=== PATIENT | female | born 1990 | race Caucasian/White ===

== ENCOUNTER → 2016-05-13 | Outpatient (REF) | payer BC ==
[~2016-05-13] MED LIST: CLAR10CA3 PO; CYMB1CAP5 PO; METF500T PO; OMEP20CA3 PO; PLAQUENIL PO; PRENTAB52 PO; TYLE325C PO
== END ==
LOC: M SFHCPLAZ 17:07
PROVIDERS: ATTEND Nurse Practitioner Adult Health
DX: J06.9 Acute upper respiratory infection, unspecified (principal)

== ENCOUNTER 2016-05-17 12:48 | Emergency (ER) | payer BC ==
[2016-05-17] MEDS ORDERED: MECLIZINE 12.5 MG TAB As Ordered ONE (16:52)
[2016-05-17 17:22] LABS: BASO % 0.5 % (0.0-1.0); EOS # 0.2 K/mm3 (0.0-0.50); EOS % 2.6 % (0.0-3.0); LARGE UNSTAINED CELL # 0.3 K/mm3 (0.0-0.4); LARGE UNSTAINED CELL % 3.5 % (0.0-4.0); LYMPH # 2.3 K/mm3 (1.5-6.5); LYMPH % 24.2 % (24.0-44.0); MEAN CORPUSCULAR HEMOGLOBIN 30.5 pg (27.0-33.0); MEAN CORPUSCULAR HGB CONC 34.6 g/dl (32.0-36.5); MEAN CORPUSCULAR VOLUME 88.1 fl (80.0-96.0); MONO # 0.4 K/mm3 (0.0-0.8); MONO % 4.6 % (0.0-5.0); NEUTROPHILS # 6.1 K/mm3 (1.8-7.7); NEUTROPHILS % 64.6 % (36.0-66.0); PLATELET COUNT, AUTOMATED 344 k/mm3 (150-450); RED CELL DISTRIBUTION WIDTH 12.4 % (11.5-14.5); WHITE BLOOD COUNT 9.5 K/mm3 (4.0-10.0)
[2016-05-17 17:26] LABS: CONTROL LINE UCG INT CTR LINE PRESENT
[2016-05-17 17:53] LABS: ALBUMIN 4.1 GM/DL (3.2-5.2); ALBUMIN/GLOBULIN RATIO 0.91 (1.00-1.93); ALKALINE PHOSPHATASE 92 U/L (45-117); ALT/SGPT 76 U/L (12-78); ANION GAP 12 MEQ/L (8-16); AST/SGOT 62 U/L (15-37); BILIRUBIN,DIRECT 0.1 MG/DL (0.0-0.2); BILIRUBIN,TOTAL 0.5 MG/DL (0.2-1.0); BLOOD UREA NITROGEN 8 MG/DL (7-18); CALCIUM LEVEL 9.1 MG/DL (8.5-10.1); CARBON DIOXIDE LEVEL 26 MEQ/L (21-32); CHLORIDE LEVEL 99 MEQ/L (98-107); CREATININE FOR GFR 0.65 MG/DL (0.55-1.02); GLOMERULAR FILTRATION RATE > 60.0 (>60); GLUCOSE, FASTING 113 MG/DL (70-105); POTASSIUM SERUM 3.8 MEQ/L (3.5-5.1); SODIUM LEVEL 137 MEQ/L (136-145); T UPTAKE 31 % (30-39); THYROXINE (T4) 10.3 UG/DL (4.5-12.0); TOTAL PROTEIN 8.6 GM/DL (6.4-8.2)
--- NOTE | 2016-05-17 18:42 | EDDOCDS ---
Nurse's Notes [facility] Name: Leann Roberts Age: 26 yrs Sex: Female : 1990 Arrival Date: 05/17/2016 Time: 12:48 Bed TR8 Private MD: April Corey E. Diagnosis: Dizziness and giddiness;Acute pharyngitis Presentation: 05/17 13:04 Presenting complaint: Patient states: that she has had strep throat approx 3 times in ms18 the last month and is now c/o dizziness. Pt called her doctor and was instructed to come to the ED for further evaluation. Adult Sepsis Screening: The patient does not have new or worsening altered mentation. Patient's respiratory rate is less than 22. Systolic blood pressure is greater than 100. Patient has a qSOFA score of 0- Negative Sepsis Screen. Suicide/Homicide risk assessment- the patient denies having any suicidal and/or homicidal ideations and does not present with any other emotional, behavioral or mental health complaints. Status: Patient is not a extension service advisor or dependent. Transition of care: patient was not received from another setting of care. 13:04 Acuity: RAINA Level 3 ms18 13:04 Method Of Arrival: Walkin/Carried/Asstd ms18 Triage Assessment: 13:09 General: Appears in no apparent distress, comfortable, obese, Behavior is appropriate ms18 for age, cooperative. Pain: Location: "general" body pain Pain currently is 4 out of 10 on a pain scale. HIV screening NA for this visit Offered previously. Neurological: Level of Consciousness is awake, alert, obeys commands, Oriented to person, place, time. Respiratory: Airway is patent Respiratory effort is even, unlabored. Derm: Skin is pink, warm & dry. 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 Claritin 10 mg Oral tab 1 tab once daily 2. Cymbalta 30 mg Oral cpDR 1 cap once daily 3. metformin 500 mg oral tab 1 tab daily 4. multivitamin Oral tab 1 tab daily 5. omeprazole 20 mg Oral cpDR 1 cap once daily 6. Vitamin D Oral 4000 unit 7. Plaquenil 400 mg Oral once daily 8. penicillin V potassium 500 mg Oral tab 1 tab every 12 hours 9. albuterol sulfate 90 mcg/actuation Inhl HFAA 1 puff as needed 10. Singulair Oral new med, hasn't started taking this yet - PMHx: Diabetes - NIDDM: controlled; Endometriosis; Annette's Disease; IBS; Lupus; Migraine Headaches; - PSHx: R kidney biopsy; Adenoidectomy; Skin Graft; Colonoscopy; Endoscopy, Upper; - Social history: Smoking status: Patient states was never smoker of tobacco. No barriers to communication noted, The patient speaks fluent Portuguese. - Family history: Not pertinent. - : The pt / caregiver states he / she is not on anticoagulants. Home medication list is obtained from the patient. - Exposure Risk Screening:: None identified. Screenin:38 Screening information is obtained from the patient. Fall risk: No risks identified. ms18 Assistance ADL's: requires no assistance with activities of daily living. Abuse/DV Screen: The patient / caregiver reports he/she is: not in a situation that causes fear, pain or injury. Nutritional screening: No deficits noted. Advance Directives: There is no living will. home support is adequate. Assessment: 17:05 General: Appears in no apparent distress, comfortable, Behavior is appropriate for age, ms18 cooperative. Neurological: Level of Consciousness is awake, alert, obeys commands, Oriented to person, place, time, Moves all extremities. Gait is steady, Speech is normal, Facial symmetry appears normal. Respiratory: Airway is patent Respiratory effort is even, unlabored. Derm: Skin is pink, warm & dry. 18:38 General: Appears in no apparent distress, comfortable, Behavior is appropriate for age, ms18 cooperative, quiet. Pain: Denies pain. Neurological: Level of Consciousness is awake, alert, obeys commands, Oriented to person, place, time. Respiratory: Airway is patent Respiratory effort is even, unlabored, Respiratory pattern is regular, symmetrical. GI: Abdomen is non- distended. Derm: Skin is pink, warm & dry. Vital Signs: 12:49 BP 154 / 96; Pulse 91; Resp 18 S; Temp 98.5(O); Pulse Ox 99% on R/A; Weight 95.25 kg dd6 (R); Height 5 ft. 5 in. (165.10 cm) (R); 15:32 BP 138 / 93; Pulse 96; Resp 18; Temp 98.2(TE); Pulse Ox 98% on R/A; Pain 4/10; ar3 18:38 BP 136 / 96; Pulse 80; Resp 18; Temp 97; Pulse Ox 98% ; Pain 0/10; ms18 12:49 Body Mass Index 34.95 (95.25 kg, 165.10 cm) dd6 Vitals: 12:49 Log In Time: May 17, 2016 at 12:47. dd6 ED Course: 12:49 Patient visited by Eduardo Myers PCA. dd6 12:49 April Corey is Private Physician. dd6 12:49 Patient moved to Waiting dd6 12:50 Patient moved to Pre RCE dd6 13:05 Triage Initiated ms18 15:35 Patient visited by Kassie Marley PCA. ar3 16:09 Patient moved to Triage 3 ar3 16:34 Cuco Cisneros PA is PHCP. mo1 16:34 Tg Samuel MD is Attending Physician. mo1 16:48 Patient visited by Cuco Cisneros PA. mo1 17:04 [facility] Payment Agreement was scanned into [employer] and attached to record. gjb 17:04 Thyroid Profile Sent. ms18 17:04 Basic Metabolic Profile Sent. ms18 17:04 CBC with Diff Sent. ms18 17:04 Liver Profile Sent. ms18 17:04 Urinalysis Sent. ms18 17:04 Urine Test-In Lab Sent. ms18 17:06 Patient moved to TR2 ms18 18:08 Patient moved to PD ms18 18:17 Patient visited by Fern Hilton RN. ms18 18:29 April Corey is Referral Physician. mo1 18:36 Nicolas Ramos is Referral Physician. mo1 18:38 Patient moved to TR8 ms18 18:38 The patient / caregiver is instructed regarding the plan of care and ED course. Patient ms18 has correct armband on for positive identification. Property sent home with patient. :Personal belongings accompany Pt. 18:38 No IV's were initiated during this patient's visit. No procedures done that require ms18 assistance. Administered Medications: 17:04 Drug: Meclizine 25 mg [meclizine 12.5 mg tablet (2 tabs)] Route: PO; ms18 Order Results: Lab Order: Basic Metabolic Profile; SPEC'M 05/17/16 17:02 Test: GLUCOSE, FASTING; Value: 113; Range: 70-105; Abnormal: Above high normal; Units: MG/DL; Status: F Test: BLOOD UREA NITROGEN; Value: 8; Range: 7-18; Units: MG/DL; Status: F Test: CREATININE FOR GFR; Value: 0.65; Range: 0.55-1.02; Units: MG/DL; Status: F Test: GLOMERULAR FILTRATION RATE; Value: > 60.0; Range: >60; Status: F Test: SODIUM LEVEL; Value: 137; Range: 136-145; Units: MEQ/L; Status: F Test: POTASSIUM SERUM; Value: 3.8; Range: 3.5-5.1; Units: MEQ/L; Status: F Test: CHLORIDE LEVEL; Value: 99; Range: 98-107; Units: MEQ/L; Status: F Test: CARBON DIOXIDE LEVEL; Value: 26; Range: 21-32; Units: MEQ/L; Status: F Test: ANION GAP; Value: 12; Range: 8-16; Units: MEQ/L; Status: F Test: CALCIUM LEVEL; Value: 9.1; Range: 8.5-10.1; Units: MG/DL; Status: F Test Note: ; Units are mL/min/1.73 m2 Chronic Kidney Disease Staging per NKF: Stage I & II GFR >=60 Normal to Mildly Decreased Stage III GFR 30-59 Moderately Decreased Stage IV GFR 15-29 Severely Decreased Stage V GFR <15 Very Little GFR Left ESRD GFR <15 on 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 Lab Order: CBC with Diff; SPEC'M 05/17/16 17:02 Test: WHITE BLOOD COUNT; Value: 9.5; Range: 4.0-10.0; Units: K/mm3; Status: F Test: RED BLOOD COUNT; Value: 4.89; Range: 4.00-5.40; Units: M/mm3; Status: F Test: HEMOGLOBIN; Value: 14.9; Range: 12.0-16.0; Units: g/dl; Status: F Test: HEMATOCRIT; Value: 43.1; Range: 36.0-47.0; Units: %; Status: F Test: MEAN CORPUSCULAR VOLUME; Value: 88.1; Range: 80.0-96.0; Units: fl; Status: F Test: MEAN CORPUSCULAR HEMOGLOBIN; Value: 30.5; Range: 27.0-33.0; Units: pg; Status: F Test: MEAN CORPUSCULAR HGB CONC; Value: 34.6; Range: 32.0-36.5; Units: g/dl; Status: F Test: RED CELL DISTRIBUTION WIDTH; Value: 12.4; Range: 11.5-14.5; Units: %; Status: F Test: PLATELET COUNT, AUTOMATED; Value: 344; Range: 150-450; Units: k/mm3; Status: F Test: NEUTROPHILS %; Value: 64.6; Range: 36.0-66.0; Units: %; Status: F Test: LYMPH %; Value: 24.2; Range: 24.0-44.0; Units: %; Status: F Test: MONO %; Value: 4.6; Range: 0.0-5.0; Units: %; Status: F Test: EOS %; Value: 2.6; Range: 0.0-3.0; Units: %; Status: F Test: BASO %; Value: 0.5; Range: 0.0-1.0; Units: %; Status: F Test: LARGE UNSTAINED CELL %; Value: 3.5; Range: 0.0-4.0; Units: %; Status: F Test: NEUTROPHILS #; Value: 6.1; Range: 1.8-7.7; Units: K/mm3; Status: F Test: LYMPH #; Value: 2.3; Range: 1.5-6.5; Units: K/mm3; Status: F Test: MONO #; Value: 0.4; Range: 0.0-0.8; Units: K/mm3; Status: F Test: EOS #; Value: 0.2; Range: 0.0-0.50; Units: K/mm3; Status: F Test: BASO #; Value: 0.0; Range: 0.0-0.2; Units: K/mm3; Status: F Test: LARGE UNSTAINED CELL #; Value: 0.3; Range: 0.0-0.4; Units: K/mm3; Status: F Lab Order: Liver Profile; SPEC'M 05/17/16 17:02 Test: AST/SGOT; Value: 62; Range: 15-37; Abnormal: Above high normal; Units: U/L; Status: F Test: ALT/SGPT; Value: 76; Range: 12-78; Units: U/L; Status: F Test: ALKALINE PHOSPHATASE; Value: 92; Range: 45-117; Units: U/L; Status: F Test: BILIRUBIN,TOTAL; Value: 0.5; Range: 0.2-1.0; Units: MG/DL; Status: F Test: BILIRUBIN,DIRECT; Value: 0.1; Range: 0.0-0.2; Units: MG/DL; Status: F Test: TOTAL PROTEIN; Value: 8.6; Range: 6.4-8.2; Abnormal: Above high normal; Units: GM/DL; Status: F Test: ALBUMIN; Value: 4.1; Range: 3.2-5.2; Units: GM/DL; Status: F Test: ALBUMIN/GLOBULIN RATIO; Value: 0.91; Range: 1.00-1.93; Abnormal: Below low normal; Status: F Lab Order: Urinalysis; SPEC'M 05/17/16 16:54 Test: APPEARANCE, URINE; Value: HAZY; Range: CLEAR; Status: F Test: COLOR, URINE; Value: YELLOW; Range: YELLOW; Status: F Test: PH,URINE; Value: 5.0; Range: 5.0-9.0; Units: UNITS; Status: F Test: SPECIFIC GRAVITY URINE AUTO; Value: 1.024; Range: 1.002-1.035; Status: F Test: PROTEIN, URINE AUTO; Value: 2+; Range: NEGATIVE; Abnormal: Above high normal; Units: mg/dL; Status: F Test: GLUCOSE, URINE (UA) AUTO; Value: NEGATIVE; Range: NEGATIVE; Units: mg/dL; Status: F Test: KETONE, URINE AUTO; Value: 1+; Range: NEGATIVE; Abnormal: Above high normal; Units: mg/dL; Status: F Test: UROBILINOGEN, URINE AUTO; Value: 0.2; Range: 0.0-2.0; Units: mg/dL; Status: F Test: BILIRUBIN, URINE AUTO; Value: NEGATIVE; Range: NEGATIVE; Status: F Test: NITRITE, URINE AUTO; Value: NEGATIVE; Range: NEGATIVE; Status: F Test: LEUKOCYTE ESTERASE, URINE AUTO; Value: NEGATIVE; Range: NEGATIVE; Status: F Test: BLOOD, URINE BLOOD; Value: NEGATIVE; Range: NEGATIVE; Status: F Test: WBC, URINE AUTO; Value: 0; Range: 0-3; Units: /HPF; Status: F Test: RBC, URINE AUTO; Value: 2; Range: 0-3; Units: /HPF; Status: F Test: BACTERIA, URINE AUTO; Value: NEGATIVE; Range: NEGATIVE; Status: F Test: SQUAMOUS EPITHELIAL CELL UR AU; Value: 2; Range: 0-6; Units: /HPF; Status: F Test: MUCUS, URINE; Value: SMALL; Range: NEGATIVE; Status: F Test: HYALINE CAST, URINE AUTO; Value: 0; Range: 0-1; Units: /LPF; Status: F Lab Order: Urine Test-In Lab; SPEC'M 05/17/16 16:54 Test: URINE PREG TEST; Value: NEGATIVE; Range: NEGATIVE; Status: F Lab Order: Thyroid Profile; SPEC'M 05/17/16 17:02 Test: T UPTAKE; Value: 31; Range: 30-39; Units: %; Status: F Test: THYROXINE (T4); Value: 10.3; Range: 4.5-12.0; Units: UG/DL; Status: F Test: FREE THYROXINE INDEX; Value: 3.2; Range: 1.3-4.8; Units: %; Status: F Test: THYROID STIMULATING HORMONE; Value: 2.240; Range: 0.358-3.740; Units: uIU/ML; Status: F Outcome: 18:29 Discharge ordered by Provider. mo1 18:38 Discharge Assessment: Patient awake, alert and oriented x 3. No cognitive and/or ms18 functional deficits noted. Patient verbalized understanding of disposition instructions. patient administered narcotics - yes. Pt provided with safe discharge. The following High Risk Discharge criteria are identified: None. Discharged to home ambulatory. Condition: good Condition: stable Condition: improved. Discharge instructions given to patient, Instructed on discharge instructions, follow up and referral plans. Demonstrated understanding of instructions, Pt was receptive of discharge instructions/ teaching. No special radiology studies were completed. 18:41 Patient left the ED. ms18 Signatures: Eduardo Myers, HIGH SCHOOL FOREIGN LANGUAGE TUTOR HIGH SCHOOL FOREIGN LANGUAGE TUTOR dd6 Kassie Marley, HIGH SCHOOL FOREIGN LANGUAGE TUTOR HIGH SCHOOL FOREIGN LANGUAGE TUTOR ar3 Cuco iCsneros PA PA mo1 Fern Hilton,RN RN ms18 Deloris Kimble MTDD
--- NOTE | 2016-05-17 18:42 | EDDOCDS ---
Physician Documentation [facility] Name: Leann Roberts Age: 26 yrs Sex: Female : 1990 Arrival Date: 05/17/2016 Time: 12:48 Bed TR8 Private MD: April Corey E. Disposition: 05/17/16 18:29 Discharged to Home/Self Care. Impression: Dizziness and giddiness, Acute pharyngitis. - Condition is Stable. - Discharge Instructions: Dizziness, Pharyngitis, Strep Throat. - Medication Reconciliation, Local Pharmacy Hours form. - Follow up: April Corey; When: Call to arrange an appointment; Reason: Recheck today's complaints, Continuance of care. Follow up: Nicolas Ramos; When: Call to arrange an appointment; Reason: Recheck today's complaints, Continuance of care. - Problem is new. - Symptoms are unchanged. Historical: - Allergies: Bees; SULFA (SULFONAMIDES); - Home Meds: 1. Claritin 10 mg Oral tab 1 tab once daily 2. Cymbalta 30 mg Oral cpDR 1 cap once daily 3. metformin 500 mg oral tab 1 tab daily 4. multivitamin Oral tab 1 tab daily 5. omeprazole 20 mg Oral cpDR 1 cap once daily 6. Vitamin D Oral 4000 unit 7. Plaquenil 400 mg Oral once daily 8. penicillin V potassium 500 mg Oral tab 1 tab every 12 hours 9. albuterol sulfate 90 mcg/actuation Inhl HFAA 1 puff as needed 10. Singulair Oral new med, hasn't started taking this yet - PMHx: Diabetes - NIDDM: controlled; Endometriosis; Annette's Disease; IBS; Lupus; Migraine Headaches; - PSHx: R kidney biopsy; Adenoidectomy; Skin Graft; Colonoscopy; Endoscopy, Upper; - Social history: Smoking status: Patient states was never smoker of tobacco. No barriers to communication noted, The patient speaks fluent Bulgarian. - Family history: Not pertinent. - : The pt / caregiver states he / she is not on anticoagulants. Home medication list is obtained from the patient. - Exposure Risk Screening:: None identified. 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 5 in. (165.10 cm) (R); 15:32 BP 138 / 93; Pulse 96; Resp 18; Temp 98.2(TE); Pulse Ox 98% on R/A; Pain 4/10; ar3 18:38 BP 136 / 96; Pulse 80; Resp 18; Temp 97; Pulse Ox 98% ; Pain 0/10; ms18 12:49 Body Mass Index 34.95 (95.25 kg, 165.10 cm) dd6 MDM: 16:47 Undress patient appropriately for examination ordered. mo1 16:47 Meclizine 25 mg PO once ordered. mo1 16:48 Basic Metabolic Profile Ordered. EDMS 16:48 CBC with Diff Ordered. EDMS 16:48 Liver Profile Ordered. EDMS 16:48 Urinalysis Ordered. EDMS 16:48 Urine Test-In Lab Ordered. EDMS 16:48 Thyroid Profile Ordered. EDMS 16:48 NOTHING BY MOUTH+DIET ordered. EDMS 17:03 Financial registration complete. gjb 17:04 [facility] Payment Agreement was scanned into [employer] and attached to record. gjb 17:55 CBC with Diff Reviewed. mo1 17:55 Urinalysis Reviewed. mo1 17:56 Urine Test-In Lab Reviewed. mo1 18:10 Liver Profile Reviewed. mo1 18:10 Thyroid Profile Reviewed. mo1 18:10 Basic Metabolic Profile Reviewed. mo1 Administered Medications: 17:04 Drug: Meclizine 25 mg [meclizine 12.5 mg tablet (2 tabs)] Route: PO; ms18 Signatures: Dispatcher [employer] EDMS Cuco Cisneros PA PA mo1 Fern Hilton RN RN ms18 Deloris Kimble The chart was reviewed and I authenticate all verbal orders and agree with the evaluation and treatment provided.Attachments: 17:04 [facility] Payment Agreement gjb MTDD
--- NOTE | 2016-05-19 19:42 | EDDOCDS ---
Physician Documentation [facility] Name: Leann Roberts Age: 26 yrs Sex: Female : 1990 Arrival Date: 05/17/2016 Time: 12:48 Bed TR8 Private MD: April Corey E. Disposition: 05/17/16 18:29 Discharged to Home/Self Care. Impression: Dizziness and giddiness, Acute pharyngitis. - Condition is Stable. - Discharge Instructions: Dizziness, Pharyngitis, Strep Throat. - Medication Reconciliation, Local Pharmacy Hours form. - Follow up: April Corey; When: Call to arrange an appointment; Reason: Recheck today's complaints, Continuance of care. Follow up: Nicolas Ramos; When: Call to arrange an appointment; Reason: Recheck today's complaints, Continuance of care. - Problem is new. - Symptoms are unchanged. Historical: - Allergies: Bees; SULFA (SULFONAMIDES); - Home Meds: 1. Claritin 10 mg Oral tab 1 tab once daily 2. Cymbalta 30 mg Oral cpDR 1 cap once daily 3. metformin 500 mg oral tab 1 tab daily 4. multivitamin Oral tab 1 tab daily 5. omeprazole 20 mg Oral cpDR 1 cap once daily 6. Vitamin D Oral 4000 unit 7. Plaquenil 400 mg Oral once daily 8. penicillin V potassium 500 mg Oral tab 1 tab every 12 hours 9. albuterol sulfate 90 mcg/actuation Inhl HFAA 1 puff as needed 10. Singulair Oral new med, hasn't started taking this yet - PMHx: Diabetes - NIDDM: controlled; Endometriosis; Annette's Disease; IBS; Lupus; Migraine Headaches; - PSHx: R kidney biopsy; Adenoidectomy; Skin Graft; Colonoscopy; Endoscopy, Upper; - Social history: Smoking status: Patient states was never smoker of tobacco. No barriers to communication noted, The patient speaks fluent Nepali. - Family history: Not pertinent. - : The pt / caregiver states he / she is not on anticoagulants. Home medication list is obtained from the patient. - Exposure Risk Screening:: None identified. 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 5 in. (165.10 cm) (R); 15:32 BP 138 / 93; Pulse 96; Resp 18; Temp 98.2(TE); Pulse Ox 98% on R/A; Pain 4/10; ar3 18:38 BP 136 / 96; Pulse 80; Resp 18; Temp 97; Pulse Ox 98% ; Pain 0/10; ms18 12:49 Body Mass Index 34.95 (95.25 kg, 165.10 cm) dd6 MDM: 16:47 Undress patient appropriately for examination ordered. mo1 16:47 Meclizine 25 mg PO once ordered. mo1 16:48 Basic Metabolic Profile Ordered. EDMS 16:48 CBC with Diff Ordered. EDMS 16:48 Liver Profile Ordered. EDMS 16:48 Urinalysis Ordered. EDMS 16:48 Urine Test-In Lab Ordered. EDMS 16:48 Thyroid Profile Ordered. EDMS 16:48 NOTHING BY MOUTH+DIET ordered. EDMS 17:03 Financial registration complete. gjb 17:04 [facility] Payment Agreement was scanned into [employer] and attached to record. gjb 17:55 CBC with Diff Reviewed. mo1 17:55 Urinalysis Reviewed. mo1 17:56 Urine Test-In Lab Reviewed. mo1 18:10 Liver Profile Reviewed. mo1 18:10 Thyroid Profile Reviewed. mo1 18:10 Basic Metabolic Profile Reviewed. mo1 05/18 11:03 T-Sheet-- Draft Copy was scanned into [employer] and attached to record. gb Administered Medications: 05/17 17:04 Drug: Meclizine 25 mg [meclizine 12.5 mg tablet (2 tabs)] Route: PO; ms18 Signatures: Dispatcher [employer] EDMS Aleyda Miranda, Cuco Johnston PA PA mo1 Fern Hilton RN RN ms18 Deloris Kimbleb The chart was reviewed and I authenticate all verbal orders and agree with the evaluation and treatment provided.Attachments: 17:04 [facility] Payment Agreement [employer] [facility] 05/18 11:03 T-Sheet-- Draft Copy gb Chart Complete MTDD
--- NOTE | 2016-05-19 19:42 | EDDOCDS ---
Nurse's Notes [facility] Name: Leann Roberts Age: 26 yrs Sex: Female : 1990 Arrival Date: 05/17/2016 Time: 12:48 Bed TR8 Private MD: April Corey E. Diagnosis: Dizziness and giddiness;Acute pharyngitis Presentation: 05/17 13:04 Presenting complaint: Patient states: that she has had strep throat approx 3 times in ms18 the last month and is now c/o dizziness. Pt called her doctor and was instructed to come to the ED for further evaluation. Adult Sepsis Screening: The patient does not have new or worsening altered mentation. Patient's respiratory rate is less than 22. Systolic blood pressure is greater than 100. Patient has a qSOFA score of 0- Negative Sepsis Screen. Suicide/Homicide risk assessment- the patient denies having any suicidal and/or homicidal ideations and does not present with any other emotional, behavioral or mental health complaints. Status: Patient is not a track service person or dependent. Transition of care: patient was not received from another setting of care. 13:04 Acuity: RAINA Level 3 ms18 13:04 Method Of Arrival: Walkin/Carried/Asstd ms18 Triage Assessment: 13:09 General: Appears in no apparent distress, comfortable, obese, Behavior is appropriate ms18 for age, cooperative. Pain: Location: "general" body pain Pain currently is 4 out of 10 on a pain scale. HIV screening NA for this visit Offered previously. Neurological: Level of Consciousness is awake, alert, obeys commands, Oriented to person, place, time. Respiratory: Airway is patent Respiratory effort is even, unlabored. Derm: Skin is pink, warm & dry. 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 Claritin 10 mg Oral tab 1 tab once daily 2. Cymbalta 30 mg Oral cpDR 1 cap once daily 3. metformin 500 mg oral tab 1 tab daily 4. multivitamin Oral tab 1 tab daily 5. omeprazole 20 mg Oral cpDR 1 cap once daily 6. Vitamin D Oral 4000 unit 7. Plaquenil 400 mg Oral once daily 8. penicillin V potassium 500 mg Oral tab 1 tab every 12 hours 9. albuterol sulfate 90 mcg/actuation Inhl HFAA 1 puff as needed 10. Singulair Oral new med, hasn't started taking this yet - PMHx: Diabetes - NIDDM: controlled; Endometriosis; Annette's Disease; IBS; Lupus; Migraine Headaches; - PSHx: R kidney biopsy; Adenoidectomy; Skin Graft; Colonoscopy; Endoscopy, Upper; - Social history: Smoking status: Patient states was never smoker of tobacco. No barriers to communication noted, The patient speaks fluent Setswana. - Family history: Not pertinent. - : The pt / caregiver states he / she is not on anticoagulants. Home medication list is obtained from the patient. - Exposure Risk Screening:: None identified. Screenin:38 Screening information is obtained from the patient. Fall risk: No risks identified. ms18 Assistance ADL's: requires no assistance with activities of daily living. Abuse/DV Screen: The patient / caregiver reports he/she is: not in a situation that causes fear, pain or injury. Nutritional screening: No deficits noted. Advance Directives: There is no living will. home support is adequate. Assessment: 17:05 General: Appears in no apparent distress, comfortable, Behavior is appropriate for age, ms18 cooperative. Neurological: Level of Consciousness is awake, alert, obeys commands, Oriented to person, place, time, Moves all extremities. Gait is steady, Speech is normal, Facial symmetry appears normal. Respiratory: Airway is patent Respiratory effort is even, unlabored. Derm: Skin is pink, warm & dry. 18:38 General: Appears in no apparent distress, comfortable, Behavior is appropriate for age, ms18 cooperative, quiet. Pain: Denies pain. Neurological: Level of Consciousness is awake, alert, obeys commands, Oriented to person, place, time. Respiratory: Airway is patent Respiratory effort is even, unlabored, Respiratory pattern is regular, symmetrical. GI: Abdomen is non- distended. Derm: Skin is pink, warm & dry. Vital Signs: 12:49 BP 154 / 96; Pulse 91; Resp 18 S; Temp 98.5(O); Pulse Ox 99% on R/A; Weight 95.25 kg dd6 (R); Height 5 ft. 5 in. (165.10 cm) (R); 15:32 BP 138 / 93; Pulse 96; Resp 18; Temp 98.2(TE); Pulse Ox 98% on R/A; Pain 4/10; ar3 18:38 BP 136 / 96; Pulse 80; Resp 18; Temp 97; Pulse Ox 98% ; Pain 0/10; ms18 12:49 Body Mass Index 34.95 (95.25 kg, 165.10 cm) dd6 Vitals: 12:49 Log In Time: May 17, 2016 at 12:47. dd6 ED Course: 12:49 Patient visited by Eduardo Myers PCA. dd6 12:49 April Corey is Private Physician. dd6 12:49 Patient moved to Waiting dd6 12:50 Patient moved to Pre RCE dd6 13:05 Triage Initiated ms18 15:35 Patient visited by Kassie Marley PCA. ar3 16:09 Patient moved to Triage 3 ar3 16:34 Cuco Cisneros PA is PHCP. mo1 16:34 Tg Samuel MD is Attending Physician. mo1 16:48 Patient visited by Cuco Cisneros PA. mo1 17:04 [facility] Payment Agreement was scanned into [employer] and attached to record. gjb 17:04 Thyroid Profile Sent. ms18 17:04 Basic Metabolic Profile Sent. ms18 17:04 CBC with Diff Sent. ms18 17:04 Liver Profile Sent. ms18 17:04 Urinalysis Sent. ms18 17:04 Urine Test-In Lab Sent. ms18 17:06 Patient moved to TR2 ms18 18:08 Patient moved to PD ms18 18:17 Patient visited by Fern Hilton RN. ms18 18:29 April Corey is Referral Physician. mo1 18:36 Nicolas Ramos is Referral Physician. mo1 18:38 Patient moved to TR8 ms18 18:38 The patient / caregiver is instructed regarding the plan of care and ED course. Patient ms18 has correct armband on for positive identification. Property sent home with patient. :Personal belongings accompany Pt. 18:38 No IV's were initiated during this patient's visit. No procedures done that require ms18 assistance. 05/18 11:03 T-Sheet-- Draft Copy was scanned into [employer] and attached to record. gb Administered Medications: 05/17 17:04 Drug: Meclizine 25 mg [meclizine 12.5 mg tablet (2 tabs)] Route: PO; ms18 Order Results: Lab Order: Basic Metabolic Profile; SPEC05/17/16 17:02 Test: GLUCOSE, FASTING; Value: 113; Range: 70-105; Abnormal: Above high normal; Units: MG/DL; Status: F Test: BLOOD UREA NITROGEN; Value: 8; Range: 7-18; Units: MG/DL; Status: F Test: CREATININE FOR GFR; Value: 0.65; Range: 0.55-1.02; Units: MG/DL; Status: F Test: GLOMERULAR FILTRATION RATE; Value: > 60.0; Range: >60; Status: F Test: SODIUM LEVEL; Value: 137; Range: 136-145; Units: MEQ/L; Status: F Test: POTASSIUM SERUM; Value: 3.8; Range: 3.5-5.1; Units: MEQ/L; Status: F Test: CHLORIDE LEVEL; Value: 99; Range: 98-107; Units: MEQ/L; Status: F Test: CARBON DIOXIDE LEVEL; Value: 26; Range: 21-32; Units: MEQ/L; Status: F Test: ANION GAP; Value: 12; Range: 8-16; Units: MEQ/L; Status: F Test: CALCIUM LEVEL; Value: 9.1; Range: 8.5-10.1; Units: MG/DL; Status: F Test Note: ; Units are mL/min/1.73 m2 Chronic Kidney Disease Staging per NKF: Stage I & II GFR >=60 Normal to Mildly Decreased Stage III GFR 30-59 Moderately Decreased Stage IV GFR 15-29 Severely Decreased Stage V GFR <15 Very Little GFR Left ESRD GFR <15 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 Lab Order: CBC with Diff; SPEC05/17/16 17:02 Test: WHITE BLOOD COUNT; Value: 9.5; Range: 4.0-10.0; Units: K/mm3; Status: F Test: RED BLOOD COUNT; Value: 4.89; Range: 4.00-5.40; Units: M/mm3; Status: F Test: HEMOGLOBIN; Value: 14.9; Range: 12.0-16.0; Units: g/dl; Status: F Test: HEMATOCRIT; Value: 43.1; Range: 36.0-47.0; Units: %; Status: F Test: MEAN CORPUSCULAR VOLUME; Value: 88.1; Range: 80.0-96.0; Units: fl; Status: F Test: MEAN CORPUSCULAR HEMOGLOBIN; Value: 30.5; Range: 27.0-33.0; Units: pg; Status: F Test: MEAN CORPUSCULAR HGB CONC; Value: 34.6; Range: 32.0-36.5; Units: g/dl; Status: F Test: RED CELL DISTRIBUTION WIDTH; Value: 12.4; Range: 11.5-14.5; Units: %; Status: F Test: PLATELET COUNT, AUTOMATED; Value: 344; Range: 150-450; Units: k/mm3; Status: F Test: NEUTROPHILS %; Value: 64.6; Range: 36.0-66.0; Units: %; Status: F Test: LYMPH %; Value: 24.2; Range: 24.0-44.0; Units: %; Status: F Test: MONO %; Value: 4.6; Range: 0.0-5.0; Units: %; Status: F Test: EOS %; Value: 2.6; Range: 0.0-3.0; Units: %; Status: F Test: BASO %; Value: 0.5; Range: 0.0-1.0; Units: %; Status: F Test: LARGE UNSTAINED CELL %; Value: 3.5; Range: 0.0-4.0; Units: %; Status: F Test: NEUTROPHILS #; Value: 6.1; Range: 1.8-7.7; Units: K/mm3; Status: F Test: LYMPH #; Value: 2.3; Range: 1.5-6.5; Units: K/mm3; Status: F Test: MONO #; Value: 0.4; Range: 0.0-0.8; Units: K/mm3; Status: F Test: EOS #; Value: 0.2; Range: 0.0-0.50; Units: K/mm3; Status: F Test: BASO #; Value: 0.0; Range: 0.0-0.2; Units: K/mm3; Status: F Test: LARGE UNSTAINED CELL #; Value: 0.3; Range: 0.0-0.4; Units: K/mm3; Status: F Lab Order: Liver Profile; SPEC'M 05/17/16 17:02 Test: AST/SGOT; Value: 62; Range: 15-37; Abnormal: Above high normal; Units: U/L; Status: F Test: ALT/SGPT; Value: 76; Range: 12-78; Units: U/L; Status: F Test: ALKALINE PHOSPHATASE; Value: 92; Range: 45-117; Units: U/L; Status: F Test: BILIRUBIN,TOTAL; Value: 0.5; Range: 0.2-1.0; Units: MG/DL; Status: F Test: BILIRUBIN,DIRECT; Value: 0.1; Range: 0.0-0.2; Units: MG/DL; Status: F Test: TOTAL PROTEIN; Value: 8.6; Range: 6.4-8.2; Abnormal: Above high normal; Units: GM/DL; Status: F Test: ALBUMIN; Value: 4.1; Range: 3.2-5.2; Units: GM/DL; Status: F Test: ALBUMIN/GLOBULIN RATIO; Value: 0.91; Range: 1.00-1.93; Abnormal: Below low normal; Status: F Lab Order: Urinalysis; SPEC'M 05/17/16 16:54 Test: APPEARANCE, URINE; Value: HAZY; Range: CLEAR; Status: F Test: COLOR, URINE; Value: YELLOW; Range: YELLOW; Status: F Test: PH,URINE; Value: 5.0; Range: 5.0-9.0; Units: UNITS; Status: F Test: SPECIFIC GRAVITY URINE AUTO; Value: 1.024; Range: 1.002-1.035; Status: F Test: PROTEIN, URINE AUTO; Value: 2+; Range: NEGATIVE; Abnormal: Above high normal; Units: mg/dL; Status: F Test: GLUCOSE, URINE (UA) AUTO; Value: NEGATIVE; Range: NEGATIVE; Units: mg/dL; Status: F Test: KETONE, URINE AUTO; Value: 1+; Range: NEGATIVE; Abnormal: Above high normal; Units: mg/dL; Status: F Test: UROBILINOGEN, URINE AUTO; Value: 0.2; Range: 0.0-2.0; Units: mg/dL; Status: F Test: BILIRUBIN, URINE AUTO; Value: NEGATIVE; Range: NEGATIVE; Status: F Test: NITRITE, URINE AUTO; Value: NEGATIVE; Range: NEGATIVE; Status: F Test: LEUKOCYTE ESTERASE, URINE AUTO; Value: NEGATIVE; Range: NEGATIVE; Status: F Test: BLOOD, URINE BLOOD; Value: NEGATIVE; Range: NEGATIVE; Status: F Test: WBC, URINE AUTO; Value: 0; Range: 0-3; Units: /HPF; Status: F Test: RBC, URINE AUTO; Value: 2; Range: 0-3; Units: /HPF; Status: F Test: BACTERIA, URINE AUTO; Value: NEGATIVE; Range: NEGATIVE; Status: F Test: SQUAMOUS EPITHELIAL CELL UR AU; Value: 2; Range: 0-6; Units: /HPF; Status: F Test: MUCUS, URINE; Value: SMALL; Range: NEGATIVE; Status: F Test: HYALINE CAST, URINE AUTO; Value: 0; Range: 0-1; Units: /LPF; Status: F Lab Order: Urine Test-In Lab; SPEC'M 05/17/16 16:54 Test: URINE PREG TEST; Value: NEGATIVE; Range: NEGATIVE; Status: F Lab Order: Thyroid Profile; SPEC'M 05/17/16 17:02 Test: T UPTAKE; Value: 31; Range: 30-39; Units: %; Status: F Test: THYROXINE (T4); Value: 10.3; Range: 4.5-12.0; Units: UG/DL; Status: F Test: FREE THYROXINE INDEX; Value: 3.2; Range: 1.3-4.8; Units: %; Status: F Test: THYROID STIMULATING HORMONE; Value: 2.240; Range: 0.358-3.740; Units: uIU/ML; Status: F Outcome: 18:29 Discharge ordered by Provider. mo1 18:38 Discharge Assessment: Patient awake, alert and oriented x 3. No cognitive and/or ms18 functional deficits noted. Patient verbalized understanding of disposition instructions. patient administered narcotics - yes. Pt provided with safe discharge. The following High Risk Discharge criteria are identified: None. Discharged to home ambulatory. Condition: good Condition: stable Condition: improved. Discharge instructions given to patient, Instructed on discharge instructions, follow up and referral plans. Demonstrated understanding of instructions, Pt was receptive of discharge instructions/ teaching. No special radiology studies were completed. 18:41 Patient left the ED. ms18 Signatures: Aleyda Miranda, Pablito Reg Eduardo Hewitt, ASSESSMENT ANALYST ASSESSMENT ANALYST dd6 Kassie Marley, ASSESSMENT ANALYST ASSESSMENT ANALYST ar3 Cuco Cisneros PA PA mo1 Fern Hilton,JUANJO RN ms18 Deloris Kimble Chart Complete MTDD
--- NOTE | 2016-05-19 19:42 | EDDOCDS ---
Physician Documentation [facility] Name: Leann Roberts Age: 26 yrs Sex: Female : 1990 Arrival Date: 05/17/2016 Time: 12:48 Bed TR8 Private MD: April Corey E. Disposition: 05/17/16 18:29 Discharged to Home/Self Care. Impression: Dizziness and giddiness, Acute pharyngitis. - Condition is Stable. - Discharge Instructions: Dizziness, Pharyngitis, Strep Throat. - Medication Reconciliation, Local Pharmacy Hours form. - Follow up: April Corey; When: Call to arrange an appointment; Reason: Recheck today's complaints, Continuance of care. Follow up: Nicolas Ramos; When: Call to arrange an appointment; Reason: Recheck today's complaints, Continuance of care. - Problem is new. - Symptoms are unchanged. Historical: - Allergies: Bees; SULFA (SULFONAMIDES); - Home Meds: 1. Claritin 10 mg Oral tab 1 tab once daily 2. Cymbalta 30 mg Oral cpDR 1 cap once daily 3. metformin 500 mg oral tab 1 tab daily 4. multivitamin Oral tab 1 tab daily 5. omeprazole 20 mg Oral cpDR 1 cap once daily 6. Vitamin D Oral 4000 unit 7. Plaquenil 400 mg Oral once daily 8. penicillin V potassium 500 mg Oral tab 1 tab every 12 hours 9. albuterol sulfate 90 mcg/actuation Inhl HFAA 1 puff as needed 10. Singulair Oral new med, hasn't started taking this yet - PMHx: Diabetes - NIDDM: controlled; Endometriosis; Annette's Disease; IBS; Lupus; Migraine Headaches; - PSHx: R kidney biopsy; Adenoidectomy; Skin Graft; Colonoscopy; Endoscopy, Upper; - Social history: Smoking status: Patient states was never smoker of tobacco. No barriers to communication noted, The patient speaks fluent Yakut. - Family history: Not pertinent. - : The pt / caregiver states he / she is not on anticoagulants. Home medication list is obtained from the patient. - Exposure Risk Screening:: None identified. 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 5 in. (165.10 cm) (R); 15:32 BP 138 / 93; Pulse 96; Resp 18; Temp 98.2(TE); Pulse Ox 98% on R/A; Pain 4/10; ar3 18:38 BP 136 / 96; Pulse 80; Resp 18; Temp 97; Pulse Ox 98% ; Pain 0/10; ms18 12:49 Body Mass Index 34.95 (95.25 kg, 165.10 cm) dd6 MDM: 16:47 Undress patient appropriately for examination ordered. mo1 16:47 Meclizine 25 mg PO once ordered. mo1 16:48 Basic Metabolic Profile Ordered. EDMS 16:48 CBC with Diff Ordered. EDMS 16:48 Liver Profile Ordered. EDMS 16:48 Urinalysis Ordered. EDMS 16:48 Urine Test-In Lab Ordered. EDMS 16:48 Thyroid Profile Ordered. EDMS 16:48 NOTHING BY MOUTH+DIET ordered. EDMS 17:03 Financial registration complete. gjb 17:04 [facility] Payment Agreement was scanned into [employer] and attached to record. gjb 17:55 CBC with Diff Reviewed. mo1 17:55 Urinalysis Reviewed. mo1 17:56 Urine Test-In Lab Reviewed. mo1 18:10 Liver Profile Reviewed. mo1 18:10 Thyroid Profile Reviewed. mo1 18:10 Basic Metabolic Profile Reviewed. mo1 05/18 11:03 T-Sheet-- Draft Copy was scanned into [employer] and attached to record. gb Administered Medications: 05/17 17:04 Drug: Meclizine 25 mg [meclizine 12.5 mg tablet (2 tabs)] Route: PO; ms18 Signatures: Dispatcher [employer] EDMS Aleyda Miranda, Cuco Johnston PA PA mo1 Fern Hilton RN RN ms18 Deloris Kimbleb The chart was reviewed and I authenticate all verbal orders and agree with the evaluation and treatment provided.Attachments: 17:04 [facility] Payment Agreement [facility] 05/18 11:03 T-Sheet-- Draft Copy gb Chart Complete MTDD
== END 2016-05-17 18:41 | disposition home or self-care (01) ==
LOC: M ED 12:48
DX: J02.9 Acute pharyngitis, unspecified (principal); R42 Dizziness and giddiness; E11.9 Type 2 diabetes mellitus without complications; N80.9 Endometriosis, unspecified; K58.9 Irritable bowel syndrome, unspecified; M32.9 Systemic lupus erythematosus, unspecified; G43.909 Migraine, unspecified, not intractable, without status migrainosus; E06.3 Autoimmune thyroiditis; Z92.240 Personal history of inhaled steroid therapy; Z79.2 Long term (current) use of antibiotics; Z79.899 Other long term (current) drug therapy; Z88.2 Allergy status to sulfonamides; Z91.030 Bee allergy status

== ENCOUNTER → 2016-06-17 | Outpatient (REF) | payer BC ==
[2016-06-17 14:16] LABS: MEAN CORPUSCULAR HEMOGLOBIN 30.3 pg (27.0-33.0); MEAN CORPUSCULAR HGB CONC 34.1 g/dl (32.0-36.5); MEAN CORPUSCULAR VOLUME 89.1 fl (80.0-96.0); RED CELL DISTRIBUTION WIDTH 12.3 % (11.5-14.5); WHITE BLOOD COUNT 5.9 K/mm3 (4.0-10.0)
[2016-06-17 14:51] LABS: ALBUMIN 3.7 GM/DL (3.2-5.2); ALBUMIN/GLOBULIN RATIO 0.97 (1.00-1.93); ALKALINE PHOSPHATASE 87 U/L (45-117); ALT/SGPT 89 U/L (12-78); ANION GAP 6 MEQ/L (8-16); AST/SGOT 73 U/L (15-37); BILIRUBIN,TOTAL 0.3 MG/DL (0.2-1.0); BLOOD UREA NITROGEN 6 MG/DL (7-18); CALCIUM LEVEL 8.5 MG/DL (8.5-10.1); CARBON DIOXIDE LEVEL 28 MEQ/L (21-32); CHLORIDE LEVEL 106 MEQ/L (98-107); CREATININE FOR GFR 0.52 MG/DL (0.55-1.02); GLOMERULAR FILTRATION RATE > 60.0 (>60); GLUCOSE, FASTING 157 MG/DL (70-105); SODIUM LEVEL 140 MEQ/L (136-145); TOTAL PROTEIN 7.5 GM/DL (6.4-8.2)
== END ==
LOC: M SFHCPLAZ 13:25
PROVIDERS: ATTEND Family Medicine
DX: R10.11 Right upper quadrant pain (principal)

== ENCOUNTER → 2016-06-18 | Outpatient (REF) | payer BC | LOC: M SFHCPLAZ 16:57 | PROVIDERS: ATTEND Family Medicine | DX: R74.8 Abnormal levels of other serum enzymes (principal) ==

== ENCOUNTER → 2016-06-24 | Outpatient (CLI) | payer BC ==
--- NOTE | 2016-06-24 10:48 | REP ---
Clinical: Acute abdominal pain. Technique: Stewart scale ultrasound using curved array transducer. Findings: The liver is increased in echogenicity with poor through transmission suggesting hepatosteatosis. The pancreas is normal in contour, and echogenicity without focal pancreatic lesions identified. The gallbladder is normal without gallstones, wall thickening or pericholecystic fluid. No biliary ductal dilatation is appreciated, and the common bile duct measures 4.8 mm mm diameter. The right kidney is normal in reniform shape without hydronephrosis and measures 11.9 x 5.0 x 4.5 cm. No ascites. Visualized portions of the abdominal aorta normal. Impression: Hepatosteatosis. Signed by Isai Novoa MD 06/24/2016 10:39 A
== END ==
LOC: M RAD 09:52
PROVIDERS: ATTEND Family Medicine
DX: K76.89 Other specified diseases of liver (principal); R10.11 Right upper quadrant pain

== ENCOUNTER → 2016-07-01 | Day surgery (SDC) | payer BC ==
[~2016-07-01] VITALS: Ht 165.1 cm; Wt 95.3 kg
[~2016-07-01] MED LIST changes: +BUPIVACAINE HCL 0.5% 10 ML VIAL XX ONE; +BUPIVACAINE/EPIN 0.5% 30 ML VIAL As Ordered ONE; +DESFLURANE 240 ML INHALANT As Ordered ONE; +LIDOCAINE 2% INJ 100 MG/5 ML SDV (FOR ANES.) As Ordered ONE; +LIDOCAINE W/EPINEPHRINE 1% 20ML VIAL As Ordered ONE; +LIDOCAINE W/EPINEPHRINE 1% 20ML VIAL XX ONE; +LR 1,000 ML IV SCH; +MEPERIDINE 100 MG/ML IV PRN; +METOCLOPRAMIDE INJ 10MG/2ML VIAL (J2765) As Ordered ONE; +METOCLOPRAMIDE INJ 10MG/2ML VIAL (J2765) IV PRN; +MIDAZOLAM INJ 2 MG/2 ML VIAL (J2250) As Ordered ONE; +ONDANSETRON 4MG/2ML VIAL (J2405) As Ordered ONE; +ONDANSETRON 4MG/2ML VIAL (J2405) IV ONE; +ONDANSETRON 4MG/2ML VIAL (J2405) IV PRN; +PERCOCET 5MG/325MG TAB PO PRN; +PROPOFOL 200 MG/20 ML VIAL As Ordered ONE; +SUCCINYLCHOLINE 100 MG/5 ML SYRINGE (J0330) As Ordered ONE; +dexameTHASONE 4 MG/ML 1ML VIAL (J1100) As Ordered ONE; +fentaNYL 100 MCG/2 ML INJECTION (J3010) As Ordered ONE; +fentaNYL 100 MCG/2 ML INJECTION (J3010) IV PRN
[2016-07-01 11:20] LABS: CONTROL LINE UCG INT CTR LINE PRESENT
[2016-07-01 16:00] VITALS: BP 136/81
--- NOTE | 2016-07-02 08:17 | RO ---
DATE OF PROCEDURE: 07/01/2016 PREPROCEDURE DIAGNOSIS: Chronic tonsillitis. POSTPROCEDURE DIAGNOSIS: Chronic tonsillitis. PROCEDURE: Tonsillectomy. 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 The tonsillar area was infiltrated with lidocaine, epinephrine, and Marcaine. Using Coblator at 6 and 4, the tonsil was dissected free from its bed on both sides. The base, apex and other areas were cauterized on setting of 4 on the Coblator. No blood loss. The patient tolerated the procedure well. The patient was extubated and transferred to the recovery room in good condition.
== END | disposition home or self-care (01) ==
LOC: M SDC 10:32
PROVIDERS: ATTEND Otolaryngology
DX: J35.01 Chronic tonsillitis (principal); E11.9 Type 2 diabetes mellitus without complications; G47.30 Sleep apnea, unspecified; E04.1 Nontoxic single thyroid nodule; K21.9 Gastro-esophageal reflux disease without esophagitis; Z88.2 Allergy status to sulfonamides; M32.10 Systemic lupus erythematosus, organ or system involvement unspecified; F41.9 Anxiety disorder, unspecified; F32.9 Major depressive disorder, single episode, unspecified; Z79.899 Other long term (current) drug therapy; K58.8 Other irritable bowel syndrome
CPT/HCPCS: 42826; 84703; 88302; J0330; J1100; J2250; J2405; J2765; J3010

== ENCOUNTER 2016-07-07 11:54 | Emergency (ER) | payer BC ==
[~2016-07-07] VITALS: Ht 165.1 cm; Wt 90.7 kg
[~2016-07-07 11:54] MED LIST changes: -BUPIVACAINE HCL 0.5% 10 ML VIAL XX ONE; -BUPIVACAINE/EPIN 0.5% 30 ML VIAL As Ordered ONE; -DESFLURANE 240 ML INHALANT As Ordered ONE; -LIDOCAINE 2% INJ 100 MG/5 ML SDV (FOR ANES.) As Ordered ONE; -LIDOCAINE W/EPINEPHRINE 1% 20ML VIAL As Ordered ONE; -LIDOCAINE W/EPINEPHRINE 1% 20ML VIAL XX ONE; -LR 1,000 ML IV SCH; -MEPERIDINE 100 MG/ML IV PRN; -METOCLOPRAMIDE INJ 10MG/2ML VIAL (J2765) As Ordered ONE; -METOCLOPRAMIDE INJ 10MG/2ML VIAL (J2765) IV PRN; -MIDAZOLAM INJ 2 MG/2 ML VIAL (J2250) As Ordered ONE; -ONDANSETRON 4MG/2ML VIAL (J2405) As Ordered ONE; -ONDANSETRON 4MG/2ML VIAL (J2405) IV ONE; -ONDANSETRON 4MG/2ML VIAL (J2405) IV PRN; -PERCOCET 5MG/325MG TAB PO PRN; -PROPOFOL 200 MG/20 ML VIAL As Ordered ONE; -SUCCINYLCHOLINE 100 MG/5 ML SYRINGE (J0330) As Ordered ONE; -dexameTHASONE 4 MG/ML 1ML VIAL (J1100) As Ordered ONE; -fentaNYL 100 MCG/2 ML INJECTION (J3010) As Ordered ONE; -fentaNYL 100 MCG/2 ML INJECTION (J3010) IV PRN
[2016-07-07] MEDS ORDERED: PROA1AER INH (12:40)
[2016-07-07] MEDS ORDERED: VITA50003 PO (12:40)
[2016-07-07] MEDS ORDERED: OXAY1TAB PO (12:40)
[2016-07-07] MEDS ORDERED: ACET500C PO (12:40)
[2016-07-07] MEDS ORDERED: MONT10TA2 PO (12:40)
[2016-07-07] MEDS ORDERED: NS 1,000 ML IV ONE (14:30)
[2016-07-07] MEDS ORDERED: methylPREDNISolone INJ 125 MG/2 ML VIAL (J2930) IV ONE (14:30)
[2016-07-07] MEDS ORDERED: ONDANSETRON 4MG/2ML VIAL (J2405) IV ONE (14:30)
[2016-07-07 15:11] LABS: BASO % 0.4 % (0.0-1.0); EOS # 0.3 K/mm3 (0.0-0.50); EOS % 2.4 % (0.0-3.0); LARGE UNSTAINED CELL # 0.1 K/mm3 (0.0-0.4); LYMPH # 2.1 K/mm3 (1.5-6.5); LYMPH % 13.5 % (24.0-44.0); MEAN CORPUSCULAR HEMOGLOBIN 31.7 pg (27.0-33.0); MEAN CORPUSCULAR HGB CONC 35.5 g/dl (32.0-36.5); MEAN CORPUSCULAR VOLUME 89.4 fl (80.0-96.0); MONO # 0.7 K/mm3 (0.0-0.8); MONO % 4.5 % (0.0-5.0); NEUTROPHILS # 11.2 K/mm3 (1.8-7.7); NEUTROPHILS % 78.3 % (36.0-66.0); PLATELET COUNT, AUTOMATED 384 k/mm3 (150-450); RED CELL DISTRIBUTION WIDTH 12.8 % (11.5-14.5); WHITE BLOOD COUNT 14.2 K/mm3 (4.0-10.0)
[2016-07-07 15:57] LABS: ANION GAP 14 MEQ/L (8-16); BLOOD UREA NITROGEN 13 MG/DL (7-18); CARBON DIOXIDE LEVEL 21 MEQ/L (21-32); CHLORIDE LEVEL 102 MEQ/L (98-107); CREATININE FOR GFR 0.59 MG/DL (0.55-1.02); GLOMERULAR FILTRATION RATE > 60.0 (>60); GLUCOSE, FASTING 172 MG/DL (70-105); SODIUM LEVEL 137 MEQ/L (136-145)
[2016-07-07] MEDS ORDERED: MAGIC MOUTHWASH SUSPENSION BTL SS PRN (16:00)
[2016-07-07] MEDS ORDERED: MAGICMW MT (16:04)
[2016-07-07] MEDS ORDERED: PRED20TA PO (16:06)
[2016-07-07 16:35] VITALS: BP 129/78
[2016-07-07] MEDS ORDERED: ZOFR4TAB3 PO (16:42)
--- NOTE | 2016-07-08 20:13 | ECGEPIP ---
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
== END 2016-07-07 17:03 | disposition home or self-care (01) ==
LOC: M ED 13:57
DX: J02.9 Acute pharyngitis, unspecified (principal); R11.2 Nausea with vomiting, unspecified; Z98.890 Other specified postprocedural states; E11.9 Type 2 diabetes mellitus without complications; Z79.899 Other long term (current) drug therapy; Z79.84 Long term (current) use of oral hypoglycemic drugs; Z88.5 Allergy status to narcotic agent; Z88.2 Allergy status to sulfonamides
CPT/HCPCS: 36415; 80048; 85025; 93005; 96374; 96375; 99283; J2405; J2930

== ENCOUNTER → 2016-07-23 | Outpatient (CLI) | payer BC ==
[~2016-07-23] MED LIST changes: +ACET500C PO; +MAGICMW MT; +MONT10TA2 PO; +OXAY1TAB PO; +PRED20TA PO; +PROA1AER INH; +VITA50003 PO; +ZOFR4TAB3 PO
--- NOTE | 2016-07-23 12:27 | REP ---
Clinical: Thyroid nodule. Technique: Real time hayes scale and color evaluation using linear high frequency transducer. Findings: The thyroid gland is normal in contour, size, echogenicity. Right lobe measures 3.9 x 1.4 x 1.0 cm and includes solitary 9 x 4 x 3 mm hypoechoic nodule. Left lobe measures 3.7 x 1.5 x 1.2 cm and includes solitary 9 x 8 x 7 mm hypoechoic nodule. Impression: Solitary bilateral hypoechoic nodules are nonspecific in appearance. Signed by Isai Novoa MD 07/23/2016 12:19 P
== END ==
LOC: M RAD 11:47
PROVIDERS: ATTEND Internal Medicine Endocrinology, Diabetes & Metabolism
DX: E04.1 Nontoxic single thyroid nodule (principal)

== ENCOUNTER → 2016-08-09 | Outpatient (CLI) | payer BC ==
[~2016-08-09] MED LIST changes: +METHACHOLINE KIT (J7674) INH ONE
--- NOTE | 2016-08-09 13:15 | PFTRPT ---
PULMONARY FUNCTION REPORT ORDERING PROVIDER: JANUSZ Hernández DATE OF SERVICE: 08/09/16 SPIROMETRY: Excellent technical quality. The forced vital capacity is normal. The FEV1 is in proportion. The obstructive index is, therefore, normal. FLOW VOLUME LOOP: The expiratory limb of the flow volume loop is normal. LUNG VOLUMES: The total lung capacity is normal. The residual volume is in proportion. DIFFUSION CAPACITY: The diffusion capacity, although minimally reduced, corrects completely for alveolar volume. HEMOGLOBIN: No hemoglobin is available for comparison. AIRWAY MECHANICS: Airways resistance and conductance are normal. IMPRESSION: Probably normal study. MTDD
--- NOTE | 2016-08-09 14:07 | PFTRPT ---
METHACHOLINE CHALLENGE REPORT: ORDERING PROVIDER: JANUSZ Hernández DATE OF SERVICE: 08/09/16 INTERPRETATION: The study was of excellent technical quality. Under protocol, methacholine was administered. Even after a maximal dose of 25 mg (188.875 CDUs) of methacholine , no provocation dose was ever achieved. IMPRESSION: Negative methacholine challenge study. MTDD
== END ==
LOC: M CARPUL 12:20
PROVIDERS: ATTEND Nurse Practitioner Adult Health
DX: J06.9 Acute upper respiratory infection, unspecified (principal)

== ENCOUNTER → 2016-10-05 | Outpatient (REF) | payer BC ==
[~2016-10-05] MED LIST changes: -METHACHOLINE KIT (J7674) INH ONE
[2016-10-05 13:32] LABS: COMPLEMENT C4 37.7 MG/DL (10-40)
[2016-10-08 00:07] LABS: SJOGREN'S ANTI SS-A <0.2 AI (0.0-0.9); SJOGREN'S ANTI SS-B 2.2 AI (0.0-0.9)
== END ==
LOC: M LAB REF 12:45
PROVIDERS: ATTEND Internal Medicine Nephrology
DX: M32.9 Systemic lupus erythematosus, unspecified (principal); R80.9 Proteinuria, unspecified

== ENCOUNTER → 2016-11-18 | Outpatient (CLI) | payer BC ==
[~2016-11-18] MED LIST changes: -METF500T PO; +METF500T13 PO; -PROA1AER INH; +PROAAER10 INH; +RANI15TA PO; +VITA1CAP40 PO; +VITA200016 PO; -VITA50003 PO
[2016-11-18 17:53] LABS: BASO % 0.4 % (0.0-1.0); EOS # 0.1 K/mm3 (0.0-0.50); EOS % 1.8 % (0.0-3.0); LARGE UNSTAINED CELL # 0.1 K/mm3 (0.0-0.4); LARGE UNSTAINED CELL % 1.6 % (0.0-4.0); LYMPH % 24.8 % (24.0-44.0); MEAN CORPUSCULAR HEMOGLOBIN 30.7 pg (27.0-33.0); MEAN CORPUSCULAR HGB CONC 34.5 g/dl (32.0-36.5); MEAN CORPUSCULAR VOLUME 88.9 fl (80.0-96.0); MONO # 0.4 K/mm3 (0.0-0.8); MONO % 5.2 % (0.0-5.0); NEUTROPHILS % 66.2 % (36.0-66.0); PLATELET COUNT, AUTOMATED 316 k/mm3 (150-450); RED CELL DISTRIBUTION WIDTH 12.5 % (11.5-14.5); WHITE BLOOD COUNT 7.5 K/mm3 (4.0-10.0)
[2016-11-19 09:15] LABS: HBsAg Prenatal NEGATIVE (NEGATIVE)
== END ==
LOC: M LAB 15:57
PROVIDERS: ATTEND Specialist
DX: Z34.81 Encounter for supervision of other normal pregnancy, first trimester (principal)

== ENCOUNTER → 2016-11-30 | Outpatient (REF) | payer BC | LOC: M SFHCPLAZ 16:48 | PROVIDERS: ATTEND Physician Assistant Medical | DX: J02.9 Acute pharyngitis, unspecified (principal) ==

== ENCOUNTER 2016-12-03 12:51 | Emergency (ER) | payer BC ==
[~2016-12-03] VITALS: Ht 165.1 cm; Wt 89.5 kg
[~2016-12-03 12:51] MED LIST changes: -RANI15TA PO; -VITA200016 PO
[2016-12-03] MEDS ORDERED: RANI15TA PO (13:19)
[2016-12-03 15:55] VITALS: BP 140/102
--- NOTE | 2016-12-04 09:47 | ECGEPIP ---
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
== END 2016-12-03 16:20 | disposition home or self-care (01) ==
LOC: M ED 12:51
DX: O26.891 Other specified pregnancy related conditions, first trimester (principal); R07.89 Other chest pain; O24.425 Gestational diabetes mellitus in childbirth, controlled by oral hypoglycemic drugs; O99.341 Other mental disorders complicating pregnancy, first trimester; F99 Mental disorder, not otherwise specified; Z3A.11 11 weeks gestation of pregnancy

== ENCOUNTER → 2016-12-23 | Outpatient (REF) | payer BC ==
[~2016-12-23] MED LIST changes: +RANI15TA PO; +VITA200016 PO
== END ==
LOC: M LABDRAWP 16:00
PROVIDERS: ATTEND Specialist
DX: O24.111 Pre-existing type 2 diabetes mellitus, in pregnancy, first trimester (principal); Z3A.00 Weeks of gestation of pregnancy not specified

== ENCOUNTER → 2017-01-10 | Outpatient (REF) | payer BC | LOC: M LAB REF 17:07 | PROVIDERS: ATTEND Specialist | DX: Z34.82 Encounter for supervision of other normal pregnancy, second trimester (principal) ==

== ENCOUNTER 2017-01-17 17:13 | Emergency (ER) | payer BC ==
[~2017-01-17] VITALS: Ht 165.1 cm; Wt 86.4 kg
[~2017-01-17 17:13] MED LIST changes: -VITA200016 PO
[2017-01-17] MEDS ORDERED: VITA200016 PO (17:32)
[2017-01-17] MEDS ORDERED: NS 500 ML IV ONE (18:45)
[2017-01-17 19:47] LABS: BASO % 0.3 % (0.0-1.0); EOS # 0.1 K/mm3 (0.0-0.50); EOS % 1.4 % (0.0-3.0); LARGE UNSTAINED CELL # 0.2 K/mm3 (0.0-0.4); LARGE UNSTAINED CELL % 2.5 % (0.0-4.0); LYMPH % 22.3 % (24.0-44.0); MEAN CORPUSCULAR HEMOGLOBIN 31.9 pg (27.0-33.0); MEAN CORPUSCULAR HGB CONC 35.9 g/dl (32.0-36.5); MEAN CORPUSCULAR VOLUME 88.8 fl (80.0-96.0); MONO # 0.5 K/mm3 (0.0-0.8); MONO % 5.4 % (0.0-5.0); NEUTROPHILS # 6.2 K/mm3 (1.8-7.7); PLATELET COUNT, AUTOMATED 273 k/mm3 (150-450); RED CELL DISTRIBUTION WIDTH 12.8 % (11.5-14.5); WHITE BLOOD COUNT 9.1 K/mm3 (4.0-10.0)
[2017-01-17 19:52] LABS: INR 0.96
[2017-01-17 19:52] LABS: CONTROL LINE HCG INT CTR LINE PRESENT
--- NOTE | 2017-01-17 20:01 | REP ---
Obstetric sonography: History: Supervision of . Vaginal spotting. Findings: Scanning through the gravid uterus demonstrates a viable single intrauterine gestation in a cephalic lie. motion is observed. heart rate is recorded at 147 beats per minute. An anterior grade 0 placenta is seen without evidence of previa. Amniotic fluid is subjectively normal. Closed cervical length is 2.8 cm. No extrauterine abnormalities observed. Exam quality is inhibited by early gestational age. No anomaly is seen. lungs, diaphragm, left-sided stomach, abdominal wall cord insertion, urinary bladder, and upper and lower extremities are seen and are unremarkable. Biometry chart: BPD 3.5 cm = 16 weeks 5 days HC 12.7 cm = 16 weeks 3 days AC 10.2 cm = 16 weeks 2 days FL 2.2 cm = 16 weeks 3 days HL 2.0 cm = 16 weeks 0 days HC/AC ratio normal 1.25. Cephalic index normal 0.77. Estimated weight 153 grams, 0 pounds 5 ounces, 18th percentile for 17 weeks 1 day. Impression: Viable single intrauterine gestation at 16 weeks 3 days by today's composite criteria. COLE by today's sonography July 01, 2017. No complication is identified. Signed by Tomas Chaudhry MD 01/17/2017 08:07 P
[2017-01-17 20:12] LABS: ANION GAP 8 MEQ/L (8-16); BLOOD UREA NITROGEN 7 MG/DL (7-18); CALCIUM LEVEL 9.5 MG/DL (8.5-10.1); CARBON DIOXIDE LEVEL 27 MEQ/L (21-32); CHLORIDE LEVEL 104 MEQ/L (98-107); CREATININE FOR GFR 0.46 MG/DL (0.55-1.02); GLOMERULAR FILTRATION RATE > 60.0 (>60); GLUCOSE, FASTING 87 MG/DL (70-105); HCG, SERUM QUANTITATIVE 23268 MIU/ML; POTASSIUM SERUM 3.8 MEQ/L (3.5-5.1); SODIUM LEVEL 139 MEQ/L (136-145)
[2017-01-17 20:50] VITALS: BP 156/89
[2017-01-17] MEDS ORDERED: RHOGAM 300 MCG (1500 IU) INJ (J2790) IM SCH (21:00)
== END 2017-01-17 21:16 | disposition home or self-care (01) ==
LOC: M ED 17:31
DX: O20.0 Threatened abortion (principal); O99.612 Diseases of the digestive system complicating pregnancy, second trimester; K58.9 Irritable bowel syndrome, unspecified; K21.9 Gastro-esophageal reflux disease without esophagitis; O99.342 Other mental disorders complicating pregnancy, second trimester; F41.9 Anxiety disorder, unspecified; Z3A.17 17 weeks gestation of pregnancy; Z79.899 Other long term (current) drug therapy; Z88.0 Allergy status to penicillin; Z88.2 Allergy status to sulfonamides; Z88.5 Allergy status to narcotic agent; Z88.1 Allergy status to other antibiotic agents; O99.712 Diseases of the skin and subcutaneous tissue complicating pregnancy, second trimester; L23.1 Allergic contact dermatitis due to adhesives

== ENCOUNTER → 2017-01-25 | Outpatient (CLI) | payer BC ==
[~2017-01-25] MED LIST changes: +VITA200016 PO
--- NOTE | 2017-01-26 05:52 | REP ---
Clinical: History of lupus and diabetic nephropathy. Technique: Real time hayes scale ultrasound examination using curved array transducer. Findings: The bilateral kidneys are essentially normal in contour, size, echogenicity and reniform shape without hydronephrosis, nephrolithiasis, cystic or renal mass lesion. No perinephric fluid collections are identified. Suggestions for partial duplication of the bilateral collecting systems noted without hydronephrosis of either moiety. Bladder is normal in appearance and bilateral ureteral jets noted. Intrauterine noted (FHR equals 153 beats per minute). Right kidney measures 13.5 x 5.4 x 5.0 cm. Left kidney measures 13.6 x 5.2 x 5.9 cm. Prevoid bladder equals 295 ml. Postvoid bladder equals 23 ml. Postvoid residual equals 8%. Impression: Essentially normal appearance of the bilateral kidneys and bladder. Duplicated collecting system without hydronephrosis cannot be excluded. noted. Signed by Isai Novoa MD 01/26/2017 05:45 A
== END ==
LOC: M RAD 13:51
PROVIDERS: ATTEND Internal Medicine Nephrology
DX: N18.2 Chronic kidney disease, stage 2 (mild) (principal); E11.9 Type 2 diabetes mellitus without complications

== ENCOUNTER → 2017-02-01 | Outpatient (CLI) | payer BC ==
--- NOTE | 2017-02-01 19:46 | REP ---
Obstetric ultrasound for anatomy: There is a single intrauterine gestation in a breech presentation. There is motion and cardiac activity, the heart rate is 136 beats per minute. The placenta is anterior. There is no placenta previa or abruptio. The placenta is grade zero. The amniotic fluid volume subjectively is normal. The cervix measures 1.3 cm. The maternal adnexa and cul-de-sac are unremarkable. By the ultrasound today gestational age is 18-week 6 days with an COLE of 06/29/2017. By the first ultrasound gestational age is 18 weeks 4 days with an COEL of 07/01/2017. By LMP gestational age is 19 weeks 2 days with an COLE of 06/26/2017. weight is 268 grams (0 pounds, 9 ounces). This is the 36 percentile for 19 weeks 2 days. Following anatomic structures are identified and are unremarkable: Cranium, cavum septum pellucidum, cerebellum, lungs, diaphragm, stomach, cord insertion, three-vessel cord, kidneys, bladder, spine and upper lower extremities. Suboptimally demonstrated because of position are the upper lip and facial profile, four-chamber view of the heart and cardiac right and left ventricular outflow tracts. A followup study dedicated to these structures might be considered. Additionally, there are bilateral choroid plexus cysts. Signed by Miguel Dunbar MD 02/01/2017 07:37 P
== END ==
LOC: M RAD 16:00
PROVIDERS: ATTEND Specialist
DX: Z36.2 Encounter for other antenatal screening follow-up (principal)

== ENCOUNTER → 2017-03-21 | Outpatient (REF) | payer BC ==
[2017-03-21 18:34] LABS: COMPLEMENT C4 38.2 MG/DL (10-40)
== END ==
LOC: M LAB REF 17:07
PROVIDERS: ATTEND Internal Medicine Nephrology
DX: M32.10 Systemic lupus erythematosus, organ or system involvement unspecified (principal)

== ENCOUNTER → 2017-03-30 | Outpatient (CLI) | payer BC ==
[2017-03-30 19:35] LABS: BASO % 0.4 % (0.0-1.0); EOS # 0.2 10^3/uL (0.0-0.50); EOS % 1.7 % (0.0-3.0); IMMATURE GRANULOCYTE % 0.8 % (0-0); LYMPH # 2.2 10^3/uL (1.5-6.5); LYMPH % 21.3 % (24.0-44.0); MEAN CORPUSCULAR HEMOGLOBIN 32.1 pg (27.0-33.0); MEAN CORPUSCULAR HGB CONC 34.4 g/dl (32.0-36.5); MEAN CORPUSCULAR VOLUME 93.1 fl (80.0-96.0); MONO % 9.4 % (0.0-5.0); NEUTROPHILS # 6.9 10^3/uL (1.8-7.7); NEUTROPHILS % 66.4 % (36.0-66.0); PLATELET COUNT, AUTOMATED 341 10^3/uL (150-450); RED CELL DISTRIBUTION WIDTH 12.1 % (11.5-14.5); WHITE BLOOD COUNT 10.3 10^3/uL (4.0-10.0)
== END ==
LOC: M LAB 18:01
PROVIDERS: ATTEND Specialist
DX: Z34.82 Encounter for supervision of other normal pregnancy, second trimester (principal)

== ENCOUNTER → 2017-03-30 | Outpatient (CLI) | payer BC ==
--- NOTE | 2017-03-30 18:28 | REP ---
Clinical: Anatomical evaluation. Comparison: 03/02/2017 . Findings: Examination demonstrates a single live intrauterine in breech presentation. motion is identified by technologist. Placenta is noted anteriorly and grade one without evidence for placenta previa or abruption. Amniotic fluid volume index equals 6.6 cm. Cervix measures 3.7 cm in length and appears closed. N nuchal cord cannot be excluded. Gestational age by LMP 27 weeks 3 days with COLE 06/26/2017 . Gestational age by current measurements 27 weeks 2 days with COLE 06/27/2017 . FHR equals 153 beats per minute. Estimated weight 1063 grams ( 41st percentile). Anatomical assessment demonstrates normal cranium, cavum, lungs, four-chamber heart, diaphragm, stomach, three-vessel cord and bladder. Impression: 1. Single live intrauterine demonstrating appropriate interval growth. 2. Mild oligohydramnios (BATSHEVA equals 6.6 cm). 3. In conjunction with prior examination anatomical assessment is complete and normal. 4. Nuchal cord cannot be excluded. Signed by Isai Novoa MD 03/30/2017 06:21 P
== END ==
LOC: M RAD 17:23
PROVIDERS: ATTEND Specialist
DX: Z34.82 Encounter for supervision of other normal pregnancy, second trimester (principal)

== ENCOUNTER → 2017-04-08 | Outpatient (CLI) | payer BC ==
--- NOTE | 2017-04-08 08:46 | REP ---
Obstetric ultrasound for borderline oligohydramnios : Comparison is 03/30/2017. There is a single intrauterine gestation in a vertex presentation. The placenta is anterior. There is no placenta previa. Subjectively there is oligohydramnios. The amniotic fluid index is 8.3 (9.3 - 23.0). heart rate is 171 beats per minute. Cervix is 2.8 centimeters length. Umbilical artery Doppler assessment: SD ratio 2.85 (2.53 - 3.65) Resistive index 0.65 (0.59 - 0.75) Diastolic flow velocity 10.6 cm/sec. This is borderline low). Impression: Oligohydramnios. Borderline low umbilical artery diastolic flow velocity . Signed by Miguel Dunbar MD 04/08/2017 08:37 A
== END ==
LOC: M RAD 07:32
PROVIDERS: ATTEND Specialist
DX: O24.112 Pre-existing type 2 diabetes mellitus, in pregnancy, second trimester (principal); O41.02 Oligohydramnios, second trimester; Z3A.00 Weeks of gestation of pregnancy not specified

== ENCOUNTER → 2017-04-27 | Outpatient (CLI) | payer BC | LOC: M RAD 08:35 | DX: O24.112 Pre-existing type 2 diabetes mellitus, in pregnancy, second trimester (principal); Z3A.32 32 weeks gestation of pregnancy | CPT/HCPCS: 76819 ==

== ENCOUNTER 2017-05-05 09:27 | Outpatient (CLI) | payer BC ==
[2017-05-05 10:38] LABS: BASO # 0.1 10^3/uL (0.0-0.2); BASO % 0.5 % (0.0-1.0); EOS # 0.2 10^3/uL (0.0-0.50); EOS % 1.6 % (0.0-3.0); HEMATOCRIT 34.8 % (36.0-47.0); HEMOGLOBIN 12.2 g/dl (12.0-16.0); IMMATURE GRANULOCYTE # 0.1 10^3/uL (0-0); IMMATURE GRANULOCYTE % 0.6 % (0-0); LYMPH # 1.7 10^3/uL (1.5-6.5); LYMPH % 16.6 % (24.0-44.0); MEAN CORPUSCULAR HEMOGLOBIN 31.8 pg (27.0-33.0); MEAN CORPUSCULAR HGB CONC 35.1 g/dl (32.0-36.5); MEAN CORPUSCULAR VOLUME 90.6 fl (80.0-96.0); MONO # 0.8 10^3/uL (0.0-0.8); MONO % 7.3 % (0.0-5.0); NEUTROPHILS # 7.6 10^3/uL (1.8-7.7); NEUTROPHILS % 73.4 % (36.0-66.0); PLATELET COUNT, AUTOMATED 273 10^3/uL (150-450); RED BLOOD COUNT 3.84 10^6/uL (4.00-5.40); RED CELL DISTRIBUTION WIDTH 12.4 % (11.5-14.5); WHITE BLOOD COUNT 10.3 10^3/uL (4.0-10.0)
[2017-05-05 11:01] LABS: ALBUMIN 2.8 GM/DL (3.2-5.2); ALBUMIN/GLOBULIN RATIO 0.64 (1.00-1.93); ALKALINE PHOSPHATASE 89 U/L (45-117); ALT/SGPT 10 U/L (12-78); ANION GAP 10 MEQ/L (8-16); AST/SGOT 13 U/L (7-37); BILIRUBIN,TOTAL 0.4 MG/DL (0.2-1.0); BLOOD UREA NITROGEN 5 MG/DL (7-18); CALCIUM LEVEL 8.6 MG/DL (8.5-10.1); CARBON DIOXIDE LEVEL 23 MEQ/L (21-32); CHLORIDE LEVEL 105 MEQ/L (98-107); CREATININE FOR GFR 0.35 MG/DL (0.55-1.02); GLOMERULAR FILTRATION RATE > 60.0 (>60); GLUCOSE, FASTING 111 MG/DL (70-105); POTASSIUM SERUM 3.6 MEQ/L (3.5-5.1); SODIUM LEVEL 138 MEQ/L (136-145); TOTAL PROTEIN 7.2 GM/DL (6.4-8.2)
== END 2017-05-05 13:53 | disposition home or self-care (01) ==
LOC: M LDO 09:27
DX: O26.893 Other specified pregnancy related conditions, third trimester (principal); R05 Cough; R03.0 Elevated blood-pressure reading, without diagnosis of hypertension; Z3A.32 32 weeks gestation of pregnancy
CPT/HCPCS: 71045

== ENCOUNTER → 2017-05-18 | Outpatient (CLI) | payer BC | LOC: M RAD 13:04 | DX: O24.113 Pre-existing type 2 diabetes mellitus, in pregnancy, third trimester (principal); O10.013 Pre-existing essential hypertension complicating pregnancy, third trimester; Z3A.33 33 weeks gestation of pregnancy | CPT/HCPCS: 76819 ==

== ENCOUNTER 2017-05-20 16:09 | Inpatient (IN) | payer BC ==
[2017-05-20] MEDS ORDERED: GLUCOSE 4 GM CHEW TABLET PO (19:30)
[2017-05-20] MEDS ORDERED: DEXTROSE 50% 50 ML SYRINGE IV (19:30)
[2017-05-20] MEDS ORDERED: GLUCAGON FOR INJ 1 MG VIAL (J1610) SC (19:30)
[2017-05-20 20:53] LABS: HEMATOCRIT 35.4 % (36.0-47.0); HEMOGLOBIN 12.1 g/dl (12.0-16.0); MEAN CORPUSCULAR HEMOGLOBIN 31.2 pg (27.0-33.0); MEAN CORPUSCULAR HGB CONC 34.2 g/dl (32.0-36.5); MEAN CORPUSCULAR VOLUME 91.2 fl (80.0-96.0); PLATELET COUNT, AUTOMATED 279 10^3/uL (150-450); RED BLOOD COUNT 3.88 10^6/uL (4.00-5.40); RED CELL DISTRIBUTION WIDTH 12.3 % (11.5-14.5)
[2017-05-20] MEDS: LR 1,000 ML IV (20:59)
[2017-05-20] MEDS: BETAMETHASONE SOLUSPAN 6MG/ML INJ 5ML (J0702) IM (21:00)
[2017-05-20 21:10] LABS: INR 0.96; PROTHROMBIN TIME 12.9 SECONDS (12.4-14.5)
[2017-05-20 21:11] LABS: PARTIAL THROMBOPLASTIN TIME 29.2 SECONDS (26.8-37.9)
[2017-05-20 21:15] LABS: FIBRINOGEN 491 MG/DL (221-452)
[2017-05-20 21:32] LABS: TOTAL PROTEIN,RANDOM URINE 65.3 MG/DL (0.0-12.0)
[2017-05-20 21:35] LABS: ALT/SGPT 12 U/L (12-78); AMPHETAMINES URINE REFLEX NEGATIVE (NEGATIVE); AST/SGOT 12 U/L (7-37); BARBITURATES URINE REFLEX NEGATIVE (NEGATIVE); BENZODIAZEPINES URINE REFLEX NEGATIVE (NEGATIVE); BILIRUBIN,TOTAL 0.3 MG/DL (0.2-1.0); CANNABINOIDS URINE REFLEX NEGATIVE (NEGATIVE); COCAINE METABOLITE URINE REFLE NEGATIVE (NEGATIVE); CREATININE FOR GFR 0.45 MG/DL (0.55-1.02); GLOMERULAR FILTRATION RATE > 60.0 (>60); LDH LACTATE DEHYDROGENASE 153 U/L (84-246); METHADONE URINE REFLEX NEGATIVE (NEGATIVE); OPIATES URINE REFLEX NEGATIVE (NEGATIVE); PHENCYCLIDINE URINE REFLEX NEGATIVE (NEGATIVE); URIC ACID 2.1 MG/DL (2.6-6.0)
[2017-05-20] MEDS: FAMOTIDINE 20 MG TAB PO (21:49)
[2017-05-20] MEDS: metFORMIN (GLUCOPHAGE) 500 MG TAB PO (21:49)
[2017-05-20] MEDS: HumaLOG INSULIN (NovoLOG) PER UNIT SC (23:15)
[2017-05-20 23:16] LABS: BEDSIDE GLUCOSE 97 MG/DL (70-105)
[2017-05-20 23:16] LABS: BEDSIDE GLUCOSE 164 MG/DL (70-105)
[2017-05-21 01:07] LABS: BEDSIDE GLUCOSE 192 MG/DL (70-105)
[2017-05-21] MEDS: HumaLOG INSULIN (NovoLOG) PER UNIT SC ×8 (01:08→22:35)
[2017-05-21 05:26] LABS: BEDSIDE GLUCOSE 155 MG/DL (70-105)
[2017-05-21] MEDS: PRENATAL VITAMINS CHEWABLE TABLET PO (09:59)
[2017-05-21] MEDS: FAMOTIDINE 20 MG TAB PO ×2 (10:00→21:00)
[2017-05-21] MEDS: metFORMIN (GLUCOPHAGE) 500 MG TAB PO ×2 (10:00→21:00)
[2017-05-21] MEDS: VITAMIN D 50,000 UNITS CAPSULE (ERGOCALCIFEROL 1.25MG) PO (10:00)
[2017-05-21] MEDS: DULoxetine 30 MG CAP (CYMBALTA) PO (10:01)
[2017-05-21] MEDS: LORATADINE 10 MG TAB PO (10:01)
[2017-05-21] MEDS: HYDROXYCHLOROQUINE 200 MG TAB PO (10:02)
[2017-05-21 10:15] LABS: BEDSIDE GLUCOSE 112 MG/DL (70-105)
[2017-05-21 10:15] LABS: BEDSIDE GLUCOSE 142 MG/DL (70-105)
[2017-05-21] MEDS: LR 1,000 ML IV ×3 (10:32→19:19)
[2017-05-21 12:33] LABS: APPEARANCE, URINE CLEAR (CLEAR); BACTERIA, URINE AUTO NEGATIVE (NEGATIVE); BILIRUBIN, URINE AUTO NEGATIVE (NEGATIVE); BLOOD, URINE BLOOD 1+ (NEGATIVE); COLOR, URINE YELLOW (YELLOW); GLUCOSE, URINE (UA) AUTO 2+ mg/dL (NEGATIVE); KETONE, URINE AUTO TRACE mg/dL (NEGATIVE); LEUKOCYTE ESTERASE, URINE AUTO NEGATIVE (NEGATIVE); NITRITE, URINE AUTO NEGATIVE (NEGATIVE); PROTEIN, URINE AUTO 1+ mg/dL (NEGATIVE); RBC, URINE AUTO 0 /HPF (0-3); SPECIFIC GRAVITY URINE AUTO 1.005 (1.002-1.035); SQUAMOUS EPITHELIAL CELL UR AU 1 /HPF (0-6); UROBILINOGEN, URINE AUTO 0.2 mg/dL (0.0-2.0); WBC, URINE AUTO 1 /HPF (0-3)
[2017-05-21 14:32] LABS: BEDSIDE GLUCOSE 78 MG/DL (70-105)
[2017-05-21 14:32] LABS: BEDSIDE GLUCOSE 94 MG/DL (70-105)
[2017-05-21 16:45] LABS: BEDSIDE GLUCOSE 100 MG/DL (70-105)
[2017-05-21 18:32] LABS: BEDSIDE GLUCOSE 138 MG/DL (70-105)
[2017-05-21] MEDS: BETAMETHASONE SOLUSPAN 6MG/ML INJ 5ML (J0702) IM (21:00)
[2017-05-21] MEDS ORDERED: OXYTOCIN DRIP 30 UNITS in APPROPRIATE DILUENT 1 EA IV (21:00)
[2017-05-21 22:37] LABS: BEDSIDE GLUCOSE 120 MG/DL (70-105)
[2017-05-21 22:37] LABS: BEDSIDE GLUCOSE 99 MG/DL (70-105)
[2017-05-22] MEDS: HumaLOG INSULIN (NovoLOG) PER UNIT SC ×5 (00:35→20:51)
[2017-05-22 00:37] LABS: BEDSIDE GLUCOSE 134 MG/DL (70-105)
[2017-05-22] MEDS: LR 1,000 ML IV ×2 (03:19→11:19)
[2017-05-22 04:31] LABS: BEDSIDE GLUCOSE 133 MG/DL (70-105)
[2017-05-22 08:23] LABS: BEDSIDE GLUCOSE 107 MG/DL (70-105)
[2017-05-22] MEDS: LORATADINE 10 MG TAB PO (08:28)
[2017-05-22] MEDS: DULoxetine 30 MG CAP (CYMBALTA) PO (08:28)
[2017-05-22] MEDS: HYDROXYCHLOROQUINE 200 MG TAB PO (08:28)
[2017-05-22] MEDS: metFORMIN (GLUCOPHAGE) 500 MG TAB PO ×2 (08:28→20:50)
[2017-05-22] MEDS: PRENATAL VITAMINS CHEWABLE TABLET PO (08:28)
[2017-05-22] MEDS: FAMOTIDINE 20 MG TAB PO ×2 (09:00→20:50)
[2017-05-22] MEDS: PROMETHAZINE INJ 25 MG/ML VIAL (J2550) IV (09:15)
[2017-05-22] MEDS: BUTORPHANOL 2 MG/ML INJ (J0595) IV (09:27)
[2017-05-22] MEDS: LACTATED RINGER'S 1000 ML IV (09:37)
[2017-05-22 11:50] LABS: BEDSIDE GLUCOSE 81 MG/DL (70-105)
[2017-05-22 11:50] LABS: BEDSIDE GLUCOSE 46 MG/DL (70-105)
[2017-05-22 14:34] LABS: BEDSIDE GLUCOSE 67 MG/DL (70-105)
[2017-05-22 14:34] LABS: BEDSIDE GLUCOSE 54 MG/DL (70-105)
[2017-05-22 16:33] LABS: BEDSIDE GLUCOSE 69 MG/DL (70-105)
[2017-05-22] MEDS: PENICILLIN G POTASSIUM IV 5 MU in D5W MINI-BAG PLUS 100 ML IV (17:23)
[2017-05-22 18:30] LABS: BEDSIDE GLUCOSE 93 MG/DL (70-105)
[2017-05-22 21:27] LABS: BEDSIDE GLUCOSE 124 MG/DL (70-105)
[2017-05-22] MEDS: PENICILLIN G POTASSIUM IV 2.5 MU in APPROPRIATE DILUENT 1 EA IV (22:22)
[2017-05-22 22:36] LABS: BEDSIDE GLUCOSE 89 MG/DL (70-105)
[2017-05-23] MEDS: BUTORPHANOL 2 MG/ML INJ (J0595) IV (01:15)
[2017-05-23] MEDS: PROMETHAZINE INJ 25 MG/ML VIAL (J2550) IV (01:15)
[2017-05-23 01:35] LABS: HEMATOCRIT 35.4 % (36.0-47.0); HEMOGLOBIN 12.2 g/dl (12.0-16.0); MEAN CORPUSCULAR HEMOGLOBIN 31.5 pg (27.0-33.0); MEAN CORPUSCULAR HGB CONC 34.5 g/dl (32.0-36.5); MEAN CORPUSCULAR VOLUME 91.5 fl (80.0-96.0); PLATELET COUNT, AUTOMATED 299 10^3/uL (150-450); RED BLOOD COUNT 3.87 10^6/uL (4.00-5.40); RED CELL DISTRIBUTION WIDTH 12.5 % (11.5-14.5); WHITE BLOOD COUNT 13.2 10^3/uL (4.0-10.0)
[2017-05-23] MEDS ORDERED: FENTANYL 2MCG/ML ROPIVACAINE 0.2% IN 0.9% NACL 200ML IVBAG As Ordered (01:46)
[2017-05-23] MEDS: PENICILLIN G POTASSIUM IV 2.5 MU in APPROPRIATE DILUENT 1 EA IV ×2 (03:16→07:34)
[2017-05-23] MEDS: HumaLOG INSULIN (NovoLOG) PER UNIT SC (03:32)
[2017-05-23 03:36] LABS: BEDSIDE GLUCOSE 98 MG/DL (70-105)
[2017-05-23] MEDS ORDERED: ePHEDrine INJ 50 MG/ML VIAL IV (04:00)
[2017-05-23] MEDS ORDERED: REFRIGERATOR IV KEYS XX (04:00)
[2017-05-23] MEDS ORDERED: FENTANYL/ROPIVACAINE/NACL BAG 200 ML EPIDURAL (04:00)
[2017-05-23] MEDS ORDERED: diphenhydrAMINE INJ 50MG/ML VIAL (J1200) IV (04:00)
[2017-05-23] MEDS ORDERED: NALOXONE INJ 0.4 MG/1 ML VIAL (J2310) IV (04:00)
[2017-05-23] MEDS ORDERED: LACTATED RINGER'S 1000 ML IV (04:00)
[2017-05-23] MEDS ORDERED: EPIDURAL COMMENT XX (04:00)
[2017-05-23] MEDS ORDERED: ONDANSETRON 4MG/2ML VIAL (J2405) IV ×2 (04:00→10:45)
[2017-05-23] MEDS ORDERED: EPIDURAL/PCA KEYS XX (04:00)
[2017-05-23] MEDS ORDERED: OXYTOCIN 30 UNITS IN 0.9% NaCl 500ML IV BAG (J2590) As Ordered (07:15)
[2017-05-23] MEDS: LR 1,000 ML IV ×2 (09:10→12:17)
[2017-05-23 10:38] LABS: CORD GAS HCO3 V 24.8 MEQ/L; CORD GAS O2 SAT V 60.7 %; CORD GAS PCO2 V 60.4 mmHg; CORD GAS PH V 7.232 UNITS; CORD GAS PO2 V 28.5 mmHg; CORD GAS SBC V 20.2 MEQ/L; CORD GAS TCO2 V 26.7 MEQ/L
[2017-05-23 10:45] LABS: CORD GAS ABE A -8.6; CORD GAS HCO3 A 19.7 MEQ/L; CORD GAS O2 SAT A 85.6 %; CORD GAS PCO2 A 51.2 mmHg; CORD GAS PH A 7.204 UNITS; CORD GAS PO2 A 45.1 mmHg; CORD GAS SBC A 17.4 MEQ/L; CORD GAS TCO2 A 21.3 MEQ/L
[2017-05-23] MEDS ORDERED: PROMETHAZINE 25 MG TAB PO (10:45)
[2017-05-23] MEDS ORDERED: IBUPROFEN 800 MG TAB PO (10:45)
[2017-05-23] MEDS ORDERED: ACETAMINOPHEN 500 MG TAB PO (10:45)
[2017-05-23] MEDS ORDERED: DOCUSATE SODIUM 100 MG CAP PO (10:45)
[2017-05-23] MEDS ORDERED: MEASLES,MUMPS,RUBELLA VACCINE INJ (MMR-II) (90707) SC (10:45)
[2017-05-23] MEDS ORDERED: DIBUCAINE 1% OINTMENT 30GM TOP (10:45)
[2017-05-23] MEDS ORDERED: RHOGAM 300 MCG (1500 IU) INJ (J2790) IM (10:45)
[2017-05-23] MEDS: FAMOTIDINE 20 MG TAB PO ×2 (11:41→21:12)
[2017-05-23] MEDS: DULoxetine 30 MG CAP (CYMBALTA) PO (11:41)
[2017-05-23] MEDS: metFORMIN (GLUCOPHAGE) 500 MG TAB PO ×2 (11:43→21:12)
[2017-05-23] MEDS: LORATADINE 10 MG TAB PO (11:44)
[2017-05-23] MEDS: HYDROXYCHLOROQUINE 200 MG TAB PO (11:46)
[2017-05-23] MEDS: OXYTOCIN DRIP 30 UNITS in APPROPRIATE DILUENT 1 EA IV (12:17)
[2017-05-23] MEDS: PRENATAL VITAMINS CHEWABLE TABLET PO (12:17)
[2017-05-23] MEDS: ADACEL/BOOSTRIX VACCINE (DIPHTH/PERTUSS/ACELL/TETANUS)0.5ML SYR (90715) IM (14:00)
[2017-05-24] MEDS: PRENATAL VITAMINS CHEWABLE TABLET PO (09:50)
[2017-05-24] MEDS: metFORMIN (GLUCOPHAGE) 500 MG TAB PO ×2 (09:51→22:03)
[2017-05-24] MEDS: DULoxetine 30 MG CAP (CYMBALTA) PO (09:51)
[2017-05-24] MEDS: LORATADINE 10 MG TAB PO (09:51)
[2017-05-24] MEDS: HYDROXYCHLOROQUINE 200 MG TAB PO (09:52)
[2017-05-24] MEDS: FAMOTIDINE 20 MG TAB PO ×2 (09:52→22:04)
[2017-05-25] MEDS: FAMOTIDINE 20 MG TAB PO (09:31)
[2017-05-25] MEDS: HYDROXYCHLOROQUINE 200 MG TAB PO (09:31)
[2017-05-25] MEDS: DULoxetine 30 MG CAP (CYMBALTA) PO (09:31)
[2017-05-25] MEDS: LORATADINE 10 MG TAB PO (09:32)
[2017-05-25] MEDS: metFORMIN (GLUCOPHAGE) 500 MG TAB PO (09:32)
[2017-05-25] MEDS: PRENATAL VITAMINS CHEWABLE TABLET PO (09:32)
== END 2017-05-25 13:30 | disposition home or self-care (01) | DRG 560 ==
LOC: M LDO 16:09 → M LDI 20:06 → M OBS 05-23 12:40
PROC: 3E033VJ Introduction of Other Hormone into Peripheral Vein, Percutaneous Approach (ICD-10-PCS; 2017-05-20)
PROC: 10E0XZZ Delivery of Products of Conception, External Approach (ICD-10-PCS; principal; 2017-05-23)
PROC: 0HQ9XZZ Repair Perineum Skin, External Approach (ICD-10-PCS; 2017-05-23)
DX: O45.8X3 Other premature separation of placenta, third trimester (principal); O13.4 Gestational [pregnancy-induced] hypertension without significant proteinuria, complicating childbirth; O41.03X0 Oligohydramnios, third trimester, not applicable or unspecified; O99.344 Other mental disorders complicating childbirth; O24.425 Gestational diabetes mellitus in childbirth, controlled by oral hypoglycemic drugs; Z37.0 Single live birth; Z3A.34 34 weeks gestation of pregnancy; F32.9 Major depressive disorder, single episode, unspecified; Z91.19 Patient's noncompliance with other medical treatment and regimen; O70.0 First degree perineal laceration during delivery

== ENCOUNTER → 2017-07-14 | Outpatient (REF) | payer BC ==
[2017-07-14 19:56] LABS: TOTAL PROTEIN,RANDOM URINE 149.9 MG/DL (0.0-12.0)
== END ==
LOC: M LAB REF 16:54
DX: M32.10 Systemic lupus erythematosus, organ or system involvement unspecified (principal)
CPT/HCPCS: 84156

== ENCOUNTER → 2017-08-12 | Outpatient (REF) | payer BC ==
[2017-08-12 13:57] LABS: COMPLEMENT C3 175 MG/DL (90-180)
[2017-08-12 13:57] LABS: COMPLEMENT C4 34.8 MG/DL (10-40)
[2017-08-12 14:35] LABS: ERYTHROCYTE SEDIMENTATION RATE 43 mm/hr (0-20)
== END ==
LOC: M LAB REF 13:12
DX: M32.10 Systemic lupus erythematosus, organ or system involvement unspecified (principal)
CPT/HCPCS: 86160

== ENCOUNTER → 2017-12-13 | Outpatient (REF) | payer BC | LOC: M LAB REF 13:06 | DX: M32.10 Systemic lupus erythematosus, organ or system involvement unspecified (principal) | CPT/HCPCS: 82570 ==

== ENCOUNTER → 2018-01-26 | Outpatient (REF) | payer BC | LOC: M LAB REF 14:09 | DX: Z12.4 Encounter for screening for malignant neoplasm of cervix (principal) | CPT/HCPCS: G0123 ==

== ENCOUNTER → 2018-01-27 | Outpatient (CLI) | payer BC | LOC: M RAD 16:10 | DX: R10.2 Pelvic and perineal pain (principal) | CPT/HCPCS: 76856 ==

== ENCOUNTER → 2018-01-31 | Outpatient (REF) | payer BC ==
[2018-01-31 22:09] LABS: APPEARANCE, URINE CLOUDY (CLEAR); BACTERIA, URINE AUTO 3+ (NEGATIVE); BILIRUBIN, URINE AUTO NEGATIVE (NEGATIVE); BLOOD, URINE BLOOD NEGATIVE (NEGATIVE); COLOR, URINE AMBER (YELLOW); GLUCOSE, URINE (UA) AUTO 2+ mg/dL (NEGATIVE); KETONE, URINE AUTO TRACE mg/dL (NEGATIVE); LEUKOCYTE ESTERASE, URINE AUTO 2+ (NEGATIVE); NITRITE, URINE AUTO NEGATIVE (NEGATIVE); PROTEIN, URINE AUTO 3+ mg/dL (NEGATIVE); RBC, URINE AUTO 2 /HPF (0-3); SPECIFIC GRAVITY URINE AUTO 1.023 (1.002-1.035); SQUAMOUS EPITHELIAL CELL UR AU 6 /HPF (0-6); UROBILINOGEN, URINE AUTO 0.2 mg/dL (0.0-2.0); WBC, URINE AUTO 8 /HPF (0-3)
== END ==
LOC: M LAB REF 12:54
DX: N39.0 Urinary tract infection, site not specified (principal)
CPT/HCPCS: 81001

== ENCOUNTER 2018-02-24 12:42 | Emergency (ER) | payer OTHER, BC ==
[2018-02-24] MEDS: NORCO, ANEXSIA 5/325MG TABLET (HYDROcodone/ACETAMINOPHEN) PO (13:44)
== END 2018-02-24 13:54 | disposition home or self-care (01) ==
LOC: M ED 12:42
DX: S61.111A Laceration without foreign body of right thumb with damage to nail, initial encounter (principal); W23.0XXA Caught, crushed, jammed, or pinched between moving objects, initial encounter; Y92.098 Other place in other non-institutional residence as the place of occurrence of the external cause; J45.909 Unspecified asthma, uncomplicated; K21.9 Gastro-esophageal reflux disease without esophagitis; G47.33 Obstructive sleep apnea (adult) (pediatric); K58.9 Irritable bowel syndrome, unspecified; F32.9 Major depressive disorder, single episode, unspecified; N28.9 Disorder of kidney and ureter, unspecified; E11.9 Type 2 diabetes mellitus without complications; Z88.1 Allergy status to other antibiotic agents; Z88.5 Allergy status to narcotic agent; Z88.2 Allergy status to sulfonamides; Z91.048 Other nonmedicinal substance allergy status; Z79.899 Other long term (current) drug therapy; Z79.84 Long term (current) use of oral hypoglycemic drugs
CPT/HCPCS: 73140

== ENCOUNTER → 2018-04-27 | Outpatient (CLI) | payer BC ==
[~2018-04-27] MED LIST changes: +AUGM500T34 PO; +DULO30CA PO; +IBUP-1114 PO; +KEFL500C17 PO; +MAPA500T2 PO; +PRENTAB9 PO; +RANI75TA15 PO; +VITA100067 PO; -VITA1CAP40 PO; +VITA50005 PO; +ZOFR4TAB14 PO; -ZOFR4TAB3 PO
--- NOTE | 2018-04-27 10:34 | REP ---
HIDA SCAN WITH GALLBLADDER EJECTION FRACTION: Following the intravenous administration of 6.6 millicuries technetium 99m mebrofenin, multiple images of the right upper quadrant performed every 5 minutes for a period of 1 hour. Gallbladder is visualized at 10 minutes post injection. There is biliary to bowel transit at 15 minutes post injection. There is no evidence of cholecystitis. At the one-hour igor, 8 ounces of Ensure Enlive was ingested and further imaging performed for 1 hour. Gallbladder activity is measured and the gallbladder ejection is calculated to be 70%, which is normal. IMPRESSION: Normal gallbladder ejection fraction of 70%. Electronically Signed by Miguel Stewart MD 04/27/2018 11:47 A
== END ==
LOC: M RAD 07:34
PROVIDERS: ATTEND Nurse Practitioner Family
DX: R10.9 Unspecified abdominal pain (principal)
CPT/HCPCS: 78227; A9537; J2805

== ENCOUNTER → 2018-06-12 | Outpatient (REF) | payer BC ==
[2018-06-12 14:23] LABS: CHOLESTEROL RISK RATIO 2.942 (<5)
[2018-06-12 14:31] LABS: CREATININE 24 HOUR, URINE 1409.4 MG/24HR (600-1800); TOTAL PROTEIN 24 HOUR URINE 1436.1 MG/24HR (50-150); URINE TOTAL PROTEIN 177.3 MG/DL (0-12)
== END ==
LOC: M LAB REF 13:17
PROVIDERS: ATTEND Internal Medicine Nephrology
DX: M32.10 Systemic lupus erythematosus, organ or system involvement unspecified (principal); R80.9 Proteinuria, unspecified

== ENCOUNTER → 2018-06-14 | Outpatient (REF) | payer BC ==
[2018-06-14 13:28] LABS: PROTHROMBIN TIME 13.3 SECONDS (12.1-14.4)
[2018-06-17 00:08] LABS: ANCA-ATYPICAL <1:20 titer (Neg:<1:20); ANTI DOUBLE STRAND-DNA AB 2 IU/mL (0-9); ANTINUCLEAR ANTIBODIES DIRECT Positive (Negative); CYTOPLASMIC NEUTROP AB ANCA-C <1:20 titer (Neg:<1:20); PERINUCLEAR AB ANCA-P <1:20 titer (Neg:<1:20); RNP ANTIBODIES <0.2 AI (0.0-0.9); SJOGREN'S ANTI SS-A <0.2 AI (0.0-0.9); SJOGREN'S ANTI SS-B 1.4 AI (0.0-0.9); SMITH ANTIBODIES <0.2 AI (0.0-0.9)
== END ==
LOC: M LAB REF 12:45
PROVIDERS: ATTEND Internal Medicine Nephrology
DX: R80.9 Proteinuria, unspecified (principal)

== ENCOUNTER → 2018-06-29 | Outpatient (CLI) | payer BC ==
[~2018-06-29] MED LIST changes: +LIDOCAINE 1% MDV 20ML VIAL As Ordered ONE
--- NOTE | 2018-06-29 13:55 | RO ---
DATE OF PROCEDURE: 06/29/2018 NAME OF THE PROCEDURE: Ultrasound-guided left renal biopsy. INDICATION OF THE PROCEDURE: Persistent proteinuria, history of SLE and diabetes mellitus type 2 with morbid obesity. PREPROCEDURE DIAGNOSIS: Proteinuria. POSTPROCEDURE DIAGNOSIS: Proteinuria. ANESTHESIA: 1% lidocaine local anesthesia was used. CONSENT: Informed and written consent was obtained and placed in the chart before the biopsy was done. SURGEON: Mehrdad Wallis MD BOAT ASSEMBLER: DESCRIPTION OF PROCEDURE: The patient was lying down on the table on prone position comfortably, and the procedure had already been explained to her. Both kidneys were localized, and left kidney was marked for biopsy. The patient was prepped and draped in sterile fashion. Proper infection control precautions were taken. 10 mL of 1% lidocaine was injected initially with a 25-gauge needle and later on with a long spinal needle all the way up to the renal capsule. Later on, 17-gauge introducer needle was inserted under ultrasound guidance all the way up to the renal capsule and through the introducer needed, an 18-gauge kidney biopsy needle was inserted. Three core biopsy specimens were obtained. Introducer needle was removed. Pressure was applied at the area. Specimens were placed in three different containers and sent to pathology laboratory. Postprocedure kidney was looked up with ultrasound. No hematoma was noted. COMPLICATIONS OF THE PROCEDURE: None. BLOOD LOSS: None. POSTBIOPSY ORDERS: The patient was sent to recovery room. VITAL SIGNS: Will be checked every 15 minutes for 2 hours and then every 30 minutes for next 2 hours. Complete bedrest for 4 hours with bedside commode privileges. MD to be called for hematuria or systolic blood pressure less than 100. The patient to be discharged home if stable in the next 4 hours. ANA
== END ==
LOC: M RADPRO 11:16
PROVIDERS: ATTEND Internal Medicine Nephrology
DX: R80.9 Proteinuria, unspecified (principal); M32.10 Systemic lupus erythematosus, organ or system involvement unspecified; E11.22 Type 2 diabetes mellitus with diabetic chronic kidney disease; N18.1 Chronic kidney disease, stage 1; N28.81 Hypertrophy of kidney; N26.9 Renal sclerosis, unspecified; Z79.899 Other long term (current) drug therapy

== ENCOUNTER → 2018-07-11 | Outpatient (CLI) | payer BC ==
[~2018-07-11] MED LIST changes: -LIDOCAINE 1% MDV 20ML VIAL As Ordered ONE
--- NOTE | 2018-07-12 04:06 | REP ---
Clinical: Pneumonia . Comparison: 05/05/2017 . Technique: PA and lateral. Findings: The mediastinum and cardiac silhouette are normal. The lung davis are clear and without acute consolidation, effusion, or pneumothorax. The skeletal structures are intact and normal. Impression: 1. No acute cardiopulmonary process. Electronically Signed by Isai Novoa MD 07/12/2018 03:58 A
== END ==
LOC: M RAD 14:07
PROVIDERS: ATTEND Family Medicine
DX: J18.9 Pneumonia, unspecified organism (principal)

== ENCOUNTER → 2018-07-14 | Outpatient (REF) | payer BC ==
[2018-07-14 17:36] LABS: FREE T4 1.07 NG/DL (0.76-1.46); THYROID STIMULATING HORMONE 1.22 uIU/ML (0.358-3.740)
[2018-07-14 18:15] LABS: HEMOGLOBIN A1c 6.4 %
== END ==
LOC: M SFHCPLAZ 15:31
PROVIDERS: ATTEND Family Medicine
DX: E04.1 Nontoxic single thyroid nodule (principal); E11.65 Type 2 diabetes mellitus with hyperglycemia

== ENCOUNTER → 2018-07-25 | Outpatient (CLI) | payer BC ==
--- NOTE | 2018-07-25 15:02 | REP ---
THYROID ULTRASOUND: Real-time sonographic evaluation of the thyroid performed. Comparison is made with a prior study 07/23/2016. Right lobe measures 4.4 x 1.6 x 1.1 cm and left lobe 3.7 x 1.7 x 1.3 cm. Previously solid-appearing nodule in the right lobe is no longer visualized. There is a tiny 2 mm cyst in the right lobe. In the left lobe, there is a solid-appearing isoechoic nodule measuring 1.1 x 0.9 x 0.9 cm. This has minimally increased in size when compared to a prior study when it measured 9 x 8 x 7 mm. No other cystis or solid nodule is seen. IMPRESSION: Solid-appearing isoechoic nodule in the left lobe of the thyroid has only minimally increased in size since the prior study of 2016 by approximately 2 mm. Recommend followup study in 1 year. Electronically Signed by Miguel Stewart MD 07/26/2018 11:01 A
== END ==
LOC: M RAD 10:52
PROVIDERS: ATTEND Family Medicine
DX: E11.65 Type 2 diabetes mellitus with hyperglycemia (principal); E04.1 Nontoxic single thyroid nodule

== ENCOUNTER 2019-01-10 06:23 | Day surgery (SDC) | payer BC ==
[~2019-01-10] VITALS: Ht 165.1 cm; Wt 90.7 kg
[~2019-01-10 06:23] MED LIST changes: +ATOR1TAB19 PO; +CHOL100029 PO; +DULO1CAP5 PO; -DULO30CA PO; +DULO30CA9 PO; +L-LY500T9 PO; +LIDOCAINE 1% MDV 20ML VIAL SQ PRN; +LISI-542 PO; +LORA-674 PO; -OMEP20CA3 PO; +OMEP20CA4 PO; +VITA500045 PO
[2019-01-10 06:59] LABS: HEMATOCRIT 41.3 % (36.0-47.0); HEMOGLOBIN 14.1 g/dl (12.0-15.5); MEAN CORPUSCULAR HEMOGLOBIN 31.5 pg (27.0-33.0); MEAN CORPUSCULAR HGB CONC 34.1 g/dl (32.0-36.5); MEAN CORPUSCULAR VOLUME 92.4 fl (80.0-96.0); PLATELET COUNT, AUTOMATED 275 10^3/uL (150-450); RED BLOOD COUNT 4.47 10^6/uL (4.00-5.40); WHITE BLOOD COUNT 7.2 10^3/uL (4.0-10.0)
[2019-01-10] MEDS ORDERED: LR 1,000 ML IV ONE (07:00)
[2019-01-10] MEDS ORDERED: METF500T13 (07:17)
[2019-01-10] MEDS ORDERED: VITA1MIS PO (07:19)
[2019-01-10 07:31] LABS: HCG, SERUM QUALITATIVE NEGATIVE (NEGATIVE)
[2019-01-10] MEDS ORDERED: BUPIVACAINE HCL 0.25% 30 ML VIAL As Ordered ONE (08:12)
[2019-01-10] MEDS ORDERED: LIDOCAINE 2% INJ 100 MG/5 ML SDV (FOR ANES.) As Ordered ONE (09:00)
[2019-01-10] MEDS ORDERED: HYDROmorphone HCL 2 MG/ML 1ML VIAL (J1170) As Ordered ONE (09:00)
[2019-01-10] MEDS ORDERED: ACETAMINOPHEN 1000MG 100ML IV BTL (OFIRMEV) (J0131 PER 10MG) As Ordered ONE (09:00)
[2019-01-10] MEDS ORDERED: PROPOFOL 200 MG/20 ML VIAL As Ordered ONE (09:00)
[2019-01-10] MEDS ORDERED: MIDAZOLAM INJ 2 MG/2 ML VIAL (J2250) As Ordered ONE (09:00)
[2019-01-10] MEDS ORDERED: fentaNYL 100 MCG/2 ML INJECTION (J3010) As Ordered ONE (09:00)
[2019-01-10] MEDS ORDERED: dexameTHASONE 4 MG/ML 1ML VIAL (J1100) As Ordered ONE (09:00)
[2019-01-10] MEDS ORDERED: ROCURONIUM BROMIDE 50 MG/5 ML VIAL As Ordered ONE ×2 (09:00→09:10)
[2019-01-10] MEDS ORDERED: ONDANSETRON 4MG/2ML VIAL (J2405) As Ordered ONE (09:00)
[2019-01-10] MEDS ORDERED: SUGAMMADEX SODIUM 500 MG/5 ML VIAL (BRIDION) As Ordered ONE (09:01)
[2019-01-10] MEDS ORDERED: VASOPRESSIN INJ 20 UNITS/ML VIAL As Ordered ONE (09:17)
[2019-01-10] MEDS ORDERED: GLYCOPYRROLATE INJ 0.2 MG/ML 2 ML VIAL As Ordered ONE (09:18)
[2019-01-10] MEDS ORDERED: ONDA4TAB5 PO (10:26)
[2019-01-10] MEDS ORDERED: OXYC1TAB23 PO (10:28)
[2019-01-10] MEDS ORDERED: fentaNYL 100 MCG/2 ML INJECTION (J3010) IV PRN (10:45)
[2019-01-10] MEDS ORDERED: LR 1,000 ML IV SCH ×2 (10:45)
[2019-01-10] MEDS ORDERED: oxyCODONE 5MG TAB PO PRN (10:45)
[2019-01-10] MEDS ORDERED: ONDANSETRON 4MG/2ML VIAL (J2405) IV PRN (10:45)
--- NOTE | 2019-01-10 11:31 | RO ---
DATE OF PROCEDURE: 01/10/2019 PREOPERATIVE DIAGNOSES: 1. Satisfied parity. 2. Chronic pelvic pain, endometriosis. POSTPROCEDURE DIAGNOSES: 1. Satisfied parity. 2. Chronic pelvic pain, endometriosis (stage 2 endometriosis). PROCEDURES PERFORMED: 1. Laparoscopic lysis of adhesion and fulguration of endometriosis, peritoneal biopsy. 2. Bilateral salpingectomy. SURGEON: Chito Kat DO INDUSTRIAL TRUCK DRIVER: None. ANESTHESIA: General endotracheal. SPECIMENS SENT TO PATHOLOGY: 1. Bilateral fallopian tubes. 2. Peritoneal biopsy (right uterosacral ligament). ESTIMATED BLOOD LOSS: 10 mL fluids. FLUIDS REPLACED: 1200 mL lactated Ringer's. DRAINS: Mary catheter. URINE OUTPUT: 1000 mL. COMPLICATIONS: None. PREOPERATIVE ANTIBIOTICS: None indicated. INDICATION: The patient is a 28-year-old . She has a history of chronic pelvic pain and endometriosis. She also has a history of a complicated obstetric course during her last . She is of 100% satisfied parity. She is requesting a laparoscopy for both evaluation and possible treatment of endometriosis as well as a bilateral salpingectomy for her desired permanent sterilization. PROCEDURE: The patient was counseled and consented on risks, benefits, indications, and alternatives procedure. Informed consent was obtained. She was taken to the operating room with an IV running and placed on operating table in dorsal supine position. General anesthesia was administered and the airway was secured without any difficulty. She was then placed in low lithotomy position. She was prepared and draped in normal sterile fashion. A time-out was performed per protocol. Attention was first turned to the pelvis. Mary catheter was placed under sterile conditions. A sterile speculum was placed with good visualization of the cervix. The anterior lip of the cervix was grasped with single-tooth tenaculum, downward traction was applied. The uterus sounded to 8 cm. The Zumi uterine manipulator was placed into the uterus without any difficulty. The single-tooth tenaculum was removed. Tenaculum sites were noted be hemostatic. The sterile speculum was removed. A glove switch was performed. Attention was turned to the abdomen. 0.25 percent Marcaine was injected into the umbilicus. 5 mm umbilical incision was made with 11 blade. A Veress needle was placed into the intraperitoneal cavity. Intraperitoneal placement was confirmed. The abdomen was insufflated with 2 liters of gas. The Veress needle was removed. The size 5 mm XL laparoscopic trocar was placed through this incision into the intraperitoneal cavity. Intraperitoneal placement was confirmed. No incidental bleeding or injury was noted. The patient was then placed in steep Trendelenburg. Two additional laparoscopic port sites were made through 5 mm incision on the left side of her abdomen. The XL trocars were placed under direct visualization without any difficulty. Attention was first turned to the left fallopian tube. The left fallopian tube was followed out to the fimbriated end and grasped. The underlying mesosalpinx was sequentially clamped, coagulated and transected with the 5 mm LigaSure device until the level of the cornu was reached. At the level of cornu, the fallopian tube was clamped, coagulated and transected thus amputating fallopian tube and the fallopian tube was removed through the cannula without any difficulty. Attention was then turned to the right fallopian tube. The right fallopian tube was followed out to the fimbriated end and grasped and elevated. The underlying mesosalpinx / broad ligament was sequentially clamped, coagulated and transected to the level of cornu. At the level of cornu, the right fallopian tube was clamped, coagulated, and transected thus amputating the right fallopian tube. The right fallopian tube was brought through the cannula without any difficulty. Both of the specimens were sent to pathology for permanent section. After removal of the fallopian tubes, attention was turned to the endometriotic implants that were identified on the right uterosacral ligament. This area was biopsied with a laparoscopic biopsy forceps and then fulgurated with a spatula. This area was noted to be well away from the right ureter. The right ureter could be seen during this entire process and was noted to not be part of the biopsy or fulguration. The amy ovarian adhesions were reduced with the LigaSure device, thus freeing the ovaries from the omentum / bowel. There were no other adhesions noted but this does confirm her diagnosis of chronic pelvic pain due to endometriosis. Excellent hemostasis was noted throughout the pelvis. The peritoneal biopsy was sent separately for permanent section. The patient was taken out of Trendelenburg as the gas was released from the abdomen. Once the gas was released from the abdomen, the cannulas were removed. The skin incisions were then closed with 4-0 Monocryl in subcuticular fashion and reinforced with Dermabond. I turned my attention back to the pelvis. Mary catheter was removed. The Zumi uterine manipulator was removed. The cervix was noted to be hemostatic. Sponge, lap, needle and sponge counts were all correct per protocol. The patient was taken to the postanesthesia care unit (PACU) in good and stable condition. She tolerated the entire procedure very well. ANA
[2019-01-10 12:20] VITALS: BP 120/68
== END 2019-01-10 13:18 | disposition home or self-care (01) ==
LOC: M SDC 06:23
PROVIDERS: ATTEND Obstetrics & Gynecology
DX: Z30.2 Encounter for sterilization (principal); N80.0 Endometriosis of uterus; E11.9 Type 2 diabetes mellitus without complications; G47.30 Sleep apnea, unspecified; K58.8 Other irritable bowel syndrome; M32.10 Systemic lupus erythematosus, organ or system involvement unspecified; E78.5 Hyperlipidemia, unspecified; E06.3 Autoimmune thyroiditis; Z88.5 Allergy status to narcotic agent; Z88.2 Allergy status to sulfonamides; Z79.899 Other long term (current) drug therapy; F32.9 Major depressive disorder, single episode, unspecified; Z88.1 Allergy status to other antibiotic agents; F41.9 Anxiety disorder, unspecified; K21.9 Gastro-esophageal reflux disease without esophagitis; Z79.84 Long term (current) use of oral hypoglycemic drugs
CPT/HCPCS: 36415; 58661; 84703; 85027; 86850; 86900; 86901; 88302; 88305; J0131; J1100; J1170; J2250; J2405; J3010

== ENCOUNTER → 2019-06-12 | Outpatient (REF) | payer BC ==
[~2019-06-12] MED LIST changes: -LIDOCAINE 1% MDV 20ML VIAL SQ PRN; +METF500T13; -MONT10TA2 PO; +MONT10TA4 PO; +OMEP1CAP73 PO; -OMEP20CA4 PO; +ONDA-83 PO; +OXYC1TAB23 PO; +VITA1MIS PO
[2019-06-12 11:17] LABS: HEMATOCRIT 39.1 % (36.0-47.0); HEMOGLOBIN 13.3 g/dl (12.0-15.5); MEAN CORPUSCULAR HEMOGLOBIN 31.6 pg (27.0-33.0); MEAN CORPUSCULAR VOLUME 92.9 fl (80.0-96.0); PLATELET COUNT, AUTOMATED 318 10^3/uL (150-450); RED BLOOD COUNT 4.21 10^6/uL (4.00-5.40); WHITE BLOOD COUNT 8.3 10^3/uL (4.0-10.0)
[2019-06-12 11:40] LABS: CHOLESTEROL RISK RATIO 2.444 (<5); FREE T4 1.03 NG/DL (0.76-1.46); THYROID STIMULATING HORMONE 2.19 uIU/ML (0.358-3.740)
[2019-06-12 11:42] LABS: HEMOGLOBIN A1c 6.5 %
[2019-06-12 12:02] LABS: TOTAL 25(OH) VITAMIN D 87.4 NG/ML (30.0-100.0)
== END ==
LOC: M SFHCPLAZ 08:57
PROVIDERS: ATTEND Family Medicine
DX: K62.5 Hemorrhage of anus and rectum (principal); E04.1 Nontoxic single thyroid nodule; E11.65 Type 2 diabetes mellitus with hyperglycemia; E78.2 Mixed hyperlipidemia; E55.9 Vitamin D deficiency, unspecified

== ENCOUNTER 2019-11-10 12:48 | Emergency (ER) | payer BC ==
[~2019-11-10] VITALS: Ht 165.1 cm; Wt 97.9 kg
[~2019-11-10 12:48] MED LIST changes: -METF500T13
[2019-11-10] MEDS ORDERED: NS 1,000 ML IV ONE (13:45)
[2019-11-10 14:45] LABS: BASO % 0.3 % (0.0-1.0); EOS # 0.2 10^3/uL (0.0-0.5); EOS % 2.1 % (0.0-3.0); HEMATOCRIT 42.4 % (36.0-47.0); HEMOGLOBIN 14.4 g/dl (12.0-15.5); LYMPH # 2.4 10^3/uL (1.5-5.0); LYMPH % 27.3 % (24.0-44.0); MEAN CORPUSCULAR HEMOGLOBIN 31.1 pg (27.0-33.0); MEAN CORPUSCULAR VOLUME 91.6 fl (80.0-96.0); MONO # 0.7 10^3/uL (0.0-0.8); MONO % 8.1 % (0.0-5.0); NEUTROPHILS # 5.4 10^3/uL (1.5-8.5); NEUTROPHILS % 61.5 % (36.0-66.0); PLATELET COUNT, AUTOMATED 321 10^3/uL (150-450); RED BLOOD COUNT 4.63 10^6/uL (4.00-5.40); WHITE BLOOD COUNT 8.8 10^3/uL (4.0-10.0)
[2019-11-10 14:56] LABS: ALT/SGPT 52 U/L (12-78); BILIRUBIN,DIRECT 0.2 MG/DL (0.0-0.2); BILIRUBIN,TOTAL 0.4 MG/DL (0.2-1.0); LIPASE 135 U/L (73-393); TOTAL PROTEIN 8.3 GM/DL (6.4-8.2)
[2019-11-10 15:26] LABS: BLOOD UREA NITROGEN 9 MG/DL (7-18); CALCIUM LEVEL 9.1 MG/DL (8.5-10.1); CARBON DIOXIDE LEVEL 26 MEQ/L (21-32); CHLORIDE LEVEL 102 MEQ/L (98-107); CREATININE FOR GFR 0.61 MG/DL (0.55-1.30); GLOMERULAR FILTRATION RATE > 60.0 (>60); GLUCOSE, FASTING 141 MG/DL (70-100); POTASSIUM SERUM 4.1 MEQ/L (3.5-5.1); SODIUM LEVEL 135 MEQ/L (136-145)
[2019-11-10] MEDS ORDERED: ISOVUE-370 76% 100ML VIAL As Ordered ONE (15:39)
[2019-11-10] MEDS ORDERED: KETOROLAC 30 MG/ML 1ML VIAL IV ONE (15:45)
[2019-11-10 16:57] VITALS: BP 117/58
--- NOTE | 2019-11-11 12:19 | REP ---
CT ABDOMEN/PELVIS WITH IV CONTRAST ONLY: 11/10/2019. CLINICAL HISTORY: Right flank pain radiating to right lower quadrant. TECHNIQUE: Bolus of 100 mL Isovue 370, scanning through the abdomen/pelvis with both coronal and sagittal reconstructions provided. COMPARISON: 02/03/2016 FINDINGS: CT ABDOMEN: Lung bases are clear. Heart not enlarged. There is no pericardial thickening or effusion. No hiatal hernia. Fatty infiltration of the liver is noted diffusely. Liver is enlarged with an 18 cm vertical diameter in the right hepatic lobe. No mass or biliary dilatation. Borderline splenomegaly at 12.9 cm length for the spleen. No focal lesion. Adrenal glands are normal. Pancreas unremarkable. The aorta intact. No periaortic, retroperitoneal, or mesenteric pathologic sized lymphadenopathy. No generalized ascites, and no perforation or free air evident. The bilateral kidneys are symmetric in appearance and enhancement. There is no evidence for hydronephrosis, mass, cyst, or stone. No patchy enhancement to suggest pyelonephritis nor perinephric edema. There is a retrocecal appendix which is normal and unchanged. No ventral hernia. Bone windows are unremarkable for the spine and visualized ribs. CT PELVIS: The bony sacrum, SI joints, pelvis, and hips are unremarkable. Small bowel loops in the abdomen pelvis are mostly fluid filled without dilatation or mesenteric inflammatory change. Colon shows stool and gas scattered throughout without colitis or diverticulitis. There is no pelvic free fluid. Uterus is anteverted, not enlarged. No adnexal mass, pelvic adenopathy, nor any evidence for ventral/inguinal hernia. No inguinal adenopathy or pelvic adenopathy. IMPRESSION: 1. Fatty infiltration of the liver but the liver, spleen, adrenal glands, pancreas, and stomach unremarkable. 2. Kidneys symmetric in enhancement without signs for pyelonephritis, hydronephrosis, stone, mass, or hydroureter. 3. Small bowel loops mostly fluid-filled without dilatation or inflammatory change. No mesenteric edema, abdominal pelvic adenopathy, colitis or diverticulitis. 4. Appendix well seen and it is retrocecal without inflammatory change. 5. No pelvic abnormalities, and the bones unremarkable. Electronically Signed by Nick Montanez MD 11/11/2019 06:54 P
[2019-12-27] MEDS ORDERED: LORA-243 PO (15:44)
[2019-12-27] MEDS ORDERED: FAMO20TA PO (15:44)
[2019-12-27] MEDS ORDERED: OMEG12004 PO (15:44)
[2019-12-27] MEDS ORDERED: D31000TA2 PO (15:44)
[2019-12-27] MEDS ORDERED: ACET500T15 PO (15:44)
[2019-12-27] MEDS ORDERED: MULTCAP PO (15:44)
[2019-12-27] MEDS ORDERED: VITA50005 PO (15:44)
== END 2019-11-10 17:11 | disposition home or self-care (01) ==
LOC: M ED 12:48
DX: R10.9 Unspecified abdominal pain (principal); K21.9 Gastro-esophageal reflux disease without esophagitis; K76.0 Fatty (change of) liver, not elsewhere classified; E11.9 Type 2 diabetes mellitus without complications; Z79.899 Other long term (current) drug therapy; Z79.84 Long term (current) use of oral hypoglycemic drugs; Z88.1 Allergy status to other antibiotic agents; Z88.6 Allergy status to analgesic agent; Z88.8 Allergy status to other drugs, medicaments and biological substances
CPT/HCPCS: 74177; 80048; 80076; 81001; 83690; 84702; 85025; 99284; Q9967

== ENCOUNTER → 2019-12-23 | Outpatient (CLI) | payer BC ==
[~2019-12-23] MED LIST changes: +ACET500T15 PO; +COLA100C5 PO; +D31000TA2 PO; +DOXY100C37 PO; +FAMO20TA PO; +LORA-243 PO; +MACR100C43 PO; +MULTCAP PO; +OMEG12004 PO; +ONDA4TAB6 PO
== END ==
LOC: M LABSMTC 10:44
PROVIDERS: ATTEND Anesthesiology
DX: Z11.59 Encounter for screening for other viral diseases (principal)

== ENCOUNTER 2019-12-28 08:16 | Day surgery (SDC) | payer BC ==
[~2019-12-28] VITALS: Ht 165.1 cm; Wt 98.5 kg
[2019-12-28] VITALS (9 sets, daily range): BP systolic 109–119; BP diastolic 62–72
[~2019-12-28 08:16] MED LIST changes: -COLA100C5 PO; -DOXY100C37 PO; -MACR100C43 PO; -ONDA4TAB6 PO
[2019-12-28] MEDS ORDERED: propofoL 200 MG/20 ML VIAL As Ordered ONE (08:48)
[2019-12-28] MEDS ORDERED: SUGAMMADEX SODIUM 500 MG/5 ML VIAL (BRIDION) As Ordered ONE (08:48)
[2019-12-28] MEDS ORDERED: ROCURONIUM BROMIDE 50 MG/5 ML VIAL As Ordered ONE ×2 (08:48→11:25)
[2019-12-28] MEDS ORDERED: fentaNYL 100 MCG/2 ML INJECTION (J3010) As Ordered ONE (08:48)
[2019-12-28] MEDS ORDERED: LIDOCAINE 2% 100MG/5ML SDV (FOR ANES.) As Ordered ONE (08:48)
[2019-12-28] MEDS ORDERED: dexameTHASONE 4 MG/ML 1ML VIAL (J1100 PER 1MG) As Ordered ONE (08:48)
[2019-12-28] MEDS ORDERED: HYDROmorphone HCL 2 MG/ML 1ML VIAL (J1170) As Ordered ONE (08:48)
[2019-12-28] MEDS ORDERED: ONDANSETRON 4MG/2ML VIAL As Ordered ONE (08:48)
[2019-12-28] MEDS ORDERED: ACETAMINOPHEN 1000MG 100ML IV BTL (OFIRMEV) (J0131 PER 10MG) As Ordered ONE ×2 (08:48→11:27)
[2019-12-28] MEDS ORDERED: MIDAZOLAM INJ 2MG/2ML VIAL (J2250 PER 1MG) As Ordered ONE (08:49)
[2019-12-28] MEDS ORDERED: KETOROLAC 60MG 2ML VIAL As Ordered ONE (08:58)
[2019-12-28] MEDS ORDERED: ATORVASTATIN 10 MG TAB PO SCH ×2 (09:00→21:00)
[2019-12-28] MEDS ORDERED: ceFAZolin 1GM VIAL (J0690 PER 500MG) As Ordered ONE ×2 (09:08→10:50)
[2019-12-28] MEDS ORDERED: ceFAZolin SOD 2 GM in IV 1 EA IV ONE (09:30)
[2019-12-28] MEDS ORDERED: SCOPOLAMINE 1MG TRANSDERMAL PATCH As Ordered ONE (09:38)
[2019-12-28 09:45] LABS: HEMATOCRIT 39.7 % (36.0-47.0); HEMOGLOBIN 13.4 g/dl (12.0-15.5); MEAN CORPUSCULAR HEMOGLOBIN 31.3 pg (27.0-33.0); MEAN CORPUSCULAR HGB CONC 33.8 g/dl (32.0-36.5); MEAN CORPUSCULAR VOLUME 92.8 fl (80.0-96.0); PLATELET COUNT, AUTOMATED 299 10^3/uL (150-450); RED BLOOD COUNT 4.28 10^6/uL (4.00-5.40); WHITE BLOOD COUNT 6.8 10^3/uL (4.0-10.0)
[2019-12-28] MEDS ORDERED: LR 1,000 ML IV ONE (09:45)
[2019-12-28] MEDS ORDERED: SCOPOLAMINE 1MG TRANSDERMAL PATCH TOP ONE (09:45)
[2019-12-28] MEDS ORDERED: METHYLENE BLUE 0.5% (5MG/ML) 10 ML AMP (PROVAYBLUE) As Ordered ONE (10:11)
[2019-12-28] MEDS ORDERED: BUPIVACAINE HCL 0.25% 30ML VIAL As Ordered ONE (10:11)
[2019-12-28] MEDS ORDERED: MEPERIDINE INJ 25 MG/ML VIAL (J2175) IV PRN (13:00)
[2019-12-28] MEDS ORDERED: PROMETHAZINE INJ 25 MG/ML VIAL (J2550) IV PRN (13:00)
[2019-12-28] MEDS ORDERED: fentaNYL 100 MCG/2 ML INJECTION (J3010) IV PRN (13:00)
[2019-12-28] MEDS ORDERED: METOCLOPRAMIDE INJ 10MG/2ML VIAL (J2765 PER 1) IV PRN (13:00)
[2019-12-28] MEDS ORDERED: LR 1,000 ML IV SCH ×2 (13:00)
[2019-12-28] MEDS ORDERED: ONDANSETRON 4MG/2ML VIAL IV PRN ×2 (13:00)
[2019-12-28] MEDS ORDERED: oxyCODONE 5MG TAB PO PRN (13:00)
[2019-12-28] MEDS: PERCOCET 5MG/325MG TAB PO PRN (17:59)
[2019-12-28] MEDS ORDERED: metFORMIN (GLUCOPHAGE) 500 MG TAB PO SCH (18:00)
[2019-12-28] MEDS ORDERED: LORATADINE 10 MG TAB PO SCH (21:00)
[2019-12-28] MEDS ORDERED: FAMOTIDINE 20 MG TAB PO SCH (21:00)
[2019-12-28] MEDS ORDERED: HYDROXYCHLOROQUINE 200 MG TAB PO SCH (21:00)
[2019-12-28] MEDS ORDERED: lisinopriL 5 MG TAB PO SCH (21:00)
[2019-12-28] MEDS ORDERED: DULoxetine 30 MG CAP (CYMBALTA) PO SCH (21:00)
[2019-12-29] VITALS: BP 116/61
[2019-12-29] MEDS: PERCOCET 5MG/325MG TAB PO PRN ×2 (00:04→09:35)
[2019-12-29 04:00] VITALS: BP 114/71
[2019-12-29 11:45] VITALS: BP 110/76
== END 2019-12-29 10:50 | disposition home or self-care (01) ==
LOC: M SDC 08:16 → M PED 13:20 → M SDC 12-29 10:50
PROVIDERS: ATTEND Obstetrics & Gynecology
DX: N93.9 Abnormal uterine and vaginal bleeding, unspecified (principal); R10.2 Pelvic and perineal pain; G89.29 Other chronic pain; N80.9 Endometriosis, unspecified; Z88.1 Allergy status to other antibiotic agents; Z88.2 Allergy status to sulfonamides; Z88.5 Allergy status to narcotic agent; Z88.6 Allergy status to analgesic agent; Z91.048 Other nonmedicinal substance allergy status
CPT/HCPCS: 36415; 58571; 81025; 85027; 86850; 86900; 86901; 88307; J0131; J0690; J1100; J1170; J1885; J2250; J2405; J3010; Q9968

== ENCOUNTER → 2020-01-22 | Outpatient (REF) | payer BC ==
[~2020-01-22] MED LIST changes: +COLA100C5 PO; +DOXY100C37 PO; +MACR100C43 PO; +ONDA4TAB6 PO
== END ==
LOC: M LAB REF 21:33
PROVIDERS: ATTEND Physician Assistant Medical
DX: J33.9 Nasal polyp, unspecified (principal)

== ENCOUNTER 2020-01-25 21:06 | Emergency (ER) | payer BC ==
[~2020-01-25] VITALS: Ht 165.1 cm; Wt 95.5 kg
[~2020-01-25 21:06] MED LIST changes: -COLA100C5 PO; -DOXY100C37 PO; -MACR100C43 PO; -ONDA4TAB6 PO
[2020-01-25] MEDS ORDERED: DOXY100C37 PO (21:14)
[2020-01-25 23:13] LABS: BASO % 0.4 % (0.0-1.0); EOS # 0.4 10^3/uL (0.0-0.5); EOS % 4.1 % (0.0-3.0); HEMATOCRIT 39.4 % (36.0-47.0); HEMOGLOBIN 13.3 g/dl (12.0-15.5); LYMPH # 3.7 10^3/uL (1.5-5.0); LYMPH % 40.3 % (24.0-44.0); MEAN CORPUSCULAR HEMOGLOBIN 30.9 pg (27.0-33.0); MEAN CORPUSCULAR HGB CONC 33.8 g/dl (32.0-36.5); MEAN CORPUSCULAR VOLUME 91.6 fl (80.0-96.0); MONO # 0.8 10^3/uL (0.0-0.8); MONO % 8.3 % (0.0-5.0); NEUTROPHILS # 4.3 10^3/uL (1.5-8.5); NEUTROPHILS % 46.6 % (36.0-66.0); PLATELET COUNT, AUTOMATED 304 10^3/uL (150-450); WHITE BLOOD COUNT 9.2 10^3/uL (4.0-10.0)
--- NOTE | 2020-01-25 23:40 | REPVR ---
PROCEDURE INFORMATION: Exam: US Pelvis Complete, Transabdominal and US Pelvis, Transvaginal Exam date and time: 01/25/2020 11:23 PM Age: 30 years old Clinical indication: Other: Vaginal bleeding with clots; Prior surgery; Surgery date: 1-6 months; Surgery type: Patient had partial hysterectomy 4 weeks ago; Additional info: Hyster 4 days ago, poss hematoma, vag bleed c clots TECHNIQUE: Imaging protocol: Real-time transabdominal and transvaginal pelvic ultrasound (complete) with image documentation. Transvaginal imaging was used for better evaluation of the endometrium and adnexa. COMPARISON: US PELVIC NON-OB COMPLETE 01/27/2018 4:28 PM FINDINGS: Uterus/cervix: Status post hysterectomy. Right adnexa: Right ovary is not visualized because of overlying bowel gas. Left adnexa: Left ovary is not visualized because of overlying bowel gas. Intraperitoneal space: None. Urinary bladder: Normal. IMPRESSION: Uterus and ovaries not seen. Electronically signed by: Jackson Walter On 01/25/2020 23:39:54 PM
[2020-01-25 23:45] LABS: BLOOD UREA NITROGEN 14 MG/DL (7-18); CARBON DIOXIDE LEVEL 26 MEQ/L (21-32); CHLORIDE LEVEL 103 MEQ/L (98-107); CREATININE FOR GFR 0.68 MG/DL (0.55-1.30); GLOMERULAR FILTRATION RATE > 60.0 (>60); GLUCOSE, FASTING 136 MG/DL (70-100); POTASSIUM SERUM 4.1 MEQ/L (3.5-5.1); SODIUM LEVEL 139 MEQ/L (136-145)
[2020-01-26] MEDS ORDERED: ISOVUE-370 76% 100ML VIAL As Ordered ONE (00:08)
[2020-01-26] MEDS ORDERED: NS 1,000 ML IV ONE (00:15)
--- NOTE | 2020-01-26 00:42 | REPVR ---
PROCEDURE INFORMATION: Exam: CT Abdomen And Pelvis With Contrast Exam date and time: 01/26/2020 12:04 AM Age: 30 years old Clinical indication: Other: Vaginal bleeding; Prior surgery; Surgery date: <1 month; Surgery type: Hysterectomy; Additional info: Vaginal bleeding, S/P hyster 4 wks ago TECHNIQUE: Imaging protocol: Computed tomography of the abdomen and pelvis with intravenous contrast. Radiation optimization: All CT scans at this facility use at least one of these dose optimization techniques: automated exposure control; mA and/or kV adjustment per patient size (includes targeted exams where dose is matched to clinical indication); or iterative reconstruction. Contrast material: ISO; Contrast volume: 100 ml; Contrast route: INTRAVENOUS (IV); COMPARISON: CT ABD/PEL W/IV CONTRAST ONLY 11/10/2019 3:44 PM FINDINGS: Liver: Subtle hypervascular lesion in the medial left hepatic lobe measuring 8 mm. (Series 201, image 14, hepatic segment 4A). Hypervascular lesion in the right hepatic lobe. (Series 201, image 23, of the attic segment 8). Hypervascular lesion in the anterior right hepatic lobe measuring 1.5 x 1.5 cm. (Series 201. Image 26. Hepatic segment 8). Fatty infiltration of the liver. Gallbladder and bile ducts: Normal. No calcified stones. No ductal dilation. Pancreas: Normal. No ductal dilation. Spleen: Normal. No splenomegaly. Adrenals: Normal. No mass. Kidneys and ureters: Normal. No hydronephrosis. Stomach and bowel: Severe stool in the colon. No abnormal bowel dilatation. No abnormal bowel wall thickening. Negative for colonic diverticulitis. Appendix: Appendix is normal. Intraperitoneal space: Unremarkable. No free air. No significant fluid collection. Vasculature: Unremarkable. No abdominal aortic aneurysm. Lymph nodes: Unremarkable. No enlarged lymph nodes. Urinary bladder: Unremarkable as visualized. Reproductive: Status post hysterectomy. Thick-walled lesion in the right ovary measuring 1.9 x 1.3 x 1.7 cm suspicious for corpus luteum. Bones/joints: Unremarkable. No acute fracture. Soft tissues: Unremarkable. IMPRESSION: 1. Status post hysterectomy. 2. Thick-walled lesion in the right ovary suspicious for corpus luteum. No follow-up is necessary. 3. Fatty infiltration of the liver. 4. Multiple hypervascular lesions in the liver. In a low-risk patient, this lesion is most likely to be benign and no further follow-up is recommended. In a high-risk patient, recommend further evaluation with liver MRI. Electronically signed by: Jackson Walter On 01/26/2020 00:41:45 AM
[2020-01-26 00:56] VITALS: BP 133/67
--- NOTE | 2020-01-28 07:52 | ED PDOC ---
Post-Departure Follow-Up ct abd/p faxed to dr gtz for fu Nyla Castellanos MD Jan 28, 2020 07:52
--- NOTE | 2020-02-12 14:39 | ED PDOC ---
Post-Departure Follow-Up dr gtz faxed formal report of ct abd/p for fu Nyla Castellanos MD Feb 12, 2020 14:39
== END 2020-01-26 01:06 | disposition home or self-care (01) ==
LOC: M ED 21:06
DX: N93.9 Abnormal uterine and vaginal bleeding, unspecified (principal); Z90.710 Acquired absence of both cervix and uterus; N83.11 Corpus luteum cyst of right ovary; K76.0 Fatty (change of) liver, not elsewhere classified; K76.89 Other specified diseases of liver; E11.9 Type 2 diabetes mellitus without complications; M32.9 Systemic lupus erythematosus, unspecified; Z88.2 Allergy status to sulfonamides; Z88.6 Allergy status to analgesic agent; Z88.8 Allergy status to other drugs, medicaments and biological substances; Z79.899 Other long term (current) drug therapy
CPT/HCPCS: 36415; 74177; 76830; 76856; 80048; 81001; 85025; 86850; 86900; 86901; 87210; 96360; 99284; Q9967

== ENCOUNTER → 2020-02-08 | Outpatient (REF) | payer BC ==
[~2020-02-08] MED LIST changes: +COLA100C5 PO; +DOXY100C37 PO; +MACR100C43 PO; +ONDA4TAB6 PO
[2020-02-11 15:11] LABS: ANTI DOUBLE STRAND-DNA AB 2 IU/mL (0-9); ANTINUCLEAR ANTIBODIES DIRECT Positive (Negative); RNP ANTIBODIES <0.2 AI (0.0-0.9); SJOGREN'S ANTI SS-A <0.2 AI (0.0-0.9); SJOGREN'S ANTI SS-B 1.3 AI (0.0-0.9); SMITH ANTIBODIES <0.2 AI (0.0-0.9)
== END ==
LOC: M LAB REF 14:10
PROVIDERS: ATTEND Internal Medicine Rheumatology
DX: M32.9 Systemic lupus erythematosus, unspecified (principal); R76.8 Other specified abnormal immunological findings in serum

== ENCOUNTER 2020-02-13 15:31 | Emergency (ER) | payer BC ==
[~2020-02-13] VITALS: Ht 165.1 cm; Wt 100.0 kg
[~2020-02-13 15:31] MED LIST changes: -COLA100C5 PO; -MACR100C43 PO; -ONDA4TAB6 PO
[2020-02-13] MEDS ORDERED: NS 1,000 ML IV ONE (16:45)
[2020-02-13] MEDS ORDERED: ONDANSETRON 4MG/2ML VIAL IV ONE (16:45)
[2020-02-13 17:38] LABS: BASO % 0.2 % (0.0-1.0); EOS # 0.1 10^3/uL (0.0-0.5); EOS % 0.3 % (0.0-3.0); HEMATOCRIT 38.9 % (36.0-47.0); HEMOGLOBIN 13.2 g/dl (12.0-15.5); LYMPH # 1.8 10^3/uL (1.5-5.0); LYMPH % 12.2 % (24.0-44.0); MEAN CORPUSCULAR HEMOGLOBIN 31.1 pg (27.0-33.0); MEAN CORPUSCULAR HGB CONC 33.9 g/dl (32.0-36.5); MEAN CORPUSCULAR VOLUME 91.7 fl (80.0-96.0); MONO # 1.2 10^3/uL (0.0-0.8); MONO % 7.9 % (0.0-5.0); NEUTROPHILS # 11.8 10^3/uL (1.5-8.5); NEUTROPHILS % 78.9 % (36.0-66.0); PLATELET COUNT, AUTOMATED 305 10^3/uL (150-450); RED BLOOD COUNT 4.24 10^6/uL (4.00-5.40); WHITE BLOOD COUNT 14.9 10^3/uL (4.0-10.0)
--- NOTE | 2020-02-13 17:52 | REPVR ---
PROCEDURE INFORMATION: Exam: US Nonobstetric Pelvis; Complete Exam date and time: 02/13/2020 5:28 PM Age: 30 years old Clinical indication: Pelvic pain; Prior surgery; Surgery date: 6+ months; Surgery type: Hysterectomy; Additional info: 7-8wk S/P hyster, pelvic pain after intercourse TECHNIQUE: Imaging protocol: Transabdominal pelvic nonobstetric ultrasound. Complete exam. Real time ultrasound with image documentation. COMPARISON: US PELVIC NON-OB COMPLETE 01/25/2020 11:06 PM FINDINGS: Uterus/cervix: Status post hysterectomy. Right adnexa: Right ovary measures 3.7 x 2.1 x 2.6 cm. Hypoechoic echo filled cystic lesion measures 1.8 x 1.5 x 1.6 cm likely represents a hemorrhagic cyst. Normal flow. Left adnexa: Left ovary measures 2 x 1.2 x 1.6 cm. Normal flow. Intraperitoneal space: None. Bladder: Visualized bladder unremarkable. IMPRESSION: 1. Status post hysterectomy. 2. Probable hemorrhagic cyst right ovary. No follow-up suggested based on lesion size and appearance. Electronically signed by: Miguelito Parker On 02/13/2020 17:52:21 PM
[2020-02-13 18:02] LABS: ALBUMIN 3.6 GM/DL (3.2-5.2); ALT/SGPT 47 U/L (12-78); BILIRUBIN,DIRECT 0.3 MG/DL (0.0-0.2); BILIRUBIN,TOTAL 1.1 MG/DL (0.2-1.0); BLOOD UREA NITROGEN 5 MG/DL (7-18); CALCIUM LEVEL 9.3 MG/DL (8.5-10.1); CARBON DIOXIDE LEVEL 27 MEQ/L (21-32); CHLORIDE LEVEL 101 MEQ/L (98-107); GLOMERULAR FILTRATION RATE > 60.0 (>60); GLUCOSE, FASTING 145 MG/DL (70-100); LIPASE 87 U/L (73-393); POTASSIUM SERUM 3.6 MEQ/L (3.5-5.1); SODIUM LEVEL 136 MEQ/L (136-145); TOTAL PROTEIN 7.6 GM/DL (6.4-8.2)
[2020-02-13] MEDS ORDERED: MACR100C43 PO (18:22)
[2020-02-13 18:32] VITALS: BP 131/75
== END 2020-02-13 18:34 | disposition home or self-care (01) ==
LOC: M ED 15:31
DX: N39.0 Urinary tract infection, site not specified (principal); N83.201 Unspecified ovarian cyst, right side; E11.9 Type 2 diabetes mellitus without complications; M32.9 Systemic lupus erythematosus, unspecified; N02.2 Recurrent and persistent hematuria with diffuse membranous glomerulonephritis; E06.3 Autoimmune thyroiditis; Z90.710 Acquired absence of both cervix and uterus; Z88.2 Allergy status to sulfonamides; Z88.1 Allergy status to other antibiotic agents; Z88.6 Allergy status to analgesic agent; Z88.8 Allergy status to other drugs, medicaments and biological substances; Z79.899 Other long term (current) drug therapy
CPT/HCPCS: 36415; 76830; 76856; 80048; 80076; 81001; 83690; 85025; 87088; 87186; 93976; 96361; 96374; 99284; J2405

== ENCOUNTER → 2020-02-20 | Outpatient (CLI) | payer BC ==
[~2020-02-20] MED LIST changes: +COLA100C5 PO; +MACR100C43 PO; +ONDA4TAB6 PO
--- NOTE | 2020-02-20 17:47 | REP ---
INDICATION: N89.8 VAGINAL MASS. COMPARISON: 02/13/2020 and 01/25/2020 TECHNIQUE: Transabdominal and transvaginal scanning were performed. FINDINGS: The patient has had a hysterectomy. No free fluid is seen in the cul-de-sac. The bladder measures 4.6 x 4.1 x 6.1 cm. The right ovary has dimensions of 3.5 x 2.3 x 2.2 cm. Blood flow is seen in the right ovary with Doppler evaluation. Complex follicle in the right ovary has a maximum diameter of 1.6 cm. The left ovary dimensions are normal as well at 2.2 x 1.8 x 1.1 cm. Blood flow is seen in the left ovary with Doppler evaluation. In the anterior vaginal canal is a hyperechoic mass with internal blood flow with Doppler evaluation. It measures 3.9 x 1.4 x 2.5 cm. There is also a small cystic structure in the vaginal wall measuring 7 x 5 x 9 mm. IMPRESSION: Status post hysterectomy. In the anterior vaginal canal is a solid hyperechoic mass with internal blood flow with Doppler evaluation. It measures 3.9 x 1.4 x 2.5 cm. There is also a small cystic structure in the vaginal wall measuring 7 x 5 x 9 mm. <Electronically signed by Miguel Stewart > 02/20/20 1742
== END ==
LOC: M WHC 15:24
PROVIDERS: ATTEND Obstetrics & Gynecology
DX: N89.8 Other specified noninflammatory disorders of vagina (principal); Z90.710 Acquired absence of both cervix and uterus

== ENCOUNTER → 2020-02-27 | Outpatient (CLI) | payer BC | LOC: M LABSMTC 09:42 | PROVIDERS: ATTEND Anesthesiology | DX: Z11.59 Encounter for screening for other viral diseases (principal) ==

== ENCOUNTER 2020-02-29 09:27 | Day surgery (SDC) | payer BC ==
[~2020-02-29] VITALS: Ht 165.1 cm; Wt 96.2 kg
[~2020-02-29 09:27] MED LIST changes: -COLA100C5 PO; +LIDOCAINE 1% MDV 20ML VIAL SQ PRN; +LR 1,000 ML IV ONE; -ONDA4TAB6 PO; +ceFAZolin SOD 2 GM in IV 1 EA IV ONE
[2020-02-29 09:58] LABS: HEMOGLOBIN 13.5 g/dl (12.0-15.5); MEAN CORPUSCULAR HEMOGLOBIN 30.2 pg (27.0-33.0); MEAN CORPUSCULAR HGB CONC 32.9 g/dl (32.0-36.5); MEAN CORPUSCULAR VOLUME 91.7 fl (80.0-96.0); PLATELET COUNT, AUTOMATED 328 10^3/uL (150-450); RED BLOOD COUNT 4.47 10^6/uL (4.00-5.40); WHITE BLOOD COUNT 6.8 10^3/uL (4.0-10.0)
[2020-02-29] MEDS ORDERED: MIDAZOLAM INJ 2MG/2ML VIAL (J2250 PER 1MG) As Ordered ONE (10:11)
[2020-02-29] MEDS ORDERED: BUPIVACAINE HCL 0.25% 30ML VIAL As Ordered ONE (10:12)
[2020-02-29] MEDS ORDERED: fentaNYL 100 MCG/2 ML INJECTION (J3010) As Ordered ONE (10:13)
[2020-02-29] MEDS ORDERED: ONDANSETRON 4MG/2ML VIAL As Ordered ONE ×2 (11:28→13:21)
[2020-02-29] MEDS ORDERED: METOCLOPRAMIDE INJ 10MG/2ML VIAL (J2765 PER 1) As Ordered ONE (11:28)
[2020-02-29] MEDS ORDERED: SUGAMMADEX SODIUM 500 MG/5 ML VIAL (BRIDION) As Ordered ONE (11:31)
[2020-02-29] MEDS ORDERED: LIDOCAINE 2% 100MG/5ML SDV (FOR ANES.) As Ordered ONE (11:31)
[2020-02-29] MEDS ORDERED: propofoL 200 MG/20 ML VIAL As Ordered ONE ×2 (11:31→12:58)
[2020-02-29] MEDS ORDERED: ROCURONIUM BROMIDE 50 MG/5 ML VIAL As Ordered ONE ×2 (11:31→11:36)
[2020-02-29] MEDS ORDERED: ACETAMINOPHEN 1000MG 100ML IV BTL (OFIRMEV) (J0131 PER 10MG) As Ordered ONE (11:32)
[2020-02-29] MEDS ORDERED: KETOROLAC 60MG 2ML VIAL As Ordered ONE (11:43)
[2020-02-29] MEDS ORDERED: GLYCOPYRROLATE INJ 0.2 MG/ML 2 ML VIAL As Ordered ONE (11:52)
[2020-02-29] MEDS ORDERED: HYDROmorphone HCL 2 MG/ML 1ML VIAL (J1170) As Ordered ONE (12:35)
[2020-02-29] MEDS ORDERED: ONDANSETRON 4MG/2ML VIAL IV PRN (13:45)
[2020-02-29] MEDS ORDERED: LR 1,000 ML IV SCH (13:45)
[2020-02-29] MEDS ORDERED: oxyCODONE 5MG TAB PO PRN (13:45)
[2020-02-29] MEDS ORDERED: METOCLOPRAMIDE INJ 10MG/2ML VIAL (J2765 PER 1) IV PRN (13:45)
[2020-02-29] MEDS ORDERED: fentaNYL 100 MCG/2 ML INJECTION (J3010) IV PRN (13:45)
--- NOTE | 2020-02-29 14:05 | ROOPDOC ---
[facility] Report Of Operation Report of Operation DATE OF PROCEDURE: 02/29/20 PREOPERATIVE DIAGNOSIS: Vaginal cuff dehiscence, status post hysterectomy POSTOPERATIVE DIAGNOSIS: Same SURGERY: Robotic-assisted lysis of adhesions and vaginal cuff closure and cystoscopy SURGEON: Chito Kat DO FACOG COSMETOLOGY EDUCATOR: Kelly Phelps (essential for tissue site exposure and manipulation of the vaginal cuff) EBL: 20mL FLUID REPLACED: 800 mL URINE OUTPUT: 100 mL SPECIMENS: None COMPLICATIONS: None PREOPERATIVE ANTIBIOTICS: Ancef 2g IV x 1 INDICATION: Vaginal cuff dehiscence noted in the office during postoperative follow up. Pt reported bleeding and pain shortly after having intercourse. INTRAOPERATIVE FINDINGS: Vaginal cuff opening approximately 2-3 cm with greater omentum herniating through this opening. No small or large bowel coming through the vaginal opening. Thick omental adhesions to the vaginal cuff. PROCEDURE: The patient was counseled and consented on the risks, benefits, indications and alternatives of procedure. Informed consent was obtained. She was taken to the operating room with an IV running. She was placed on the operating table in the dorsal supine position. General anesthesia was administered and the airway secured without any difficulty. She was placed in the low lithotomy position. She was prepared and draped in normal sterile fashion. A timeout was performed per protocol. A Mary catheter was placed under sterile conditions. Attention was first turned to the vagina. A speculum was placed with good visualization of the vaginal cuff and the opening/dehiscence. Tissue was noted to be protruding through this opening, but it was difficult to tell what this tissue was at the start of the case. A sponge stick was placed into the vagina. A sterile glove switch was performed, and attention was turned to the abdomen. A Veress needle was placed through the umbilicus. Intraperitoneal placement was confirmed with ease of flow of normal saline, a positive drop test and negative return on aspiration. The opening pressure was 6 mmHg. The abdomen was insufflated with 2 L of gas. A horizontal 8mm midline supraumbilical incision was made with the 11 blade and a da Yoni cannula/trocar was placed into the intraperitoneal cavity without difficulty. The patient was placed in steep Trendelenburg. 3 more 8 mm abdominal incisions were made across the abdomen, and through these incisions da Yoni cannula/trochars were placed under direct visualization without difficulty. The robot was then docked and the instruments inserted into the abdomen in typical fashion. Attention was turned to the robotic console. The greater omentum was densely adherent to the vaginal cuff and protruding through the vaginal cuff dehiscence. With careful blunt and electrocautery dissection using the monopolar padma and force bipolar instruments, the omentum was eventually fully mobilized and lifted out of the vagina. I did not recognize any small bowel or large intestine within the omental adhesions or protruding through the vaginal cuff. Once the omentum was mobilized and moved away, close the vaginal cuff with the lock suture in 2 layers. Excellent hemostasis was noted. The abdomen and pelvis were irrigated and the fluid suctioned. No bleeding was noted throughout the abdomen and pelvis. Edith was placed over the omental dissection area and the vaginal cuff. Attention was turned back to the pelvis. The Mary catheter was removed. The cystoscope was placed transurethrally into the bladder and normal saline was instilled. , No suture material within the bladder wall was noted. No bladder injury/defect was noted. Bilateral ureteral jets were visualized. The cystoscope was removed. A speculum was placed into the vagina. Along the central portion of the vaginal cuff, an additional 0 Vicryl suture was placed. Excellent hemostasis was noted. The vagina was copiously irrigated. The patient was taken out of Trendelenburg. The gas was released from the abdomen. The cannulas were removed. The skin incisions were closed with 4-0 Monocryl in subcuticular fashion and reinforced with Dermabond. Sponge, needle and instrument counts were correct per protocol. Patient tolerated the entire procedure very well. She was transferred to the PACU in good and stable condition. DO MANI Child JONATHAN R. DO Feb 29, 2020 14:05
[2020-02-29] MEDS ORDERED: OXYC1TAB23 PO (16:36)
[2020-02-29] MEDS ORDERED: COLA100C5 PO (16:39)
[2020-02-29] MEDS ORDERED: ONDA4TAB6 PO (16:40)
[2020-02-29 16:45] VITALS: BP 120/78
== END 2020-02-29 16:45 | disposition home or self-care (01) ==
LOC: M SDC 09:27
PROVIDERS: ATTEND Obstetrics & Gynecology
DX: T81.31XA Disruption of external operation (surgical) wound, not elsewhere classified, initial encounter (principal); N73.6 Female pelvic peritoneal adhesions (postinfective); K21.9 Gastro-esophageal reflux disease without esophagitis; K58.8 Other irritable bowel syndrome; E11.9 Type 2 diabetes mellitus without complications; N18.2 Chronic kidney disease, stage 2 (mild); Z79.84 Long term (current) use of oral hypoglycemic drugs; Z79.899 Other long term (current) drug therapy; F41.9 Anxiety disorder, unspecified; F32.9 Major depressive disorder, single episode, unspecified; Z88.8 Allergy status to other drugs, medicaments and biological substances; Z88.2 Allergy status to sulfonamides; Z88.5 Allergy status to narcotic agent; Z88.1 Allergy status to other antibiotic agents
CPT/HCPCS: 36415; 49329; 85027; 86850; 86900; 86901; J0131; J0690; J1170; J2250; J2405; J2765; J3010; S2900

== ENCOUNTER → 2020-04-17 | Outpatient (CLI) | payer BC ==
[~2020-04-17] MED LIST changes: +COLA100C5 PO; -LIDOCAINE 1% MDV 20ML VIAL SQ PRN; -LR 1,000 ML IV ONE; -MONT10TA4 PO; +MONT5TAB2 PO; +ONDA4TAB6 PO; -ceFAZolin SOD 2 GM in IV 1 EA IV ONE
--- NOTE | 2020-04-17 17:07 | REP ---
INDICATION: N18.2 CHRONIC KIDNEY DX/R80.9/PROTEINURIA/LUPUS/M32.10. COMPARISON: Comparison CT study January 26, 2020.. TECHNIQUE: Urinary tract sonography. FINDINGS: Scanning at the level of the urinary bladder shows no abnormality. Prevoid bladder volume is calculated at 112 mL. Postvoid volume is calculated at 27 mL. Emptying ureteral jets are confirmed bilaterally on color Doppler interrogation of the bladder lumen. Exam quality is inhibited some degree by patient body habitus and bowel gas. Renal cortical echogenicity pattern is normal bilaterally and contours are smooth. There is no evidence of hydronephrosis, cyst, mass, or calculus in either kidney. The right kidney measures 12.4 x 3.5 x 3.9 cm. Left renal dimensions are 12.7 x 3.9 x 5.5 cm. Doppler resistive indices in the intralobar arteries are 0.55 on the right and 0.56 on the left. These values are normal. IMPRESSION: Normal urinary tract sonography. <Electronically signed by Amado Chaudhry > 04/17/20 [id number]
== END ==
LOC: M WHC 14:28
PROVIDERS: ATTEND Internal Medicine Nephrology
DX: N18.2 Chronic kidney disease, stage 2 (mild) (principal); R80.9 Proteinuria, unspecified; M32.10 Systemic lupus erythematosus, organ or system involvement unspecified; E11.22 Type 2 diabetes mellitus with diabetic chronic kidney disease

== ENCOUNTER → 2020-06-13 | Outpatient (REF) | payer BC ==
[~2020-06-13] MED LIST changes: -LISI-542 PO; +LISI-898 PO; +MONT10TA10 PO; -MONT5TAB2 PO
[2020-06-13 14:16] LABS: HEMOGLOBIN A1c 6.5 %
[2020-06-13 14:34] LABS: FREE T4 0.97 NG/DL (0.76-1.46); THYROID STIMULATING HORMONE 1.42 uIU/ML (0.358-3.740)
[2020-06-13 14:41] LABS: TOTAL 25(OH) VITAMIN D 97.6 NG/ML (30.0-100.0)
== END ==
LOC: M SFHCPLAZ 10:11
PROVIDERS: ATTEND Family Medicine
DX: E04.1 Nontoxic single thyroid nodule (principal); E11.65 Type 2 diabetes mellitus with hyperglycemia; E55.9 Vitamin D deficiency, unspecified

== ENCOUNTER → 2020-07-03 | Outpatient (CLI) | payer BC ==
[2020-07-03 16:10] LABS: FREE T4 0.86 NG/DL (0.76-1.46); RHEUMATOID FACTOR QUANT < 10.0 IU/ML (<15.0); TOTAL PROTEIN 7.7 GM/DL (6.4-8.2)
[2020-07-03 16:11] LABS: VITAMIN B12 LEVEL 1332 PG/ML
[2020-07-03 16:12] LABS: FOLATE 19.5 NG/ML
[2020-07-04 09:04] LABS: ALBUMIN 4.32 GM/DL (3.29-5.55); ALBUMIN % 56.1 % (55.8-66.1); ALPHA-1-GLOBULIN % 4.5 % (2.9-4.9); ALPHA-1-GLOBULINS 0.35 GM/DL (0.17-0.41); ALPHA-2-GLOBULINS 0.88 GM/DL (0.42-0.99); ALPHA-2-GLOBULINS % 11.4 % (7.1-11.8); BETA-1-GLOBULINS 0.44 GM/DL (0.28-0.60); BETA-1-GLOBULINS % 5.7 % (4.7-7.2); BETA-2-GLOBULINS 0.45 GM/DL (0.19-0.55); BETA-2-GLOBULINS % 5.8 % (3.2-6.5); GAMMA GLOBULIN % 16.5 % (11.1-18.8); GAMMA GLOBULINS 1.27 GM/DL (0.65-1.58)
== END ==
LOC: M PLALAB 13:08
PROVIDERS: ATTEND Psychiatry & Neurology Neurology
DX: M54.2 Cervicalgia (principal); M54.5 Low back pain

== ENCOUNTER → 2020-07-14 | Outpatient (REF) | payer BC ==
[2020-07-14 16:39] LABS: AMORPHOUS SEDIMENT SMALL (NEGATIVE); APPEARANCE, URINE HAZY (CLEAR); BACTERIA, URINE AUTO NEGATIVE (NEGATIVE); BILIRUBIN, URINE AUTO NEGATIVE (NEGATIVE); BLOOD, URINE BLOOD 1+ (NEGATIVE); COLOR, URINE STRAW (YELLOW); GLUCOSE, URINE (UA) AUTO NEGATIVE (NEGATIVE); KETONE, URINE AUTO NEGATIVE (NEGATIVE); LEUKOCYTE ESTERASE, URINE AUTO TRACE (NEGATIVE); NITRITE, URINE AUTO NEGATIVE (NEGATIVE); PROTEIN, URINE AUTO NEGATIVE (NEGATIVE); RBC, URINE AUTO 2 /HPF (0-3); SPECIFIC GRAVITY URINE AUTO 1.003 (1.002-1.035); SQUAMOUS EPITHELIAL CELL UR AU 5 /HPF (0-6); UROBILINOGEN, URINE AUTO 0.2 mg/dL (0.0-2.0); WBC, URINE AUTO 1 /HPF (0-3)
== END ==
LOC: M LAB REF 16:17
PROVIDERS: ATTEND Physician Assistant Medical
DX: N39.0 Urinary tract infection, site not specified (principal)

== ENCOUNTER 2020-12-04 12:48 | Emergency (ER) | payer BC ==
[~2020-12-04] VITALS: Ht 165.1 cm; Wt 97.1 kg
[~2020-12-04 12:48] MED LIST changes: -DOXY100C37 PO; +DOXY1CAP62 PO; +ERGO500029 PO
[2020-12-04] MEDS ORDERED: AMIT10TA7 PO (15:56)
[2020-12-04] MEDS ORDERED: ACETAMINOPHEN 500 MG TAB PO ONE (17:05)
[2020-12-04] MEDS ORDERED: methocarbamoL 750 MG TAB PO ONE (17:05)
[2020-12-04] MEDS ORDERED: LIDOCAINE 5% (LIDODERM) PATCH TD ONE (17:05)
--- NOTE | 2020-12-04 18:17 | REP ---
INDICATION: FELL OFF HORSE, pt tender. COMPARISON: None. TECHNIQUE: Five views FINDINGS: Five views of the lumbosacral spine show no acute fracture, dislocation or subluxation. The intervertebral disc spaces are symmetric and well maintained. There is no spondylolysis or spondylolisthesis. The pedicles are intact bilaterally and there is no destructive osseous lesion. IMPRESSION: Unremarkable lumbosacral spine series. <Electronically signed by Ra Bowie > 12/04/20 [id number]
[2020-12-04] MEDS ORDERED: PRED20TA PO (18:31)
[2020-12-04] MEDS ORDERED: ASPE4PAD TOP (18:31)
[2020-12-04] MEDS ORDERED: METH-1165 PO (18:31)
[2020-12-04 18:35] VITALS: BP 133/89
[2020-12-04] MEDS ORDERED: predniSONE 20 MG TAB PO ONE (18:35)
[2020-12-04] MEDS ORDERED: **NOTE PATIENT COMMENT** MISC XX SCH (21:00)
== END 2020-12-04 18:42 | disposition home or self-care (01) ==
LOC: M ED 12:48
DX: S39.92XA Unspecified injury of lower back, initial encounter (principal); V80.010A Animal-rider injured by fall from or being thrown from horse in noncollision accident, initial encounter; Z88.1 Allergy status to other antibiotic agents; Z88.2 Allergy status to sulfonamides; Z88.6 Allergy status to analgesic agent; E11.9 Type 2 diabetes mellitus without complications; I12.9 Hypertensive chronic kidney disease with stage 1 through stage 4 chronic kidney disease, or unspecified chronic kidney disease; M32.9 Systemic lupus erythematosus, unspecified; Z79.899 Other long term (current) drug therapy
CPT/HCPCS: 72110; 99283; J7512

== ENCOUNTER → 2021-01-26 | Outpatient (CLI) | payer BC ==
[~2021-01-26] MED LIST changes: +AMIT10TA7 PO; +ASPE4PAD TOP; +METH-1165 PO
[2021-01-26 18:01] LABS: HEMOGLOBIN A1c 7.1 %
== END ==
LOC: M LAB 16:21
PROVIDERS: ATTEND Family Medicine
DX: E11.65 Type 2 diabetes mellitus with hyperglycemia (principal)

== ENCOUNTER → 2021-01-26 | Outpatient (CLI) | payer BC ==
[2021-01-26 17:28] LABS: FREE T4 0.88 NG/DL (0.76-1.46); THYROID STIMULATING HORMONE 1.62 uIU/ML (0.358-3.740)
--- NOTE | 2021-01-28 09:16 | REP ---
INDICATION: THYROID NODULE/LABS 1ST, US 2ND COMPARISON: 07/25/2018 TECHNIQUE: Stewart scale and color evaluation of the thyroid gland using the linear high frequency transducer. FINDINGS: Right thyroid lobe measures 3.7 x 1.5 x 1.1 cm without obvious cyst or mass lesion/nodule. Isthmus measures 2 mm in width. Left thyroid lobe measures 3.1 x 1.6 x 1.3 cm and includes solid vascular isoechoic nodule measuring 1.3 x 1.0 x 1.0 cm minimally increased in size from prior examination IMPRESSION: 1. Mildly increased left thyroid nodule TI-RADS 4. Consider FNA for confirmation and definitive diagnosis. <Electronically signed by Isai Novoa > 01/28/21 [id number]
== END ==
LOC: M RAD 16:13
PROVIDERS: ATTEND Internal Medicine Endocrinology, Diabetes & Metabolism
DX: E04.1 Nontoxic single thyroid nodule (principal)

== ENCOUNTER → 2021-02-02 | Outpatient (REF) | payer BC | LOC: M LAB REF 21:15 | PROVIDERS: ATTEND Physician Assistant Medical | DX: R05.9 Cough, unspecified (principal); R50.9 Fever, unspecified ==

== ENCOUNTER 2021-02-07 11:50 | Emergency (ER) | payer BC ==
[~2021-02-07] VITALS: Ht 165.1 cm; Wt 100.1 kg
[2021-02-07] MEDS ORDERED: COMBIVENT RESPIMAT 100-20MCG INHALER 4GM INH ONE (13:45)
[2021-02-07 13:46] LABS: BASO % 0.5 % (0.0-1.0); EOS # 0.2 10^3/uL (0.0-0.5); EOS % 2.2 % (0.0-3.0); HEMATOCRIT 41.2 % (36.0-47.0); LYMPH # 2.2 10^3/uL (1.5-5.0); LYMPH % 27.6 % (24.0-44.0); MEAN CORPUSCULAR HEMOGLOBIN 31.3 pg (27.0-33.0); MONO # 0.6 10^3/uL (0.0-0.8); PLATELET COUNT, AUTOMATED 237 10^3/uL (150-450); RED BLOOD COUNT 4.48 10^6/uL (4.00-5.40); WHITE BLOOD COUNT 8.1 10^3/uL (4.0-10.0)
[2021-02-07 14:16] LABS: ALBUMIN 3.4 GM/DL (3.2-5.2); ALT/SGPT 41 U/L (12-78); BILIRUBIN,DIRECT < 0.1 MG/DL (0.0-0.2); BILIRUBIN,TOTAL 0.3 MG/DL (0.2-1.0); BLOOD UREA NITROGEN 7 MG/DL (7-18); CALCIUM LEVEL 9.2 MG/DL (8.5-10.1); CARBON DIOXIDE LEVEL 26 MEQ/L (21-32); CHLORIDE LEVEL 103 MEQ/L (98-107); CK-MB VALUE MASS < 1.0 NG/ML (<3.6); CPK CREATINE PHOSPHOKINASE 97 U/L (26-192); CREATININE FOR GFR 0.64 MG/DL (0.55-1.30); FREE T4 0.82 NG/DL (0.76-1.46); GLOMERULAR FILTRATION RATE > 60.0 (>60); GLUCOSE, FASTING 203 MG/DL (70-100); MB/CK RELATIVE INDEX 1.03 (< OR =4); NT-PRO BNP 22 PG/ML (<125); SODIUM LEVEL 136 MEQ/L (136-145); TOTAL PROTEIN 7.8 GM/DL (6.4-8.2); TROPONIN I < 0.02 NG/ML (< 0.10)
[2021-02-07] MEDS ORDERED: ISOVUE-370 76% 100ML VIAL As Ordered ONE (14:37)
[2021-02-07] MEDS ORDERED: IPRATROPIUM 0.5MG/ALBUTEROL 2.5MG INH SOL UD 3ML (DUONEB) NEB ONE (14:55)
--- NOTE | 2021-02-07 14:56 | REP ---
INDICATION: chest pain sob COMPARISON: 08/12/2014 TECHNIQUE: Axial contrast enhanced images from the thoracic inlet to the upper abdomen using pulmonary embolus technique with multiplanar re-formations. 75 ml Isovue 370 intravenous contrast material administered without complication. This CT examination was performed using the following dose reduction techniques: Automated exposure control, adjustment of mA and/or kv according to the patient's size, and use of iterative reconstruction technique. FINDINGS: Satisfactory enhancement of the pulmonary vasculature is achieved and no filling defects are identified to suggest pulmonary embolus. Further evaluation of the mediastinum demonstrates normal thoracic aorta, heart and pericardium. The bilateral lung davis are well aerated and clear without consolidation pleural effusion or pneumothorax. Tracheobronchial tree is patent. No nodule or mass lesion is identified. No adenopathy noted. Surrounding musculoskeletal structures intact Upper abdomen demonstrates normal bilateral adrenal glands and hepatosteatosis with presumed hepatomegaly. IMPRESSION: No evidence for pulmonary embolus. No acute mediastinal or pleural parenchymal process. <Electronically signed by Isai Novoa > 02/07/21 [id number]
[2021-02-07] MEDS ORDERED: PRED20TA PO (16:05)
[2021-02-07] MEDS ORDERED: predniSONE 20 MG TAB PO ONE (16:05)
[2021-02-07] MEDS ORDERED: VENTAER INH (16:06)
[2021-02-07 16:38] VITALS: BP 123/96
--- NOTE | 2021-02-07 19:41 | ECGEPIP ---
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
== END 2021-02-07 16:30 | disposition home or self-care (01) ==
LOC: M ED 11:50
DX: B34.8 Other viral infections of unspecified site (principal); R06.02 Shortness of breath; R05.9 Cough, unspecified; M79.10 Myalgia, unspecified site; J45.909 Unspecified asthma, uncomplicated; K58.8 Other irritable bowel syndrome; K21.9 Gastro-esophageal reflux disease without esophagitis; E78.5 Hyperlipidemia, unspecified; E55.9 Vitamin D deficiency, unspecified; M32.9 Systemic lupus erythematosus, unspecified; R09.1 Pleurisy; Z88.1 Allergy status to other antibiotic agents; Z88.2 Allergy status to sulfonamides; Z88.6 Allergy status to analgesic agent; Z88.8 Allergy status to other drugs, medicaments and biological substances; Z79.899 Other long term (current) drug therapy
CPT/HCPCS: 36415; 71275; 80048; 80076; 82550; 82553; 83880; 84439; 84443; 84484; 85025; 93005; 93041; 94640; 99284; J7512; Q9967

== ENCOUNTER 2021-03-30 06:45 | Outpatient (RCR) ==
[~2021-03-30 06:45] MED LIST changes: +DOXY-443 PO; -DOXY1CAP62 PO; +VENTAER INH
== END 2021-03-30 15:00 | disposition home or self-care (01) ==
LOC: M EMPSHH 06:45
PROVIDERS: ATTEND Pediatrics
DX: Z11.52 Encounter for screening for COVID-19 (principal)

== ENCOUNTER → 2021-07-30 | Outpatient (REF) | payer BC ==
[~2021-07-30] MED LIST changes: -D31000TA2 PO; +L-LY500T23 PO; -L-LY500T9 PO; -LISI-898 PO; +LISI5TAB11 PO; -MONT10TA10 PO; +MONT10TA97 PO; +VITA100093 PO
[2021-07-30 17:58] LABS: URINE TOTAL PROTEIN 188.5 MG/DL (0-12)
[2021-07-30 18:59] LABS: TOTAL PROTEIN 24 HOUR URINE 2073.5 MG/24HR (50-150)
== END ==
LOC: M LAB REF 17:10
PROVIDERS: ATTEND Internal Medicine Nephrology
DX: R80.9 Proteinuria, unspecified (principal)

== ENCOUNTER → 2021-09-09 | Outpatient (CLI) | payer BC ==
[2021-09-09 17:54] LABS: HEMATOCRIT 37.2 % (36.0-47.0); MEAN CORPUSCULAR HEMOGLOBIN 31.7 pg (27.0-33.0); MEAN CORPUSCULAR HGB CONC 34.9 g/dl (32.0-36.5); MEAN CORPUSCULAR VOLUME 90.7 fl (80.0-96.0); PLATELET COUNT, AUTOMATED 280 10^3/uL (150-450); WHITE BLOOD COUNT 8.6 10^3/uL (4.0-10.0)
[2021-09-09 17:55] LABS: APPEARANCE, URINE CLEAR (CLEAR); BACTERIA, URINE AUTO NEGATIVE (NEGATIVE); BILIRUBIN, URINE AUTO NEGATIVE (NEGATIVE); BLOOD, URINE BLOOD NEGATIVE (NEGATIVE); COLOR, URINE YELLOW (YELLOW); GLUCOSE, URINE (UA) AUTO 3+ mg/dL (NEGATIVE); KETONE, URINE AUTO NEGATIVE (NEGATIVE); LEUKOCYTE ESTERASE, URINE AUTO NEGATIVE (NEGATIVE); NITRITE, URINE AUTO NEGATIVE (NEGATIVE); PROTEIN, URINE AUTO 2+ mg/dL (NEGATIVE); RBC, URINE AUTO 0 /HPF (0-3); SPECIFIC GRAVITY URINE AUTO 1.016 (1.002-1.035); SQUAMOUS EPITHELIAL CELL UR AU 2 /HPF (0-6); UROBILINOGEN, URINE AUTO 0.2 mg/dL (0.0-2.0); WBC, URINE AUTO 3 /HPF (0-3)
[2021-09-09 18:16] LABS: BLOOD UREA NITROGEN 10 MG/DL (7-18); CALCIUM LEVEL 9.2 MG/DL (8.5-10.1); CARBON DIOXIDE LEVEL 29 MEQ/L (21-32); CHLORIDE LEVEL 101 MEQ/L (98-107); CREATININE FOR GFR 0.64 MG/DL (0.55-1.30); GLOMERULAR FILTRATION RATE > 60.0 (>60); GLUCOSE, FASTING 180 MG/DL (70-100); POTASSIUM SERUM 3.7 MEQ/L (3.5-5.1); SODIUM LEVEL 136 MEQ/L (136-145)
== END ==
LOC: M LAB 16:56
PROVIDERS: ATTEND Specialist
DX: N39.3 Stress incontinence (female) (male) (principal)

== ENCOUNTER → 2021-09-09 | Outpatient (CLI) | payer BC ==
[~2021-09-09] MED LIST changes: +ACET-683 PO; +CRAN1CAP11 PO; +DIPH50CA PO; +HYDR200T3 PO; +LISI10TA22 PO; +MULT-40 PO; +NORT10CA2 PO
[2021-09-11 12:09] LABS: ANTINUCLEAR ANTIBODIES DIRECT Negative (Negative); SJOGREN'S ANTI SS-A <0.2 AI (0.0-0.9); SJOGREN'S ANTI SS-B 0.7 AI (0.0-0.9)
== END ==
LOC: M LAB 16:54
PROVIDERS: ATTEND Internal Medicine Rheumatology
DX: M32.9 Systemic lupus erythematosus, unspecified (principal)

== ENCOUNTER → 2021-09-14 | Outpatient (CLI) | payer BC | LOC: M LABSMTC 10:30 | PROVIDERS: ATTEND Anesthesiology | DX: Z01.812 Encounter for preprocedural laboratory examination (principal); Z20.822 Contact with and (suspected) exposure to COVID-19 ==

== ENCOUNTER 2021-09-18 05:58 | Day surgery (SDC) | payer BC ==
[~2021-09-18] VITALS: Ht 165.1 cm; Wt 95.3 kg
[2021-09-18] VITALS (8 sets, daily range): BP systolic 96–122; BP diastolic 57–79
[2021-09-18] MEDS ORDERED: LIDOCAINE 1% MDV 20ML VIAL SQ PRN (06:00)
[2021-09-18] MEDS ORDERED: LR 1,000 ML IV ONE (06:00)
[2021-09-18] MEDS ORDERED: BUPIVACAINE/EPIN 0.25% 30 ML VIAL As Ordered ONE (07:10)
[2021-09-18] MEDS ORDERED: ESTROGENS VAGINAL CREAM 30GM As Ordered ONE (07:11)
[2021-09-18] MEDS ORDERED: INDOCYANINE GREEN 25MG VIAL (IC-GREEN) As Ordered ONE (07:11)
[2021-09-18] MEDS ORDERED: METHYLENE BLUE 0.5% (5MG/ML) 10 ML AMP (PROVAYBLUE) As Ordered ONE (07:13)
[2021-09-18] MEDS ORDERED: GENTAMICIN SULF 80MG/2ML VIAL As Ordered ONE (07:14)
[2021-09-18] MEDS ORDERED: LIDOCAINE 1% SDV 30ML VIAL As Ordered ONE (07:19)
[2021-09-18] MEDS ORDERED: BUPIVACAINE HCL 0.25% 30ML VIAL As Ordered ONE (07:20)
[2021-09-18] MEDS ORDERED: SCOPOLAMINE 1MG TRANSDERMAL PATCH TOP ONE (07:30)
[2021-09-18] MEDS ORDERED: ceFAZolin 1GM VIAL (J0690 PER 500MG) As Ordered ONE ×2 (07:54→07:56)
[2021-09-18] MEDS ORDERED: MIDAZOLAM INJ 2MG/2ML VIAL (J2250 PER 1MG) As Ordered ONE (08:03)
[2021-09-18] MEDS ORDERED: ROCURONIUM BROMIDE 50 MG/5 ML VIAL As Ordered ONE ×2 (08:03→09:04)
[2021-09-18] MEDS ORDERED: fentaNYL 250 MCG/5 ML INJECTION As Ordered ONE (08:03)
[2021-09-18] MEDS ORDERED: ONDANSETRON 4MG/2ML VIAL As Ordered ONE (08:03)
[2021-09-18] MEDS ORDERED: LIDOCAINE 2% 100MG/5ML SDV (FOR ANES.) As Ordered ONE (08:03)
[2021-09-18] MEDS ORDERED: propofoL 200 MG/20 ML VIAL As Ordered ONE (08:03)
[2021-09-18] MEDS ORDERED: dexameTHASONE 4 MG/ML 1ML VIAL (J1100 PER 1MG) As Ordered ONE (08:03)
[2021-09-18] MEDS ORDERED: SUGAMMADEX SODIUM 500 MG/5 ML VIAL (BRIDION) As Ordered ONE (09:06)
[2021-09-18] MEDS ORDERED: zolPIDEM TARTRATE 5 MG TAB PO PRN (11:05)
[2021-09-18] MEDS ORDERED: ONDA-83 PO (11:22)
[2021-09-18] MEDS ORDERED: PERCOCET PO (11:22)
[2021-09-18] MEDS ORDERED: fentaNYL 100 MCG/2 ML INJECTION IV PRN (11:25)
[2021-09-18] MEDS ORDERED: LR 1,000 ML IV SCH (11:25)
[2021-09-18] MEDS ORDERED: ONDANSETRON 4MG/2ML VIAL IV PRN (11:25)
[2021-09-18] MEDS ORDERED: oxyCODONE 5MG TAB PO PRN (11:25)
[2021-09-18] MEDS: ONDANSETRON 4MG TAB PO PRN ×2 (14:44→20:25)
[2021-09-18] MEDS: PERCOCET 5MG/325MG TAB PO PRN ×2 (14:45→20:26)
[2021-09-19] MEDS: ONDANSETRON 4MG TAB PO PRN ×3 (01:47→13:49)
[2021-09-19] MEDS: PERCOCET 5MG/325MG TAB PO PRN ×3 (01:48→13:50)
[2021-09-19 02:00] VITALS: BP 106/62
[2021-09-19 06:00] VITALS: BP 106/62
[2021-09-19 07:01] LABS: HEMATOCRIT 31.4 % (36.0-47.0); HEMOGLOBIN 10.9 g/dl (12.0-15.5); MEAN CORPUSCULAR HEMOGLOBIN 32.2 pg (27.0-33.0); MEAN CORPUSCULAR HGB CONC 34.7 g/dl (32.0-36.5); MEAN CORPUSCULAR VOLUME 92.6 fl (80.0-96.0); PLATELET COUNT, AUTOMATED 293 10^3/uL (150-450); RED BLOOD COUNT 3.39 10^6/uL (4.00-5.40); WHITE BLOOD COUNT 13.7 10^3/uL (4.0-10.0)
[2021-09-19 07:12] LABS: BLOOD UREA NITROGEN 9 MG/DL (7-18); CALCIUM LEVEL 9.5 MG/DL (8.5-10.1); CARBON DIOXIDE LEVEL 27 MEQ/L (21-32); CHLORIDE LEVEL 104 MEQ/L (98-107); CREATININE FOR GFR 0.59 MG/DL (0.55-1.30); GLOMERULAR FILTRATION RATE > 60.0 (>60); GLUCOSE, FASTING 210 MG/DL (70-100); POTASSIUM SERUM 4.3 MEQ/L (3.5-5.1); SODIUM LEVEL 140 MEQ/L (136-145)
[2021-09-19 10:00] VITALS: BP 106/61
== END 2021-09-19 14:45 | disposition home or self-care (01) ==
LOC: M SDC 05:58 → M MS5PR 12:00 → M SDC 09-19 14:45
PROVIDERS: ATTEND Specialist
DX: N81.9 Female genital prolapse, unspecified (principal); N39.3 Stress incontinence (female) (male); E11.9 Type 2 diabetes mellitus without complications; G47.33 Obstructive sleep apnea (adult) (pediatric); E78.5 Hyperlipidemia, unspecified; E05.90 Thyrotoxicosis, unspecified without thyrotoxic crisis or storm; E04.9 Nontoxic goiter, unspecified; K58.8 Other irritable bowel syndrome; K76.0 Fatty (change of) liver, not elsewhere classified; K21.9 Gastro-esophageal reflux disease without esophagitis; M32.9 Systemic lupus erythematosus, unspecified; G43.909 Migraine, unspecified, not intractable, without status migrainosus; Z79.899 Other long term (current) drug therapy; Z79.84 Long term (current) use of oral hypoglycemic drugs; Z79.51 Long term (current) use of inhaled steroids; F32.A Depression, unspecified; F41.9 Anxiety disorder, unspecified; Z88.5 Allergy status to narcotic agent; Z88.2 Allergy status to sulfonamides; Z88.1 Allergy status to other antibiotic agents; Z88.8 Allergy status to other drugs, medicaments and biological substances
CPT/HCPCS: 36415; 57260; 57283; 57288; 80048; 85027; C1762; C1771; J0690; J1100; J1580; J2250; J2405; J3010; Q9968

== ENCOUNTER → 2021-10-02 | Outpatient (CLI) | payer BC ==
[~2021-10-02] MED LIST changes: +PERCOCET PO
[2021-10-02 11:52] LABS: CHOLESTEROL RISK RATIO 3.093 (<5)
== END ==
LOC: M PLALAB 09:11
PROVIDERS: ATTEND Family Medicine
DX: E78.2 Mixed hyperlipidemia (principal)

== ENCOUNTER → 2021-10-08 | Outpatient (REF) | payer BC ==
[2021-10-08 19:37] LABS: APPEARANCE, URINE HAZY (CLEAR); BACTERIA, URINE AUTO 1+ (NEGATIVE); BILIRUBIN, URINE AUTO NEGATIVE (NEGATIVE); BLOOD, URINE BLOOD NEGATIVE (NEGATIVE); COLOR, URINE YELLOW (YELLOW); GLUCOSE, URINE (UA) AUTO 1+ mg/dL (NEGATIVE); KETONE, URINE AUTO 1+ mg/dL (NEGATIVE); LEUKOCYTE ESTERASE, URINE AUTO 1+ (NEGATIVE); MUCUS, URINE SMALL (NEGATIVE); NITRITE, URINE AUTO NEGATIVE (NEGATIVE); PROTEIN, URINE AUTO 3+ mg/dL (NEGATIVE); RBC, URINE AUTO 2 /HPF (0-3); SPECIFIC GRAVITY URINE AUTO 1.029 (1.002-1.035); SQUAMOUS EPITHELIAL CELL UR AU 2 /HPF (0-6); UROBILINOGEN, URINE AUTO 0.2 mg/dL (0.0-2.0); WBC, URINE AUTO 31 /HPF (0-3)
== END ==
LOC: M SMT 19:13
PROVIDERS: ATTEND Nurse Practitioner Women's Health
DX: R30.0 Dysuria (principal)

== ENCOUNTER → 2022-01-05 | Outpatient (REF) | payer BC | LOC: M LAB REF 20:17 | PROVIDERS: ATTEND Physician Assistant Medical | DX: A04.72 Enterocolitis due to Clostridium difficile, not specified as recurrent (principal); R10.9 Unspecified abdominal pain ==

== ENCOUNTER → 2022-01-05 | Outpatient (REF) | LOC: M LABSMTC 11:38 | PROVIDERS: ATTEND Family Medicine | DX: Z20.822 Contact with and (suspected) exposure to COVID-19 (principal) ==

== ENCOUNTER → 2022-02-05 | Outpatient (REF) | payer BC ==
[2022-02-05 17:58] LABS: ALBUMIN 3.7 GM/DL (3.2-5.2); ALT/SGPT 35 U/L (12-78); BILIRUBIN,TOTAL 0.4 MG/DL (0.2-1.0); BLOOD UREA NITROGEN 12 MG/DL (7-18); CALCIUM LEVEL 9.7 MG/DL (8.5-10.1); CARBON DIOXIDE LEVEL 28 MEQ/L (21-32); CHLORIDE LEVEL 95 MEQ/L (98-107); CREATININE FOR GFR 0.75 MG/DL (0.55-1.30); FREE T3 3.2 PG/ML (2.2-4.0); FREE T4 0.85 NG/DL (0.76-1.46); GLOMERULAR FILTRATION RATE > 60.0 (>60); GLUCOSE, FASTING 276 MG/DL (70-100); POTASSIUM SERUM 3.9 MEQ/L (3.5-5.1); SODIUM LEVEL 132 MEQ/L (136-145); TOTAL PROTEIN 7.8 GM/DL (6.4-8.2)
[2022-02-05 18:19] LABS: TESTOSTERONE 19 NG/DL (14-76)
[2022-02-05 18:21] LABS: PROGESTERONE 0.21 NG/ML
[2022-02-05 18:22] LABS: THYROID PEROXIDASE ANTIBODY 43.2 U/ML (<60.0)
== END ==
LOC: M PLALAB 16:45
PROVIDERS: ATTEND Physician Assistant
DX: M32.9 Systemic lupus erythematosus, unspecified (principal); R63.5 Abnormal weight gain; E11.65 Type 2 diabetes mellitus with hyperglycemia

== ENCOUNTER → 2022-02-15 | Outpatient (CLI) | payer BC | LOC: M WHC 08:25 | PROVIDERS: ATTEND Physician Assistant | DX: E04.1 Nontoxic single thyroid nodule (principal) ==

== ENCOUNTER → 2022-04-30 | Outpatient (REF) ==
[2022-04-30 10:05] LABS: RSV AMPLIFICATION NEGATIVE (NEGATIVE)
== END ==
LOC: M EMP 09:02
PROVIDERS: ATTEND Family Medicine
DX: Z20.818 Contact with and (suspected) exposure to other bacterial communicable diseases (principal)

== ENCOUNTER → 2022-05-27 | Outpatient (REF) | LOC: M EMP 08:10 | PROVIDERS: ATTEND Family Medicine | DX: Z11.52 Encounter for screening for COVID-19 (principal) ==

== ENCOUNTER → 2022-06-01 | Outpatient (REF) | LOC: M EMP 08:19 | PROVIDERS: ATTEND Family Medicine | DX: Z11.52 Encounter for screening for COVID-19 (principal) ==

== ENCOUNTER → 2022-06-25 | Outpatient (REF) | payer BC | LOC: M SFHCDERM 16:58 | PROVIDERS: ATTEND Nurse Practitioner Family | DX: D22.5 Melanocytic nevi of trunk (principal) ==

== ENCOUNTER → 2022-07-07 | Outpatient (REF) | payer BC ==
[2022-07-08 11:08] LABS: APPEARANCE, URINE CLOUDY (CLEAR); BACTERIA, URINE AUTO NEGATIVE (NEGATIVE); BILIRUBIN, URINE AUTO NEGATIVE (NEGATIVE); BLOOD, URINE BLOOD NEGATIVE (NEGATIVE); COLOR, URINE YELLOW (YELLOW); GLUCOSE, URINE (UA) AUTO 2+ mg/dL (NEGATIVE); KETONE, URINE AUTO TRACE mg/dL (NEGATIVE); LEUKOCYTE ESTERASE, URINE AUTO 2+ (NEGATIVE); MUCUS, URINE SMALL (NEGATIVE); NITRITE, URINE AUTO NEGATIVE (NEGATIVE); PROTEIN, URINE AUTO 3+ mg/dL (NEGATIVE); RBC, URINE AUTO 6 /HPF (0-3); SPECIFIC GRAVITY URINE AUTO 1.022 (1.002-1.035); SQUAMOUS EPITHELIAL CELL UR AU 18 /HPF (0-6); UROBILINOGEN, URINE AUTO 0.2 mg/dL (0.0-2.0); WBC, URINE AUTO 42 /HPF (0-3)
== END ==
LOC: M SMT 10:39
PROVIDERS: ATTEND Specialist
DX: R30.0 Dysuria (principal)

== ENCOUNTER → 2022-07-27 | Outpatient (CLI) | payer BC | LOC: M RAD 13:15 | PROVIDERS: ATTEND Specialist | DX: R31.9 Hematuria, unspecified (principal) ==

== ENCOUNTER → 2022-07-27 | Outpatient (CLI) | payer BC ==
[2022-07-27 15:43] LABS: BLOOD UREA NITROGEN 10 MG/DL (9-23); CALCIUM LEVEL 9.4 MG/DL (8.5-10.1); CARBON DIOXIDE LEVEL 31 MMOL/L (20-31); CHLORIDE LEVEL 102 MMOL/L (98-107); CREATININE FOR GFR 0.57 MG/DL (0.55-1.30); GLOMERULAR FILTRATION RATE > 60.0 (>60); GLUCOSE, FASTING 181 MG/DL (60-100); POTASSIUM SERUM 4.1 MMOL/L (3.5-5.1); SODIUM LEVEL 138 MMOL/L (136-145)
== END ==
LOC: M LAB 14:33
PROVIDERS: ATTEND Specialist
DX: R31.29 Other microscopic hematuria (principal)

== ENCOUNTER → 2022-07-29 | Outpatient (CLI) | payer BC ==
[~2022-07-29] MED LIST changes: +ISOVUE-370 76% 100ML VIAL As Ordered ONE
== END ==
LOC: M RAD 10:12
PROVIDERS: ATTEND Specialist
DX: R31.29 Other microscopic hematuria (principal)
CPT/HCPCS: 74178; Q9967

== ENCOUNTER → 2022-08-16 | Outpatient (REF) | payer BC ==
[~2022-08-16] MED LIST changes: -ISOVUE-370 76% 100ML VIAL As Ordered ONE
[2022-08-16 12:21] LABS: APPEARANCE, URINE HAZY (CLEAR); BACTERIA, URINE AUTO NEGATIVE (NEGATIVE); BILIRUBIN, URINE AUTO NEGATIVE (NEGATIVE); BLOOD, URINE BLOOD NEGATIVE (NEGATIVE); COLOR, URINE AMBER (YELLOW); GLUCOSE, URINE (UA) AUTO NEGATIVE (NEGATIVE); KETONE, URINE AUTO NEGATIVE (NEGATIVE); LEUKOCYTE ESTERASE, URINE AUTO NEGATIVE (NEGATIVE); MUCUS, URINE SMALL (NEGATIVE); NITRITE, URINE AUTO POSITIVE (NEGATIVE); PROTEIN, URINE AUTO 2+ mg/dL (NEGATIVE); RBC, URINE AUTO 1 /HPF (0-3); SPECIFIC GRAVITY URINE AUTO 1.023 (1.002-1.035); SQUAMOUS EPITHELIAL CELL UR AU 10 /HPF (0-6); WBC, URINE AUTO 5 /HPF (0-3)
== END ==
LOC: M SMT 11:41
PROVIDERS: ATTEND Specialist
DX: R30.0 Dysuria (principal)

== ENCOUNTER → 2022-09-13 | Outpatient (REF) | payer BC ==
[2022-09-13 12:36] LABS: APPEARANCE, URINE HAZY (CLEAR); BACTERIA, URINE AUTO 1+ (NEGATIVE); BILIRUBIN, URINE AUTO NEGATIVE (NEGATIVE); BLOOD, URINE BLOOD 3+ (NEGATIVE); COLOR, URINE AMBER (YELLOW); GLUCOSE, URINE (UA) AUTO NEGATIVE (NEGATIVE); KETONE, URINE AUTO NEGATIVE (NEGATIVE); LEUKOCYTE ESTERASE, URINE AUTO 2+ (NEGATIVE); MUCUS, URINE SMALL (NEGATIVE); NITRITE, URINE AUTO POSITIVE (NEGATIVE); PROTEIN, URINE AUTO 2+ mg/dL (NEGATIVE); RBC, URINE AUTO 44 /HPF (0-3); SPECIFIC GRAVITY URINE AUTO 1.009 (1.002-1.035); SQUAMOUS EPITHELIAL CELL UR AU 1 /HPF (0-6); WBC, URINE AUTO TNTC /HPF (0-3)
== END ==
LOC: M LABSMT 10:27
PROVIDERS: ATTEND Specialist
DX: N39.0 Urinary tract infection, site not specified (principal)

== ENCOUNTER → 2022-10-12 | Outpatient (REF) | payer BC ==
[~2022-10-12] MED LIST changes: -HYDR200T3 PO; +HYDR200T46 PO
[2022-10-12 22:59] LABS: APPEARANCE, URINE CLOUDY (CLEAR); BACTERIA, URINE AUTO 2+ (NEGATIVE); BILIRUBIN, URINE AUTO NEGATIVE (NEGATIVE); BLOOD, URINE BLOOD NEGATIVE (NEGATIVE); COLOR, URINE AMBER (YELLOW); GLUCOSE, URINE (UA) AUTO NEGATIVE (NEGATIVE); KETONE, URINE AUTO NEGATIVE (NEGATIVE); LEUKOCYTE ESTERASE, URINE AUTO 3+ (NEGATIVE); MUCUS, URINE SMALL (NEGATIVE); NITRITE, URINE AUTO NEGATIVE (NEGATIVE); PROTEIN, URINE AUTO 2+ mg/dL (NEGATIVE); RBC, URINE AUTO 6 /HPF (0-3); SPECIFIC GRAVITY URINE AUTO 1.024 (1.002-1.035); SQUAMOUS EPITHELIAL CELL UR AU 11 /HPF (0-6); WBC, URINE AUTO TNTC /HPF (0-3)
== END ==
LOC: M LAB REF 22:40
PROVIDERS: ATTEND Physician Assistant Medical
DX: N39.0 Urinary tract infection, site not specified (principal)

== ENCOUNTER → 2022-11-11 | Outpatient (REF) | payer BC ==
[2022-11-11 12:50] LABS: BASO % 0.4 % (0.0-1.0); EOS # 0.2 10^3/uL (0.0-0.5); EOS % 2.5 % (0.0-3.0); HEMATOCRIT 42.2 % (36.0-47.0); LYMPH # 2.4 10^3/uL (1.5-5.0); MEAN CORPUSCULAR HEMOGLOBIN 31.3 pg (27.0-33.0); MEAN CORPUSCULAR HGB CONC 33.2 g/dl (32.0-36.5); MEAN CORPUSCULAR VOLUME 94.4 fl (80.0-96.0); MONO # 0.8 10^3/uL (0.0-0.8); MONO % 9.4 % (2.0-8.0); NEUTROPHILS # 4.6 10^3/uL (1.5-8.5); NEUTROPHILS % 57.3 % (36.0-66.0); PLATELET COUNT, AUTOMATED 320 10^3/uL (150-450); RED BLOOD COUNT 4.47 10^6/uL (4.00-5.40); WHITE BLOOD COUNT 7.9 10^3/uL (4.0-10.0)
[2022-11-11 13:21] LABS: ALKALINE PHOSPHATASE 92 U/L (46-116); ALT/SGPT 18 U/L (7.0-40); AST/SGOT 11 U/L (<34); BILIRUBIN,TOTAL 0.6 MG/DL (0.3-1.2); BLOOD UREA NITROGEN 8 MG/DL (9-23); CALCIUM LEVEL 10.4 MG/DL (8.5-10.1); CARBON DIOXIDE LEVEL 27 MMOL/L (20-31); CHLORIDE LEVEL 100 MMOL/L (98-107); GLOMERULAR FILTRATION RATE > 60.0 (>60); GLUCOSE, FASTING 101 MG/DL (60-100); POTASSIUM SERUM 4.2 MMOL/L (3.5-5.1); SODIUM LEVEL 137 MMOL/L (136-145); THYROID STIMULATING HORMONE 1.183 uIU/ML (0.55-4.78); TOTAL PROTEIN 7.8 G/DL (5.7-8.2)
[2022-11-11 13:51] LABS: HEMOGLOBIN A1c 6.1 % (4.0-6.0)
== END ==
LOC: M LAB REF 11:47
PROVIDERS: ATTEND Physician Assistant
DX: E11.65 Type 2 diabetes mellitus with hyperglycemia (principal); E04.1 Nontoxic single thyroid nodule

== ENCOUNTER → 2023-01-18 | Outpatient (REF) | payer BC ==
[~2023-01-18] MED LIST changes: +LORA-1041 PO; -LORA-674 PO
[2023-01-18 13:34] LABS: APPEARANCE, URINE HAZY (CLEAR); BACTERIA, URINE AUTO 2+ (NEGATIVE); BILIRUBIN, URINE AUTO NEGATIVE (NEGATIVE); BLOOD, URINE BLOOD NEGATIVE (NEGATIVE); COLOR, URINE YELLOW (YELLOW); GLUCOSE, URINE (UA) AUTO NEGATIVE (NEGATIVE); KETONE, URINE AUTO NEGATIVE (NEGATIVE); LEUKOCYTE ESTERASE, URINE AUTO NEGATIVE (NEGATIVE); MUCUS, URINE SMALL (NEGATIVE); NITRITE, URINE AUTO NEGATIVE (NEGATIVE); PROTEIN, URINE AUTO 2+ mg/dL (NEGATIVE); RBC, URINE AUTO 0 /HPF (0-3); SQUAMOUS EPITHELIAL CELL UR AU 1 /HPF (0-6); UROBILINOGEN, URINE AUTO 0.2 mg/dL (0.0-2.0); WBC, URINE AUTO 4 /HPF (0-3)
== END ==
LOC: M LAB REF 12:10
PROVIDERS: ATTEND Physician Assistant Medical
DX: N39.0 Urinary tract infection, site not specified (principal)

== ENCOUNTER → 2023-01-20 | Outpatient (REF) | payer BC ==
[2023-01-20 19:00] LABS: BASO % 0.4 % (0.0-1.0); EOS # 0.1 10^3/uL (0.0-0.5); EOS % 1.5 % (0.0-3.0); HEMATOCRIT 38.7 % (36.0-47.0); HEMOGLOBIN 12.9 g/dl (12.0-15.5); LYMPH # 2.5 10^3/uL (1.5-5.0); LYMPH % 26.7 % (24.0-44.0); MEAN CORPUSCULAR HEMOGLOBIN 31.5 pg (27.0-33.0); MEAN CORPUSCULAR HGB CONC 33.3 g/dl (32.0-36.5); MEAN CORPUSCULAR VOLUME 94.6 fl (80.0-96.0); MONO # 0.7 10^3/uL (0.0-0.8); MONO % 7.9 % (2.0-8.0); NEUTROPHILS # 5.8 10^3/uL (1.5-8.5); NEUTROPHILS % 63.2 % (36.0-66.0); PLATELET COUNT, AUTOMATED 348 10^3/uL (150-450); RED BLOOD COUNT 4.09 10^6/uL (4.00-5.40); WHITE BLOOD COUNT 9.2 10^3/uL (4.0-10.0)
[2023-01-20 19:25] LABS: ALBUMIN 3.8 G/DL (3.2-5.2); ALKALINE PHOSPHATASE 88 U/L (46-116); ALT/SGPT 16 U/L (7.0-40); AST/SGOT 13 U/L (<34); BILIRUBIN,TOTAL 0.4 MG/DL (0.3-1.2); BLOOD UREA NITROGEN 9 MG/DL (9-23); CALCIUM LEVEL 9.4 MG/DL (8.5-10.1); CARBON DIOXIDE LEVEL 29 MMOL/L (20-31); CHLORIDE LEVEL 103 MMOL/L (98-107); CREATININE FOR GFR 0.52 MG/DL (0.55-1.30); GLOMERULAR FILTRATION RATE > 60.0 (>60); GLUCOSE, FASTING 115 MG/DL (60-100); SODIUM LEVEL 139 MMOL/L (136-145); TOTAL PROTEIN 7.3 G/DL (5.7-8.2)
[2023-01-20 19:28] LABS: ERYTHROCYTE SEDIMENTATION RATE 40 mm/hr (0-20)
== END ==
LOC: M SFHCPLAZ 17:13
PROVIDERS: ATTEND Physician Assistant
DX: N39.0 Urinary tract infection, site not specified (principal)

== ENCOUNTER → 2023-02-07 | Outpatient (REF) | payer BC ==
[2023-02-07 18:02] LABS: APPEARANCE, URINE HAZY (CLEAR); BACTERIA, URINE AUTO NEGATIVE (NEGATIVE); BILIRUBIN, URINE AUTO NEGATIVE (NEGATIVE); BLOOD, URINE BLOOD NEGATIVE (NEGATIVE); COLOR, URINE YELLOW (YELLOW); GLUCOSE, URINE (UA) AUTO NEGATIVE (NEGATIVE); KETONE, URINE AUTO NEGATIVE (NEGATIVE); LEUKOCYTE ESTERASE, URINE AUTO NEGATIVE (NEGATIVE); NITRITE, URINE AUTO NEGATIVE (NEGATIVE); PROTEIN, URINE AUTO 2+ mg/dL (NEGATIVE); RBC, URINE AUTO 0 /HPF (0-3); SPECIFIC GRAVITY URINE AUTO 1.019 (1.002-1.035); SQUAMOUS EPITHELIAL CELL UR AU 4 /HPF (0-6); UROBILINOGEN, URINE AUTO 0.2 mg/dL (0.0-2.0); WBC, URINE AUTO 0 /HPF (0-3)
== END ==
LOC: M SMT 16:58
PROVIDERS: ATTEND Physician Assistant
DX: R30.0 Dysuria (principal)

== ENCOUNTER → 2023-05-20 | Outpatient (CLI) | payer BC | LOC: M WHC 08:00 | PROVIDERS: ATTEND Student in an Organized Health Care Education/Training Program | DX: K82.8 Other specified diseases of gallbladder (principal) ==

== ENCOUNTER → 2023-06-24 | Outpatient (CLI) | payer BC | LOC: M RAD 07:43 | PROVIDERS: ATTEND Student in an Organized Health Care Education/Training Program | DX: K82.8 Other specified diseases of gallbladder (principal) | CPT/HCPCS: 78227; A9537 ==

== ENCOUNTER 2023-11-01 22:23 | Emergency (ER) | payer BC ==
[~2023-11-01] VITALS: Ht 165.1 cm; Wt 88.6 kg
[~2023-11-01 22:23] MED LIST changes: +DOXY-323 PO; -DOXY-443 PO; +ONDA-282 PO; -ONDA4TAB6 PO
[2023-11-01] MEDS: ONDANSETRON 4MG 2ML VIAL IV ONE (23:18)
[2023-11-01] MEDS: KETOROLAC 30 MG/ML 1ML VIAL IV ONE (23:18)
[2023-11-01] MEDS: NS 1,000 ML IV ONE (23:18)
[2023-11-01 23:38] LABS: BASO % 0.2 % (0.0-1.0); EOS # 0.1 10^3/uL (0.0-0.5); EOS % 0.4 % (0.0-3.0); HEMATOCRIT 42.7 % (36.0-47.0); LYMPH # 1.5 10^3/uL (1.5-5.0); LYMPH % 7.9 % (24.0-44.0); MEAN CORPUSCULAR HEMOGLOBIN 31.6 pg (27.0-33.0); MEAN CORPUSCULAR HGB CONC 35.1 g/dl (32.0-36.5); MEAN CORPUSCULAR VOLUME 90.1 fl (80.0-96.0); MONO # 0.9 10^3/uL (0.0-0.8); MONO % 4.9 % (2.0-8.0); NEUTROPHILS % 86.1 % (36.0-66.0); PLATELET COUNT, AUTOMATED 371 10^3/uL (150-450); RED BLOOD COUNT 4.74 10^6/uL (4.00-5.40); WHITE BLOOD COUNT 18.5 10^3/uL (4.0-10.0)
[2023-11-02 00:01] LABS: LIPASE 33 U/L (12-53)
[2023-11-02 00:02] LABS: ALBUMIN 3.9 G/DL (3.2-5.2); ALKALINE PHOSPHATASE 80 U/L (46-116); ALT/SGPT 20 U/L (7.0-40); AST/SGOT 12 U/L (<34); BILIRUBIN,TOTAL 0.9 MG/DL (0.3-1.2); BLOOD UREA NITROGEN 9 MG/DL (9-23); CALCIUM LEVEL 9.3 MG/DL (8.5-10.1); CARBON DIOXIDE LEVEL 26 MMOL/L (20-31); CHLORIDE LEVEL 101 MMOL/L (98-107); CREATININE FOR GFR 0.48 MG/DL (0.55-1.30); GLOMERULAR FILTRATION RATE > 60.0 (>60); GLUCOSE, FASTING 178 MG/DL (60-100); POTASSIUM SERUM 3.7 MMOL/L (3.5-5.1); SODIUM LEVEL 134 MMOL/L (136-145)
[2023-11-02] MEDS: NS 1,000 ML IV ONE (00:10)
[2023-11-02] MEDS ORDERED: ISOVUE-370 76% 100ML VIAL As Ordered ONE (00:29)
[2023-11-02] MEDS: diphenhydrAMINE 50MG/ML VIAL IV STA (01:06)
[2023-11-02] MEDS: methylPREDNISolone 125MG 2ML VIAL IV ONE (02:34)
[2023-11-02] MEDS ORDERED: PRED20TA PO (03:36)
[2023-11-02] MEDS ORDERED: ONDA-282 PO (03:36)
[2023-11-02 03:48] VITALS: BP 112/65; TEMP 97.8; O2SAT 97
== END 2023-11-02 03:50 | disposition home or self-care (01) ==
LOC: M ED 22:23 → EDBD 22:23 → M ED 11-02 03:50
DX: K52.9 Noninfective gastroenteritis and colitis, unspecified (principal); T78.40XA Allergy, unspecified, initial encounter; K21.9 Gastro-esophageal reflux disease without esophagitis; I10 Essential (primary) hypertension; F32.A Depression, unspecified; E78.5 Hyperlipidemia, unspecified; M54.50 Low back pain, unspecified; Z88.2 Allergy status to sulfonamides; Z88.1 Allergy status to other antibiotic agents; Z88.5 Allergy status to narcotic agent; Z88.6 Allergy status to analgesic agent; Z88.8 Allergy status to other drugs, medicaments and biological substances; Z91.048 Other nonmedicinal substance allergy status; Z79.52 Long term (current) use of systemic steroids; Z79.811 Long term (current) use of aromatase inhibitors; Z79.4 Long term (current) use of insulin; Z79.83 Long term (current) use of bisphosphonates; Z79.899 Other long term (current) drug therapy
CPT/HCPCS: 74177; 80053; 81001; 83690; 85025; 87486; 87581; 87633; 87798; 96361; 96374; 96375; 99284; J1200; J1885; J2405; J2919; Q9967

== ENCOUNTER → 2023-11-10 | Outpatient (CLI) | payer BC ==
[2023-11-10 10:44] LABS: HEMOGLOBIN A1c 5.9 % (4.0-6.0)
[2023-11-10 10:49] LABS: BASO # 0.1 10^3/uL (0.0-0.2); BASO % 0.9 % (0.0-1.0); EOS # 0.2 10^3/uL (0.0-0.5); EOS % 2.4 % (0.0-3.0); HEMATOCRIT 44.2 % (36.0-47.0); HEMOGLOBIN 14.1 g/dl (12.0-15.5); LYMPH # 3.4 10^3/uL (1.5-5.0); LYMPH % 33.6 % (24.0-44.0); MEAN CORPUSCULAR HEMOGLOBIN 31.6 pg (27.0-33.0); MEAN CORPUSCULAR HGB CONC 31.9 g/dl (32.0-36.5); MEAN CORPUSCULAR VOLUME 99.1 fl (80.0-96.0); MONO # 0.8 10^3/uL (0.0-0.8); MONO % 7.7 % (2.0-8.0); NEUTROPHILS # 5.4 10^3/uL (1.5-8.5); NEUTROPHILS % 53.7 % (36.0-66.0); PLATELET COUNT, AUTOMATED 240 10^3/uL (150-450); RED BLOOD COUNT 4.46 10^6/uL (4.00-5.40)
[2023-11-10 10:59] LABS: THYROID STIMULATING HORMONE 2.533 uIU/ML (0.55-4.78); TOTAL 25(OH) VITAMIN D 46.9 NG/ML (20.0-100.0)
[2023-11-10 11:01] LABS: ALBUMIN 3.7 G/DL (3.2-5.2); ALKALINE PHOSPHATASE 77 U/L (46-116); ALT/SGPT 14 U/L (7.0-40); AST/SGOT < 8 U/L (<34); BILIRUBIN,TOTAL 0.8 MG/DL (0.3-1.2); BLOOD UREA NITROGEN 12 MG/DL (9-23); CALCIUM LEVEL 9.5 MG/DL (8.5-10.1); CARBON DIOXIDE LEVEL 27 MMOL/L (20-31); CHLORIDE LEVEL 101 MMOL/L (98-107); CHOLESTEROL LEVEL 206 MG/DL (<200); CHOLESTEROL RISK RATIO 2.43 (<5); CREATININE FOR GFR 0.49 MG/DL (0.55-1.30); GLOMERULAR FILTRATION RATE > 60.0 (>60); GLUCOSE, FASTING 124 MG/DL (60-100); HDL CHOLESTEROL 84.5 MG/DL (>40); LDL CHOLESTEROL 71.1 MG/DL (<100); NON-HDL-C 121.5 MG/DL; POTASSIUM SERUM 4.5 MMOL/L (3.5-5.1); SODIUM LEVEL 136 MMOL/L (136-145); TOTAL PROTEIN 7.2 G/DL (5.7-8.2); TRIGLYCERIDES LEVEL 252 MG/DL (<150)
[2023-11-10 11:02] LABS: FREE T4 1.25 NG/DL (0.89-1.76); VITAMIN B12 LEVEL 1061 PG/ML (211-911)
[2023-11-10 14:21] LABS: IMMUNOGLOBULIN E 89.3 IU/ML (0-378)
[2023-11-10 14:22] LABS: THYROID PEROXIDASE ANTIBODY 46 U/ML (<60.0)
[2023-11-10 14:24] LABS: THYROGLOBULIN ANTIBODY < 15.0 U/ML (<60.0)
[2023-11-12 02:58] LABS: ALMOND IGE FOOD < 0.10 kU/L (<0.10); BERMUDA GRASS IGE < 0.10 kU/L (<0.10); BIRCH IGE < 0.10 kU/L (<0.10); CASHEW NUT IGE FOOD < 0.10 kU/L (<0.10); CODFISH IGE FOOD < 0.10 kU/L (<0.10); COMMON RAGWEED SHORT IGE < 0.10 kU/L (<0.10); COWS MILK FOOD < 0.10 kU/L (<0.10); D001 IGE D PTERONYSSINUS 3.49 kU/L (<0.10); D002-IGE D FARINAE 2.87 kU/L (<0.10); E001-IGE CAT DANDER < 0.10 kU/L (<0.10); E005-IGE DOG DANDER < 0.10 kU/L (<0.10); EGG WHITE FOOD < 0.1 kU/L (<0.10); ELM IGE < 0.10 kU/L (<0.10); HAZELNUT IGE FOOD < 0.10 kU/L (<0.10); I006 IGE COCKROACH 0.16 kU/L (<0.10); IMMUNOGLOBULIN E FOR ALLERGENS 95 kU/L (<OR=114); M002 IGE CLADOSPORIUM HERBARU < 0.10 kU/L (<0.10); M003 IGE ASPERGILLUS FUMIGATU < 0.10 kU/L (<0.10); M006 IGE ALTERNIA ALTERNATA < 0.10 kU/L (<0.10); M1-PENICILLIUM NOTATUM < 0.10 kU/L (<0.10); MOUSE URINE IGE < 0.10 kU/L (<0.10); MUGWORT IGE < 0.10 kU/L (<0.10); OAK IGE < 0.10 kU/L (<0.10); PEANUT IGE FOOD < 0.10 kU/L (<0.10); ROUGH PIGWEED IGE < 0.10 kU/L (<0.10); SALMON IGE FOOD < 0.10 kU/L (<0.10); SCALLOP IGE FOOD < 0.10 kU/L (<0.10); SESAME SEED IGE FOOD < 0.10 kU/L (<0.10); SHEEP SORREL IGE < 0.10 kU/L (<0.10); SHRIMP IGE FOOD < 0.10 kU/L (<0.10); SOYBEAN IGE FOOD < 0.10 kU/L (<0.10); SYCAMORE IGE < 0.10 kU/L (<0.10); T001-IGE MAPLE BOX ELDER < 0.10 kU/L (<0.10); T006-IGE MOUNTAIN CEDAR < 0.10 kU/L (<0.10); T014 COTTONWOOD IGE < 0.10 kU/L (<0.10); TIMOTHY GRASS IGE < 0.10 kU/L (<0.10); TUNA IGE FOOD < 0.10 kU/L (<0.10); WALNUT IGE FOOD < 0.10 kU/L (<0.10); WALNUT TREE IGE < 0.10 kU/L (<0.10); WHEAT IGE FOOD < 0.10 kU/L (<0.10); WHITE ASH IGE < 0.10 kU/L (<0.10); WHITE MULBERRY IGE < 0.10 kU/L (<0.10)
== END ==
LOC: M LAB 09:03
PROVIDERS: ATTEND Physician Assistant
DX: L50.9 Urticaria, unspecified (principal); Z91.09 Other allergy status, other than to drugs and biological substances; E11.65 Type 2 diabetes mellitus with hyperglycemia; L29.9 Pruritus, unspecified; Z13.220 Encounter for screening for lipoid disorders; E04.1 Nontoxic single thyroid nodule; E55.9 Vitamin D deficiency, unspecified

== ENCOUNTER → 2023-12-21 | Outpatient (CLI) | payer BC ==
[2023-12-21 12:26] LABS: BASO # 0.1 10^3/uL (0.0-0.2); BASO % 0.8 % (0.0-1.0); EOS # 0.1 10^3/uL (0.0-0.5); EOS % 2.1 % (0.0-3.0); HEMATOCRIT 39.6 % (36.0-47.0); HEMOGLOBIN 13.5 g/dl (12.0-15.5); LYMPH # 2.7 10^3/uL (1.5-5.0); LYMPH % 40.4 % (24.0-44.0); MEAN CORPUSCULAR HEMOGLOBIN 31.9 pg (27.0-33.0); MEAN CORPUSCULAR HGB CONC 34.1 g/dl (32.0-36.5); MEAN CORPUSCULAR VOLUME 93.6 fl (80.0-96.0); MONO # 0.5 10^3/uL (0.0-0.8); MONO % 7.1 % (2.0-8.0); NEUTROPHILS # 3.2 10^3/uL (1.5-8.5); NEUTROPHILS % 49.3 % (36.0-66.0); PLATELET COUNT, AUTOMATED 305 10^3/uL (150-450); RED BLOOD COUNT 4.23 10^6/uL (4.00-5.40); WHITE BLOOD COUNT 6.6 10^3/uL (4.0-10.0)
[2023-12-21 12:47] LABS: C REACTIVE PROTEIN QUANTITATIV < 0.40 MG/DL (<1.0); ERYTHROCYTE SEDIMENTATION RATE 19 mm/hr (0-20)
[2023-12-21 12:48] LABS: COMPLEMENT C3 165.1 MG/DL (84.0-160.0); COMPLEMENT C4 43.4 MG/DL (12-36); IMMUNOGLOBULIN G 1195 MG/DL (650-1600); RHEUMATOID FACTOR QUANT 5.7 IU/ML (<14)
[2023-12-21 12:52] LABS: IMMUNOGLOBULIN E 59.7 IU/ML (0-378)
[2023-12-25 14:28] LABS: C1 ESTER INHIB. NON FUNCTIONAL 37 mg/dL (21-39)
[2023-12-26 01:32] LABS: C1 ESTERASE INHIB. FUNCTIONAL > 100 % (>=68); COMPLEMENT TOTAL (CH50) > 60 U/mL (31-60)
[2023-12-26 01:51] LABS: TRYPTASE 3.2 mcg/L (<11.0)
== END ==
LOC: M LAB 11:39
PROVIDERS: ATTEND Allergy & Immunology Allergy
DX: T78.3XXA Angioneurotic edema, initial encounter (principal)

== ENCOUNTER → 2024-04-27 | Outpatient (CLI) | payer BC ==
[~2024-04-27] MED LIST changes: -DOXY-323 PO; +DOXY-441 PO
== END ==
LOC: M LAB 10:33
PROVIDERS: ATTEND Allergy & Immunology Allergy
DX: L50.1 Idiopathic urticaria (principal)

== ENCOUNTER → 2024-08-18 | Outpatient (REF) | payer BC ==
[2024-08-18 18:00] LABS: APPEARANCE, URINE HAZY (CLEAR); BACTERIA, URINE AUTO NEGATIVE (NEGATIVE); BILIRUBIN, URINE AUTO NEGATIVE (NEGATIVE); BLOOD, URINE BLOOD NEGATIVE (NEGATIVE); COLOR, URINE YELLOW (YELLOW); GLUCOSE, URINE (UA) AUTO NEGATIVE (NEGATIVE); KETONE, URINE AUTO NEGATIVE (NEGATIVE); LEUKOCYTE ESTERASE, URINE AUTO NEGATIVE (NEGATIVE); MUCUS, URINE LARGE (NEGATIVE); NITRITE, URINE AUTO NEGATIVE (NEGATIVE); PROTEIN, URINE AUTO 2+ mg/dL (NEGATIVE); RBC, URINE AUTO 1 /HPF (0-3); SPECIFIC GRAVITY URINE AUTO 1.031 (1.002-1.035); SQUAMOUS EPITHELIAL CELL UR AU 6 /HPF (0-6); UROBILINOGEN, URINE AUTO 0.2 mg/dL (0.0-2.0); WBC, URINE AUTO 3 /HPF (0-3)
== END ==
LOC: M LAB REF 17:41
PROVIDERS: ATTEND Physician Assistant Medical
DX: N39.0 Urinary tract infection, site not specified (principal)

== ENCOUNTER → 2024-11-12 | Outpatient (REF) | payer BC ==
[~2024-11-12] MED LIST changes: +AMIT10TA11 PO; -AMIT10TA7 PO
[2024-11-12 18:25] LABS: APPEARANCE, URINE CLEAR (CLEAR); BACTERIA, URINE AUTO 1+ (NEGATIVE); BILIRUBIN, URINE AUTO NEGATIVE (NEGATIVE); BLOOD, URINE BLOOD NEGATIVE (NEGATIVE); GLUCOSE, URINE (UA) AUTO NEGATIVE (NEGATIVE); KETONE, URINE AUTO NEGATIVE (NEGATIVE); LEUKOCYTE ESTERASE, URINE AUTO 2+ (NEGATIVE); MUCUS, URINE SMALL (NEGATIVE); NITRITE, URINE AUTO POSITIVE (NEGATIVE); PROTEIN, URINE AUTO NEGATIVE (NEGATIVE); RBC, URINE AUTO 1 /HPF (0-3); SPECIFIC GRAVITY URINE AUTO 1.005 (1.002-1.035); SQUAMOUS EPITHELIAL CELL UR AU 0 /HPF (0-6); UROBILINOGEN, URINE AUTO 4.0 mg/dL (0.0-2.0); WBC, URINE AUTO 16 /HPF (0-3)
== END ==
LOC: M LAB REF 17:06
PROVIDERS: ATTEND Physician Assistant Medical
DX: N39.0 Urinary tract infection, site not specified (principal)

== ENCOUNTER → 2025-01-11 | Outpatient (CLI) | payer BC ==
[~2025-01-11] MED LIST changes: -DIPH50CA PO; +DIPH50CA31 PO
[2025-01-11 14:14] LABS: CHOLESTEROL LEVEL 253.0 MG/DL (<200); CHOLESTEROL RISK RATIO 2.22 (<5); LDL CHOLESTEROL 127.0 MG/DL (<100); NON-HDL-C 139.4 MG/DL; TRIGLYCERIDES LEVEL 62.0 MG/DL (<150)
[2025-01-11 14:16] LABS: TOTAL 25(OH) VITAMIN D 64.8 NG/ML (20.0-100.0)
[2025-01-11 14:17] LABS: FREE T4 1.21 NG/DL (0.89-1.76)
[2025-01-11 14:29] LABS: ESTIMATED AVERAGE GLUCOSE 97.0 MG/DL (60-110)
== END ==
LOC: M PLALAB 08:25
PROVIDERS: ATTEND Nurse Practitioner Family
DX: E06.3 Autoimmune thyroiditis (principal); E55.9 Vitamin D deficiency, unspecified; E78.2 Mixed hyperlipidemia; E11.65 Type 2 diabetes mellitus with hyperglycemia

== ENCOUNTER → 2025-02-11 | Outpatient (REF) | payer BC ==
[2025-02-11 21:34] LABS: APPEARANCE, URINE CLEAR (CLEAR); BACTERIA, URINE AUTO 1+ (NEGATIVE); BILIRUBIN, URINE AUTO NEGATIVE (NEGATIVE); BLOOD, URINE BLOOD NEGATIVE (NEGATIVE); GLUCOSE, URINE (UA) AUTO NEGATIVE (NEGATIVE); KETONE, URINE AUTO NEGATIVE (NEGATIVE); LEUKOCYTE ESTERASE, URINE AUTO NEGATIVE (NEGATIVE); MUCUS, URINE SMALL (NEGATIVE); NITRITE, URINE AUTO NEGATIVE (NEGATIVE); PROTEIN, URINE AUTO NEGATIVE (NEGATIVE); RBC, URINE AUTO 0 /HPF (0-3); SPECIFIC GRAVITY URINE AUTO 1.006 (1.002-1.035); SQUAMOUS EPITHELIAL CELL UR AU 0 /HPF (0-6); UROBILINOGEN, URINE AUTO 0.2 mg/dL (0.0-2.0); WBC, URINE AUTO 0 /HPF (0-3)
== END ==
LOC: M LAB REF 21:14
PROVIDERS: ATTEND Physician Assistant Medical
DX: N39.0 Urinary tract infection, site not specified (principal)

== ENCOUNTER → 2025-04-23 | Outpatient (REF) | payer BC ==
[2025-04-23 17:41] LABS: APPEARANCE, URINE CLEAR (CLEAR); BACTERIA, URINE AUTO NEGATIVE (NEGATIVE); BILIRUBIN, URINE AUTO NEGATIVE (NEGATIVE); BLOOD, URINE BLOOD NEGATIVE (NEGATIVE); GLUCOSE, URINE (UA) AUTO NEGATIVE (NEGATIVE); KETONE, URINE AUTO NEGATIVE (NEGATIVE); LEUKOCYTE ESTERASE, URINE AUTO NEGATIVE (NEGATIVE); NITRITE, URINE AUTO NEGATIVE (NEGATIVE); PROTEIN, URINE AUTO NEGATIVE (NEGATIVE); RBC, URINE AUTO 0 /HPF (0-3); SPECIFIC GRAVITY URINE AUTO 1.008 (1.002-1.035); SQUAMOUS EPITHELIAL CELL UR AU 0 /HPF (0-6); UROBILINOGEN, URINE AUTO 0.2 mg/dL (0.0-2.0); WBC, URINE AUTO 0 /HPF (0-3)
== END ==
LOC: M LAB REF 17:02
PROVIDERS: ATTEND Physician Assistant Medical
DX: N39.0 Urinary tract infection, site not specified (principal)